=== PATIENT | male | born 1955 | race Caucasian/White ===

== ENCOUNTER 2024-07-28 18:17 | Inpatient (IN) ==
--- NOTE | 2024-07-28 18:24 | Emergency Department Note ---
Impression & Plan Obstructed Scott catheter, Gross hematuria ED Provider Note HISTORY OF PRESENT ILLNESS: Patient is a 68-year-old male presenting with suprapubic pain and concern for catheter complication. Patient had a Scott catheter placed yesterday for urinary obstruction secondary to gross hematuria from a left renal mass. He is scheduled for a left radical nephrectomy in 48 hours. He states that he has been drinking lots of water throughout the day today, but since 2 PM has only had about 100 cc of urine out in his leg bag. He states that he has significant pressure in his suprapubic region. He had called the urology phone number and was referred to the emergency department given his symptoms due to concern for potential need for catheter exchange. Patient is not on any anticoagulation or antiplatelet therapy. Denies any fevers. He has been tolerating the antibiotic without any issue. ROS: as above PHYSICAL EXAM: Constitutional: Patient appears in no acute distress. HENT: Head: Normocephalic and atraumatic. Eyes: EOMI, PERRL Mouth/Throat: Mucous membranes moist. Neck: Trachea midline. Neck supple. Cardiovascular: RRR, No murmurs, rubs or gallops. Intact distal pulses. Pulmonary/Chest: No respiratory distress. Breath sounds clear and equal bilaterally. No wheezes or rales. Abdominal: Abdomen soft, no tenderness, rebound or guarding. Scott catheter in place with leg bag attached to right lower leg. Leg bag has about 100 cc of jung bloody urine. Musculoskeletal: No edema, tenderness or deformity noted. Skin: Warm and dry. No rash, erythema, pallor or cyanosis Psychiatric: Appropriate mood and affect for situation. Neurological: Alert and keenly responsive. CN II-XII grossly intact, moving all extremities equally and fully. MDM: - Vitals signs showed tachycardia - History obtained via patient. History as above. - Chronic conditions affecting care: Hypothyroidism; HTN; left renal mass - Differential diagnoses include, but are not limited to: Renal mass; bladder mass; UTI; ureteral stone - Order placed for continuous cardiac monitoring. At this time, monitor showed rate of 98 bpm with normal sinus rhythm, per my interpretation. - External medical records reviewed. Urine culture from 07/27/2024 was reviewed. Patient has not grown any bacteria. on call pharmacy technician duty note written by Dr. Huang from [id number] was reviewed. He had called in a prescription for tamsulosin to see if it helps with patient's bladder spasms. However, he recommended the patient present to the ER if he notices that his catheter is not draining. -I was at bedside when nursing attempted to manually flush the patient's catheter. The catheter flushed easily but no urine was expressed from the catheter itself. Discussed options with the patient, including removal of the catheter and attempt at spontaneous voiding trial as well as removal of the catheter and replacement with a three-way Scott. Patient was agreeable to placement of a three-way Scott catheter. Decision was made to insert the three- way Scott and do continuous bladder irrigation. Uro-Jet was given to the patient before catheter replacement for some anesthetic. - 3 way scott catheter was placed by nursing staff. Patient was started on continuous bladder irrigation. However, he did clot off while on CBI. This required some manipulation by nursing staff. CBI then was continued. - Discussed case with urologist on-call, Dr. Huang, at 21:44. He was in agreement to bring the patient in for continued CBI, given his gross hematuria. - IV access was obtained and labs sent. Type and screen ordered. - Laboratory workup interpreted by myself showed leukocytosis (WBC 12.11); stable hemoglobin (12.7); stable electrolytes; normal creatinine (though has trended up over the last few days) - Discussion was had with business case analyst about patient's case and need for admission - Hospitalist consulted for admission - [facility] ASSESSMENT AND PLAN: Diagnosis: Gross hematuria; obstructed Scott catheter Plan: Admit Past Med/Surg History Problem List Gross hematuria (Acute) Obstructed Scott catheter (Acute) Scott catheter in place (Acute) Acute urinary retention (Acute) Left kidney mass (Acute) Painless hematuria (Acute) Hypothyroidism (acquired) (~1998) Elevated blood pressure reading in office without diagnosis of hypertension Diverticulitis Medical History Encounter for pre-operative examination Lumbar herniated disc Painless hematuria "it comes and goes" History of hypothyroidism per chart, pt. states [facility] [place] [facility]" Hypertension History of diverticulitis Left kidney mass no biopsy Surgical History History of open reduction and internal fixation (ORIF) procedure (1974) left arm History of partial colectomy (1998) 6 inches removed due to diverticulitis History of appendectomy Hx of cholecystectomy (~1998) Family History Denies family history of Ovarian cancer Prostate cancer Myocardial infarction Breast cancer Colorectal cancer Social History Smoking Status: Current every day smoker Second Hand Exposure: No; Do You Dip or Chew Tobacco: No; Hx Alcohol Use: Yes Alcohol Intake Frequency: Monthly or Less Alcohol Intake Frequency Comment: social Hx Substance Use: No Preferred Language: Maltese Communication Ability: Effective Visual Impairment: No Limitations Hearing Ability: Normal Molder Helper Required: No Beliefs That Will Affect Care: None marital status: Current Living Situation: Spouse current occupational status: employed How many Children do You have: 6 Feels Safe at Home: Yes Childhood Exposure to Second-Hand Smoke: No Diet: regular caffeine: Yes during the past year weight has: remained stable Dental Care, Regularly: No Physical Activity Frequency: Daily Seatbelt Use: always Sunscreen Use: Yes Assistive Devices: Denture - Upper and Glasses Allergies Allergies Allergy/AdvReac Type Severity Reaction Status Date / Time amoxicillin [From Augmentin] Allergy Mild Throat Verified 07/24/24 08:14 bleeding clavulanic acid Allergy Mild throat Verified 07/24/24 08:14 [From Augmentin] bleeding Home Meds Home Medications Medication Instructions Recorded Confirmed lisinopril 10 mg tablet 10 mg PO QAM 07/22/24 07/28/24 Lactobacillus acidophilus 10 10,000 mmu cells PO DAILY 07/24/24 07/28/24 billion cell capsule (Probiotic) Total Beet 650 mg PO DAILY 07/24/24 07/28/24 carica papaya (Papaya Enzyme 1 tab PO DAILY 07/24/24 07/28/24 tablet) cholecalciferol (vitamin D3) 25 25 mcg PO DAILY 07/24/24 07/28/24 mcg (1,000 unit) tablet (Vitamin D3) cinnamon bark 500 mg capsule 1,000 mg PO DAILY 07/24/24 07/28/24 (Cinnamon) coenzyme Q10 100 mg capsule (Co 100 mg PO DAILY 07/24/24 07/28/24 Q-10) folic acid 800 mcg tablet 0.8 mg PO DAILY 07/24/24 07/28/24 garlic 1,000 mg capsule 1,000 mg PO DAILY 07/24/24 07/28/24 magnesium 250 mg tablet 250 mg PO DAILY 07/24/24 07/28/24 multivitamin 1 tab PO DAILY 07/24/24 07/28/24 omega 8-eln-gup-fish oil 1,000 mg 1 cap PO DAILY 07/24/24 07/28/24 (120 mg-180 mg) capsule (Fish Oil) omega-3 240 nv-zzo-njp-cod liver 1 cap PO DAILY 07/24/24 07/28/24 oil 1,000 mg-vit A-vit D3 capsule (cod liver oil) potassium 99 mg tablet 99 mg PO DAILY 07/24/24 07/28/24 vitamin A-vitamin C-vitamin E 1 tab PO DAILY 07/24/24 07/28/24 vitamin E 200 unit capsule 180 mg PO DAILY 07/24/24 07/28/24 Previous Rx's Medication Instructions Recorded cefdinir 300 mg capsule 300 mg PO BID 10 days #20 caps 07/27/24 tamsulosin 0.4 mg capsule 0.4 mg PO DAILY #30 caps 07/28/24 Results & Data (ED) Vital Signs Vital Signs - 24 hr 07/28/24 18:17 07/28/24 18:17 07/28/24 20:30 Temperature 36.6 C Temperature Source Temporal Artery Scan Pulse Rate 98 H Pulse Rate [Apical] 74 Respiratory Rate 18 18 18 Blood Pressure 132/85 Blood Pressure [Left Arm] 146/75 H Blood Pressure Mean 100 Blood Pressure Mean [Left Arm] 98 Pulse Oximetry 95 94 Oxygen Delivery Method Room Air Sepsis Recent Fever Within 48 Hours No Sepsis New/Unexplained Change in Mental Status N/A Sepsis Action Taken by Nursing No Action Required Laboratory Data 07/28/24 20:58 07/28/24 20:58 Lab Results 07/28/24 Range/Units 20:58 WBC 12.11 H (4.8-10.8) K/ul RBC 4.28 L (4.70-6.10) M/uL Hgb 12.7 L (14.0-18.0) g/dl Hct 39.2 L (42.0-52.0) % MCV 91.6 (80.0-100.0) fL MCH 29.7 (25.0-34.0) pg MCHC 32.4 (32.0-36.0) g/dL RDW Std Deviation 43.4 (36.4-46.3) fL RDW Coeff of Jil 13.1 (11.5-14.5) % Plt Count 244 (130-400) K/uL MPV 9.9 (9.4-12.4) fL Immature Gran % (Auto) 0.3 % Neut % (Auto) 67.6 % Lymph % (Auto) 18.2 % [place] % (Auto) 12.5 % Eos % (Auto) 1.0 % Baso % (Auto) 0.4 % Neut # (Auto) 8.19 H (1.40-6.50) K/uL Lymph # (Auto) 2.20 (1.20-3.40) K/uL [place] # (Auto) 1.51 H (0.11-0.59) K/uL Eos # (Auto) 0.12 (0.00-0.50) K/uL Baso # (Auto) 0.05 (0.00-0.20) K/uL Immature Gran # (Auto) 0.04 (0.01-0.20) K/uL Sodium 135 L (136-145) mmol/L Potassium 4.2 (3.5-5.1) mmol/L Chloride 100 (98-107) mmol/L Carbon Dioxide 26 (21-32) mmol/L Anion Gap 9 (3-11) BUN 22 (6-23) mg/dl Creatinine 1.35 (0.6-1.4) mg/dl Est Cr Clr Drug Dosing 57.5 ml/min eGFR 56.83 BUN/Creatinine Ratio 16.3 (10-20) Glucose 106 H (70-99(Fasting)) mg/dl Calcium 10.1 (8.6-10.3) mg/dl Total Bilirubin 0.5 (0.2-1.0) mg/dl AST 17 (13-39) U/L ALT 8 (7-52) U/L Alkaline Phosphatase 78 (34-104) U/L Total Protein 7.9 (6.0-8.3) gm/dl Albumin 4.3 (3.4-5.0) gm/dl Globulin 3.6 (2.5-4.0) gm/dl Albumin/Globulin Ratio 1.2 (0.9-2) Administered Medications Discontinued Medications Lidocaine HCl (Lidocaine 2% Jelly 5 Ml Tube) 5 ml EXT NOW ONE Stop: 07/28/24 18:42 Last Admin: 07/28/24 19:08 Dose: 5 ml Documented By: [email or web address] Tamsulosin HCl (Tamsulosin Hcl 0.4 Mg Cap) 0.4 mg PO NOW ONE Stop: 07/28/24 18:42 Last Admin: 07/28/24 19:08 Dose: 0.4 mg Documented By: OUMOU Discharge Plan Visit Data Chief Complaint: Catheter Replacement Stated Complaint: CATHETER ISSUE ED Provider: Kiya Noel Discharge Problem: Obstructed Scott catheter, Gross hematuria Discharge Instructions Krames/Other Patient Handouts: Indwelling Urinary Catheter Dc, ED Scott Catheter, Care Forms Stand Alone Forms: [facility] Prescriptions Prescriptions: No Action tamsulosin 0.4 mg capsule 0.4 mg PO DAILY Qty: 30 0RF lisinopril 10 mg tablet 10 mg PO QAM multivitamin Tablet 1 tab PO DAILY vitamin E 200 unit Capsule 180 mg PO DAILY Papaya Enzyme Tablet 1 tab PO DAILY Rx Instructions: administer with meals garlic 1,000 mg Capsule 1,000 mg PO DAILY potassium 99 mg Tablet 99 mg PO DAILY magnesium 250 mg Tablet 250 mg PO DAILY folic acid 800 mcg Tablet 0.8 mg PO DAILY Antioxidant Tablet,Chewable 1 tab PO DAILY coenzyme Q10 [Co Q-10] 100 mg Capsule 100 mg PO DAILY cinnamon bark [Cinnamon] 500 mg Capsule 1,000 mg PO DAILY cholecalciferol (vitamin D3) [Vitamin D3] 25 mcg (1,000 unit) Tablet 25 mcg PO DAILY omega 5-xjs-nmb-fish oil [Fish Oil] 1,000 (120-180) mg Capsule 1 cap PO DAILY Probiotic 10 billion cell Capsule 10,000 mmu cells PO DAILY cod liver oil 240-1,000 mg Capsule 1 cap PO DAILY Total Beet 1 unit 650 mg PO DAILY cefdinir 300 mg capsule 300 mg PO BID 10 Days Qty: 20 0RF Referrals Referrals: Marito Zaman DO [Primary Care Provider] -
[2024-07-28] MEDS: LIDOCAINE 2% JELLY 5 ML TUBE EXT ONE (19:08)
[2024-07-28] MEDS: TAMSULOSIN HCL 0.4 MG CAP PO ONE (19:08)
--- NOTE | 2024-07-28 21:13 | Urology Consultation ---
<Statement entered by Taran Huang MD - 07/29/24 12:28> 68-year-old male with hematuria, likely related to his left renal mass. Would recommend continuing CBI, hand irrigate if needed for clots. He is already scheduled for nephrectomy on 07/30, which will hopefully be definitive management for his hematuria. Urology will follow along. Date of Consultation July 28, 2024 Assessment & Plan (1) Obstructed Breen catheter: I discussed with the treating emergency room physician the patient is being admitted on the hospitalist service. From a urologic perspective we recommend the following: In the emergency department the patient had his existing Breen catheter removed and an 17 Citizen [place] three-way Breen catheter was placed by the nursing staff. Continuous bladder irrigation was initiated and the patient's catheter clogged again. The emergency department staff was able to flush and irrigate the catheter and get continuous bladder irrigation running which is now clear. Would recommend continuing continuous bladder irrigation at this time If patient's catheter becomes clogged again, CBI can be temporarily halted and manual flushing and irrigation can be employed to unclog the catheter, reinstituting CBI thereafter Would recommend following serial hemoglobin and hematocrit Will monitor the patient's clinical status. If it appears that the patient needs to remain hospitalized until 07/30/[address] Kc so appropriate arrangements can be made for patient potentially have his surgery performed on an inpatient basis Additional recommendations will be forthcoming based on his clinical course as it unfolds Addendum (5:50 am) I was called by nursing staff the patient's continuous bladder irrigation and clotted off and they were unable to successfully and irrigate the catheter. The nurses noted that they BladderScan the patient for approximately 381 cc of urine. Due to the Breen catheter not draining the nurses had appropriately shut off the continuous bladder irrigation. I was notified of this at approximately 590 a.m. and reported the bedside within 5 minutes. Upon reporting to the bedside the patient was complaining of some bladder/suprapubic discomfort. I hand irrigated the Breen catheter with copious amounts of sterile saline. While performing this maneuver I retrieved several blood clots. I performed this until the urine was clear without any further visible clots. Following this the continuous bladder irrigation was turned back on and was running appropriately draining pink-tinged urine with no visible clots at this time. The patient reported a marked symptomatic relief. Will continue monitor closely History of Present Illness Reason for Consultation: Urinary retention History of Present Illness This is a 68-year-old male who is scheduled for a left radical nephrectomy by Dr. Kc of [facility] physician of urology on 07/30/2024. The patient was recently in the emergency department on 07/27/2024 secondary to urinary retention. Patient had a catheter placed at that time and was able to be discharged home. Of note, on 07/27/2024 CBC revealed white blood cell count was 12.1. His hemoglobin and hematocrit were 13.0 and 39.2. His platelet count was 275,000. Coagulation studies were noted to be normal. Chemistry profile showed sodium was 131 with a potassium of 4.2. His BUN and creatinine were both normal. Urinalysis showed 1+ leukocyte Estrace and 11-20 white blood cells per high-power field. There is no bacteria or nitrates noted on this study. Due to his urinalysis results the patient was given intravenous Rocephin in the emergency department and discharged home on oral cefdinir. The patient presented back to the emergency department this evening secondary to suprapubic discomfort and he noted that he has had minimal drainage from his catheter with some leakage around the catheter. He was concerned that his catheter was blocked so he presented to the emergency department. He specifically denies any lightheadedness or dizziness. He denies any fevers, shakes, or chills. He denies any nausea or vomiting. He does report suprapubic discomfort as noted above but denies any overt abdominal pain. He also denies any back or flank pain. Repeat laboratory work has been sent and is pending at this time. At the time of my interview he was resting comfortably in bed he was in no distress. Allergies Allergy/AdvReac Type Severity Reaction Status Date / Time amoxicillin [From Augmentin] Allergy Mild Throat Verified 07/24/24 08:14 bleeding clavulanic acid Allergy Mild throat Verified 07/24/24 08:14 [From Augmentin] bleeding Home Medications Medication Instructions Recorded Confirmed Type lisinopril 10 mg tablet 10 mg PO QAM 07/22/24 07/28/24 History Lactobacillus acidophilus 10 10,000 mmu cells PO DAILY 07/24/24 07/28/24 History billion cell capsule (Probiotic) Total Beet 650 mg PO DAILY 07/24/24 07/28/24 History carica papaya (Papaya Enzyme 1 tab PO DAILY 07/24/24 07/28/24 History tablet) cholecalciferol (vitamin D3) 25 25 mcg PO DAILY 07/24/24 07/28/24 History mcg (1,000 unit) tablet (Vitamin D3) cinnamon bark 500 mg capsule 1,000 mg PO DAILY 07/24/24 07/28/24 History (Cinnamon) coenzyme Q10 100 mg capsule (Co 100 mg PO DAILY 07/24/24 07/28/24 History Q-10) folic acid 800 mcg tablet 0.8 mg PO DAILY 07/24/24 07/28/24 History garlic 1,000 mg capsule 1,000 mg PO DAILY 07/24/24 07/28/24 History magnesium 250 mg tablet 250 mg PO DAILY 07/24/24 07/28/24 History multivitamin 1 tab PO DAILY 07/24/24 07/28/24 History omega 3-ddx-kyn-fish oil 1,000 mg 1 cap PO DAILY 07/24/24 07/28/24 History (120 mg-180 mg) capsule (Fish Oil) omega-3 240 bn-lnn-hbt-cod liver 1 cap PO DAILY 07/24/24 07/28/24 History oil 1,000 mg-vit A-vit D3 capsule (cod liver oil) potassium 99 mg tablet 99 mg PO DAILY 07/24/24 07/28/24 History vitamin A-vitamin C-vitamin E 1 tab PO DAILY 07/24/24 07/28/24 History vitamin E 200 unit capsule 180 mg PO DAILY 07/24/24 07/28/24 History cefdinir 300 mg capsule 300 mg PO BID 10 days #20 caps 07/27/24 07/28/24 Rx tamsulosin 0.4 mg capsule 0.4 mg PO DAILY #30 caps 07/28/24 07/28/24 Rx Patient History Medical History Encounter for pre-operative examination Lumbar herniated disc Painless hematuria "it comes and goes" History of hypothyroidism per chart, pt. states [facility] [place] [facility]" Hypertension History of diverticulitis Left kidney mass no biopsy Surgical History History of open reduction and internal fixation (ORIF) procedure (1974) left arm History of partial colectomy (1998) 6 inches removed due to diverticulitis History of appendectomy Hx of cholecystectomy (~1998) Family History Denies family history of Ovarian cancer Prostate cancer Myocardial infarction Breast cancer Colorectal cancer Social History Smoking Status: Current every day smoker Second Hand Exposure: No; Do You Dip or Chew Tobacco: No; Hx Alcohol Use: Yes Alcohol Intake Frequency: Monthly or Less Alcohol Intake Frequency Comment: social Hx Substance Use: No Preferred Language: Setswana Communication Ability: Effective Visual Impairment: No Limitations Hearing Ability: Normal Riding Double Required: No Beliefs That Will Affect Care: None marital status: Current Living Situation: Spouse current occupational status: employed How many Children do You have: 6 Feels Safe at Home: Yes Childhood Exposure to Second-Hand Smoke: No Diet: regular caffeine: Yes during the past year weight has: remained stable Dental Care, Regularly: No Physical Activity Frequency: Daily Seatbelt Use: always Sunscreen Use: Yes Assistive Devices: Denture - Upper and Glasses Review of Systems Review of Systems: All systems reviewed & are unremarkable except as noted in HPI & below Physical Exam Constitutional: WD/WN, vitals as above Eyes: no conjunctival abnormality Wears glasses ENMT: Ears: no hearing impairment and no external ear abnormality Mouth: no oropharynx abnormality Neck: trachea midline Respiratory: normal respiratory effort; no respiratory distress and no labored breathing Cardiovascular: Rate/Rhythm: regular rate and regular rhythm Gastrointestinal (Abdomen): Abdomen is rotund but soft. There is no pain with palpation Musculoskeletal: No calf tenderness Skin: no rashes Neurologic: moves all extremities Psychiatric: A+Ox3, euthymic affect Genitourinary: No CVA tenderness with percussion bilaterally Breen catheter is in place with continuous bladder irrigation running. The catheter output appears to be clear at this time Results & Data Vital Signs (Past 12 Hours) Vital Signs Temp Pulse Resp BP Pulse Ox 07/28/24 18:17 18 07/28/24 18:17 36.6 C 98 H 18 132/85 95 PG Care Time/CCT Total # of Minutes Spent Total Time Spent with Patient: Total time spent is greater than 50% in coordination of care (as documented) at patient's floor/unit and/or counseling patient: Coding Level of Care Code 24692 INT INP/OBS CARE 3/75MIN Diagnoses Obstructed Breen catheter T83.091A
[2024-07-28 21:14] LABS: Basophils # (auto) 0.05 K/uL (0.00-0.20); Basophils % (auto) 0.4 %; Eosinophils # (auto) 0.12 K/uL (0.00-0.50); Hematocrit (blood only) 39.2 % (42.0-52.0); Hemoglobin 12.7 g/dl (14.0-18.0); Immature Granulocytes # (auto) 0.04 K/uL (0.01-0.20); Immature Granulocytes % (auto) 0.3 %; Lymphocytes % (auto) 18.2 %; Mean Corpuscular Hemoglobin 29.7 pg (25.0-34.0); Mean Corpuscular Hgb Conc 32.4 g/dL (32.0-36.0); Mean Corpuscular Volume 91.6 fL (80.0-100.0); Mean Platelet Volume 9.9 fL (9.4-12.4); Monocytes # (auto) 1.51 K/uL (0.11-0.59); Monocytes % (auto) 12.5 %; Neutrophils # (auto) 8.19 K/uL (1.40-6.50); Neutrophils % (auto) 67.6 %; Platelet Count 244 K/uL (130-400); RDW Coefficient of Variation 13.1 % (11.5-14.5); RDW Standard Deviation 43.4 fL (36.4-46.3); Red Blood Count 4.28 M/uL (4.70-6.10); White Blood Count 12.11 K/ul (4.8-10.8)
[2024-07-28 21:29] LABS: Albumin Globulin Ratio 1.2 (0.9-2); Albumin Level 4.3 gm/dl (3.4-5.0); BUN Creatinine Ratio 16.3 (10-20); Bilirubin,Total 0.5 mg/dl (0.2-1.0); Calcium 10.1 mg/dl (8.6-10.3); Creatinine Clr Calc Pharmacy 57.5 ml/min; Globulin 3.6 gm/dl (2.5-4.0); Potassium 4.2 mmol/L (3.5-5.1); Total Protein 7.9 gm/dl (6.0-8.3)
--- NOTE | 2024-07-28 22:32 | History & Physical Report ---
Date of Service July 28, 2024 Assessment & Plan (1) Gross hematuria: (2) Obstructed Breen catheter: (3) Acute urinary retention: (4) Left kidney mass: Plan Patient is a 68 yo w/ a PMHx of l. kidney mass, Hx of diverticulitis, Hx of hypothyroidism (no longer on thyroid meds), lumbar herniated disc, HTN, Hx of appendectomy, Hx of partial colectomy, Hx of cholecystectomy, presenting with suprapubic pain, concern for catheter complication involving urinary obstruction followed by gross hematuria. Patient had a Breen catheter placed 07/27 for urinary obstruction secondary to gross hematuria from a left renal mass. 1) Urinary obstruction/Hematuria/L. Renal mass - continue CBI (continuous bladder irrigation) - hemodynamically stable; labs stable: Hgb, 12.7; Plts, 244 - Urology consulted - UA (07/27): +LE, 10-20 WBC, +3Ur Blood; new UA (w/ reflex Cx) ordered, pending - Started ceftriaxone, 2000g, IV, q24 hrs - Surg scheduled in 48 hrs from time of admission (may be moved up) Chronic stable conditions #HTN - continue lisinopril, 10 mg, daily #Preventive Health - on a variety of vitamins, supplements - continued multivitamin, Mg, Code status: Full code VTE Prophylaxis: SCD's (to the knee) Diet: NPO/ Heart-healthy once able to eat Disposition: Med-Tele Admission and Anticipated Discharge Date Admission Date: Attending addendum: I have physically seen this patient, have supervised the medical residents activities, and agree with the H&P unless as otherwise noted. Assessment and Plan: The patient is a 68-year-old male with past medical history including left kidney mass, history of diverticulitis, hypothyroidism, lumbar herniated disc, hypertension, appendectomy, partial colectomy, cholecystectomy. He presents to the emergency department with suprapubic pain, and gross hematuria, concerning for possible complication of catheter and urinary obstruction. He had a Breen catheter placed on 07/27, and in the emergency department was able to have it irrigated clear, and patient was started on continuous bladder irrigation. The patient was then referred for evaluation for [facility]. Urinary obstruction/hematuria/left renal mass/Breen catheter complication- Follow urine culture and sensitivity Continue continuous bladder irrigation Ceftriaxone 2 g IV every 24 hours Continue tamsulosin 0.4 mg p.o. daily Consult urology, with plans to potentially undergo surgery in the next 48 hours Hypertension- Hold lisinopril History of Present Illness Chief Complaint: urinary retention, hematuria Primary Care Provider: Marito Zaman DO Patient is a 68 yo w/ a PMHx of l. kidney mass, Hx of diverticulitis, Hx of hypothyroidism (no longer on thyroid meds), lumbar herniated disc, HTN, Hx of appendectomy, Hx of partial colectomy, Hx of cholecystectomy, presenting with suprapubic pain, concern for catheter complication involving urinary obstruction followed by gross hematuria. Patient had a Breen catheter placed 07/27 for urinary obstruction secondary to gross hematuria from a left renal mass. He is scheduled for a left radical nephrectomy in 48 hours. He states that he has been drinking lots of water throughout the day today, but since 2 pm has only had about 100 cc of urine out in his leg bag. He states pressure has been relieved temporarily in his suprapubic region once the CBI was started. He had called the urology phone number and was referred to the emergency department given his symptoms due to concern for potential need for catheter exchange. Patient is not on any anticoagulation or antiplatelet therapy. Denies any fevers. He has been taking cefdinir as scheduled and took some tamsulosin tonight as well. Allergies Allergy/AdvReac Type Severity Reaction Status Date / Time amoxicillin [From Augmentin] Allergy Mild Throat Verified 07/24/24 08:14 bleeding clavulanic acid Allergy Mild throat Verified 07/24/24 08:14 [From Augmentin] bleeding Home Medications Medication Instructions Recorded Confirmed Type lisinopril 10 mg tablet 10 mg PO QAM 07/22/24 07/28/24 History Lactobacillus acidophilus 10 10,000 mmu cells PO DAILY 07/24/24 07/28/24 History billion cell capsule (Probiotic) Total Beet 650 mg PO DAILY 07/24/24 07/28/24 History carica papaya (Papaya Enzyme 1 tab PO DAILY 07/24/24 07/28/24 History tablet) cholecalciferol (vitamin D3) 25 25 mcg PO DAILY 07/24/24 07/28/24 History mcg (1,000 unit) tablet (Vitamin D3) cinnamon bark 500 mg capsule 1,000 mg PO DAILY 07/24/24 07/28/24 History (Cinnamon) coenzyme Q10 100 mg capsule (Co 100 mg PO DAILY 07/24/24 07/28/24 History Q-10) folic acid 800 mcg tablet 0.8 mg PO DAILY 07/24/24 07/28/24 History garlic 1,000 mg capsule 1,000 mg PO DAILY 07/24/24 07/28/24 History magnesium 250 mg tablet 250 mg PO DAILY 07/24/24 07/28/24 History multivitamin 1 tab PO DAILY 07/24/24 07/28/24 History omega 6-ctv-jzx-fish oil 1,000 mg 1 cap PO DAILY 07/24/24 07/28/24 History (120 mg-180 mg) capsule (Fish Oil) omega-3 240 fq-gqn-nwo-cod liver 1 cap PO DAILY 07/24/24 07/28/24 History oil 1,000 mg-vit A-vit D3 capsule (cod liver oil) potassium 99 mg tablet 99 mg PO DAILY 07/24/24 07/28/24 History vitamin A-vitamin C-vitamin E 1 tab PO DAILY 07/24/24 07/28/24 History vitamin E 200 unit capsule 180 mg PO DAILY 07/24/24 07/28/24 History cefdinir 300 mg capsule 300 mg PO BID 10 days #20 caps 07/27/24 07/28/24 Rx tamsulosin 0.4 mg capsule 0.4 mg PO DAILY #30 caps 07/28/24 07/28/24 Rx Past Med/Surg History Problem List Gross hematuria (Acute) Obstructed Breen catheter (Acute) Breen catheter in place (Acute) Acute urinary retention (Acute) Left kidney mass (Acute) Painless hematuria (Acute) Hypothyroidism (acquired) (~1998) Elevated blood pressure reading in office without diagnosis of hypertension Diverticulitis Medical History Encounter for pre-operative examination Lumbar herniated disc Painless hematuria "it comes and goes" History of hypothyroidism per chart, pt. states [facility] [place] and "[facility]'s ok" Hypertension History of diverticulitis Left kidney mass no biopsy Surgical History History of open reduction and internal fixation (ORIF) procedure (1974) left arm History of partial colectomy (1998) 6 inches removed due to diverticulitis History of appendectomy Hx of cholecystectomy (~1998) Family History Denies family history of Ovarian cancer Prostate cancer Myocardial infarction Breast cancer Colorectal cancer Social History Smoking Status: Current every day smoker Second Hand Exposure: No; Do You Dip or Chew Tobacco: No; Hx Alcohol Use: Yes Alcohol Intake Frequency: Monthly or Less Alcohol Intake Frequency Comment: social Hx Substance Use: No Preferred Language: Mongolian Communication Ability: Effective Visual Impairment: No Limitations Hearing Ability: Normal 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 Beliefs That Will Affect Care: None marital status: Current Living Situation: Spouse current occupational status: employed How many Children do You have: 6 Feels Safe at Home: Yes Childhood Exposure to Second-Hand Smoke: No Diet: regular caffeine: Yes during the past year weight has: remained stable Dental Care, Regularly: No Physical Activity Frequency: Daily Seatbelt Use: always Sunscreen Use: Yes Assistive Devices: Denture - Upper and Glasses Review of Systems Constitutional: no fever, no chills and no body aches Respiratory: no cough, no chest congestion, no dyspnea and no wheezing Cardiovascular: no chest pain and no palpitations Gastrointestinal: no abdominal pain, no nausea, no vomiting, no constipation and no diarrhea/loose stools Genitourinary: + difficulty urinating, + decreased urin ation, + hematuria and + genital pain; no flank pain or no scrotal swelling Hematologic / Lymphatic: no easy bleeding and no easy bruising Physical Exam Constitutional: WD/WN, vitals as above Respiratory: normal respiratory effort, lungs clear to auscultation Cardiovascular: RRR, no murmur, no edema Gastrointestinal (Abdomen): normal bowel sounds, soft, nontender, no hepatosplenomegaly Psychiatric: A+Ox3, euthymic affect Genitourinary: bladder normal to inspection and bladder normal to palpation; no CVA tenderness, no penis abnormality and no scrotum abnormality Results & Data Results & Data Vital Signs (Past 12 Hours) Vital Signs Temp Pulse Pulse Resp BP BP Pulse Ox 07/28/24 22:00 78 18 127/81 93 07/28/24 20:30 74 18 146/75 H 94 07/28/24 18:17 18 07/28/24 18:17 36.6 C 98 H 18 132/85 95 O2 Del Method 07/28/24 22:00 Room Air 07/28/24 20:30 Room Air 07/28/24 18:17 07/28/24 18:17
[2024-07-29] MEDS: cefTRIAXone SODIUM 2,000 MG/50 ML BAG IV SCH (01:29)
--- NOTE | 2024-07-29 04:54 | Billing Data ---
Date of Service July 29, 2024 Coding Level of Care Code 84829 INT INP/OBS CARE
[2024-07-29] MEDS: PHENAZOPYRIDINE HCL 200 MG TAB PO PRN (05:04)
[2024-07-29] MEDS: ACETAMINOPHEN 325 MG TAB PO PRN (08:04)
[2024-07-29] MEDS: CHOLECALCIFEROL 25 MCG (1000 UNITS) TAB PO SCH (08:05)
[2024-07-29] MEDS: lisinopril 10 MG TAB PO SCH (08:05)
[2024-07-29] MEDS: FOLIC ACID 400 MCG TAB PO SCH (08:05)
[2024-07-29] MEDS: MAGNESIUM OXIDE 400 MG TAB PO SCH (08:05)
[2024-07-29] MEDS: MULTIVITAMIN TAB PO SCH (08:06)
[2024-07-29] MEDS: TAMSULOSIN HCL 0.4 MG CAP PO SCH (08:06)
--- NOTE | 2024-07-29 08:36 | Hospitalist Progress Note ---
Date of Service July 29, 2024 Assessment & Plan (1) Gross hematuria: (2) Obstructed Breen catheter: (3) Acute urinary retention: (4) Left kidney mass: Plan Patient is a 68 yo w/ a PMHx of l. kidney mass, Hx of diverticulitis, Hx of hypothyroidism (no longer on thyroid meds), lumbar herniated disc, HTN, Hx of appendectomy, Hx of partial colectomy, Hx of cholecystectomy, presenting with suprapubic pain, concern for catheter complication involving urinary obstruction followed by gross hematuria. Patient had a Breen catheter placed 07/27 for urinary obstruction secondary to gross hematuria from a left renal mass. 1) Urinary obstruction/Hematuria/L. Renal mass - continue CBI (continuous bladder irrigation) - hemodynamically stable; labs stable: - Urology plans for cysto and radical left nephrectomy 07/30/24 - Started ceftriaxone, 2000g, IV, q24 hrs Chronic stable conditions #HTN - continue lisinopril, 10 mg, daily #Preventive Health - on a variety of vitamins, supplements - continued multivitamin, Mg, Code status: Full code VTE Prophylaxis: SCD's (to the knee) Admission and Anticipated Discharge Date Admission Date: July 29, 2024 Subjective pt is in good spirits, did have some hand irrigation this am 07/29/24, tentatively scheduled for left radical nephrectomy 07/30/24 urine has cleared with CBI Physical Exam Physical Exam: Pleasant abd is without pain to examination Results & Data Results & Data Vital Signs (Past 12 Hours) Vital Signs Temp Pulse Pulse Pulse Resp BP BP 07/29/24 07:01 98.1 F 82 16 128/78 07/29/24 02:40 98.2 F 94 H 20 174/78 H 07/29/24 02:15 76 18 145/81 H 07/29/24 00:00 79 18 126/70 07/28/24 23:10 82 07/28/24 23:09 81 18 07/28/24 22:00 78 18 127/81 Pulse Ox O2 Del Method 07/29/24 07:01 92 Room Air 07/29/24 02:40 98 Room Air 07/29/24 02:15 98 07/29/24 00:00 94 Room Air 07/28/24 23:10 07/28/24 23:09 96 Room Air 03/16/25 22:00 93 Room Air Laboratory Results review cbc review chemistry PG Care Time/CCT Total # of Minutes Spent Total Time Spent with Patient: Total time spent is greater than 50% in coordination of care (as documented) at patient's floor/unit and/or counseling patient: Coding Level of Care Code 88959 SUB INP/OBS CARE 3/50MIN Diagnoses Gross hematuria R31.0 Obstructed Breen catheter T83.091A Acute urinary retention R33.8 Left kidney mass N28.89
[2024-07-29] MEDS ORDERED: NON-FORMULARY MEDICATION (Coenzyme Q10 [Co Q-10] 100 mg Capsule) PO SCH (09:00)
[2024-07-29] MEDS ORDERED: NON-FORMULARY MEDICATION (Potassium 99 mg Tablet) PO SCH (09:00)
[2024-07-29 09:01] LABS: Appearance Urine Clear (Clear); Bacteria Urine Automated None Seen (None Seen); Bilirubin Urine Negative (Negative); Blood Urine 3+ (Negative); Cast Urine Automated 0-2 /lpf (0-2); Color Urine Yellow; Epithelial Cell Urine Auto 0-2 /hpf (0-2); Glucose Urine UA Negative (Negative); Ketones Urine Negative (Negative); Leukocyte Esterase Urine Negative (Negative); Nitrite Urine Negative (Negative); Protein Urine Negative (Negative); RBC Urine Automated >20 /hpf (0-2); Specific Gravity Urine 1.005 (1.000-1.030); Urobilinogen Urine Negative (Negative); WBC Urine Automated 0-5 /hpf (0-5); pH Urine 5.5 (4.5-7.5)
--- NOTE | 2024-07-29 09:51 | Urology Progress Note ---
Date of Service July 29, 2024 Assessment & Plan (1) Left kidney mass: (2) Acute urinary retention: (3) Gross hematuria: (4) Obstructed Breen catheter: Plan: Follow-up of left kidney mass, gross hematuria Patient afebrile, hemodynamically stable No new labs at time of visit, trend labs Breen patent and draining with CBI on medium Maintain Breen catheter at this time Continue with CBI and wean as appropriate Okay to hand irrigate catheter as needed if it becomes obstructed Discussed with Dr. Kc, will keep left radical nephrectomy as scheduled tomorrow Possible cystoscopy and clot evacuation tomorrow if needed NPO at midnight for procedure Continue supportive care and medical management per hospital medicine will follow Admission and Anticipated Discharge Date Admission Date: July 29, 2024 Subjective Patient seen and examined at bedside this morning. Issues with catheter obstruction earlier this AM, irrigated by urology PA. Breen patent and draining clear yellow with CBI on medium at time of exam. Patient denies suprapubic discomfort at present. Denies nausea, vomiting, fever or chills. Review of Systems Constitutional: as per Subjective / HPI Genitourinary: + as per Subjective / HPI Physical Exam Constitutional: no acute distress Respiratory: normal respiratory effort; no respiratory distress and no labored breathing Gastrointestinal (Abdomen): Inspection/Auscultation: abdomen normal to inspection Musculoskeletal: Head/Neck/Chest: normocephalic Neurologic: moves all extremities and awake Psychiatric: Orientation: alert and oriented x 3 Genitourinary: Breen patent and draining clear yellow urine with CBI on medium. CBI was slowed slightly during exam and urine became slightly bloody. CBI returned to medium slow. Results & Data Vital Signs (Past 12 Hours) Vital Signs Temp Pulse Pulse Pulse Resp BP BP 07/29/24 07:01 36.7 C 82 16 128/78 07/29/24 02:40 36.8 C 94 H 20 174/78 H 07/29/24 02:15 76 18 145/81 H 07/29/24 00:00 79 18 126/70 07/28/24 23:10 82 07/28/24 23:09 81 18 07/28/24 22:00 78 18 127/81 Pulse Ox O2 Del Method 07/29/24 07:01 92 Room Air 03/17/25 02:40 98 Room Air 07/29/24 02:15 98 07/29/24 00:00 94 Room Air 07/28/24 23:10 07/28/24 23:09 96 Room Air 07/28/24 22:00 93 Room Air PG Care Time/CCT Total # of Minutes Spent Total Time Spent with Patient: Total time spent is greater than 50% in coordination of care (as documented) at patient's floor/unit and/or counseling patient: Coding Level of Care Code 60569 SUB INP/OBS CARE 2/35MIN Diagnoses Left kidney mass N28.89 Acute urinary retention R33.8 Gross hematuria R31.0 Obstructed Breen catheter T83.091A
[2024-07-29 12:49] LABS: Hematocrit (blood only) 39.3 % (42.0-52.0); Hemoglobin 12.9 g/dl (14.0-18.0); Mean Corpuscular Hemoglobin 29.9 pg (25.0-34.0); Mean Corpuscular Hgb Conc 32.8 g/dL (32.0-36.0); Mean Corpuscular Volume 91.2 fL (80.0-100.0); Mean Platelet Volume 9.9 fL (9.4-12.4); Platelet Count 241 K/uL (130-400); RDW Coefficient of Variation 13.2 % (11.5-14.5); RDW Standard Deviation 44.4 fL (36.4-46.3); Red Blood Count 4.31 M/uL (4.70-6.10); White Blood Count 11.54 K/ul (4.8-10.8)
[2024-07-29 13:06] LABS: BUN Creatinine Ratio 15.3 (10-20); Calcium 10.2 mg/dl (8.6-10.3); Creatinine Clr Calc Pharmacy 44.9 ml/min
[2024-07-29] MEDS: HYDROmorphone INJ 0.5 MG/0.5 ML SYR IV PRN (15:08)
--- NOTE | 2024-07-30 07:59 | Hospitalist Progress Note ---
Date of Service July 30, 2024 Assessment & Plan (1) Gross hematuria: (2) Obstructed Breen catheter: (3) Acute urinary retention: (4) Left kidney mass: Plan Patient is a 68 yo w/ a PMHx of l. kidney mass, Hx of diverticulitis, Hx of hypothyroidism (no longer on thyroid meds), lumbar herniated disc, HTN, Hx of appendectomy, Hx of partial colectomy, Hx of cholecystectomy, presenting with suprapubic pain, concern for catheter complication involving urinary obstruction followed by gross hematuria. Patient had a Breen catheter placed 07/27 for urinary obstruction secondary to gross hematuria from a left renal mass. 1) Urinary obstruction/Hematuria/L. Renal mass - continue CBI (continuous bladder irrigation) - hemodynamically stable; labs stable: - Urology now s/p radical left nephrectomy 07/30/24 - Started ceftriaxone, 2000g, IV, q24 hrs Chronic stable conditions #HTN - hold lisinopril, 10 mg follow bp #Preventive Health - on a variety of vitamins, supplements - continued multivitamin, Mg, Code status: Full code VTE Prophylaxis: SCD's (to the knee) Admission and Anticipated Discharge Date Admission Date: July 29, 2024 Subjective pt seen pre op and post op doing well with good pain control darker urine now s/p nephrectomy Physical Exam Physical Exam: Pleasant abd is without pain to examination cardiac exam is regular lungs are clear Results & Data Results & Data Vital Signs (Past 12 Hours) Vital Signs Temp Pulse Resp BP Pulse Ox O2 Del Method 07/30/24 07:47 97.7 F 81 20 128/78 94 Room Air 07/30/24 07:19 98.1 F 80 18 128/73 93 Room Air PG Care Time/CCT Total # of Minutes Spent Total Time Spent with Patient: Total time spent is greater than 50% in coordination of care (as documented) at patient's floor/unit and/or counseling patient: Coding Level of Care Code 63258 SUB INP/OBS CARE 3/50MIN Diagnoses Gross hematuria R31.0 Obstructed Breen catheter T83.091A Acute urinary retention R33.8 Left kidney mass N28.89
--- NOTE | 2024-07-30 10:30 | Urology Progress Note ---
Date of Service July 30, 2024 Assessment & Plan (1) Gross hematuria: (2) Left kidney mass: (3) Acute urinary retention: (4) Obstructed Breen catheter: Plan: Follow-up of left kidney mass, gross hematuria Patient afebrile, hemodynamically stable Breen patent and draining with CBI on medium slow Maintain Breen catheter at this time Okay to hand irrigate catheter as needed if it becomes obstructed Proceed with hand-assisted laparoscopic left nephrectomy today as scheduled Possible cystoscopy and clot evacuation if needed Keep NPO Continue supportive care and medical management per hospital medicine will follow Admission and Anticipated Discharge Date Admission Date: July 29, 2024 Subjective Patient seen and examined at bedside this morning. No acute events overnight. Denies pain at present. He reports nursing irrigated catheter a few times. Breen intact, draining clear yellow urine with CBI on medium slow. Review of Systems Constitutional: as per Subjective / HPI Genitourinary: + as per Subjective / HPI Physical Exam Constitutional: no acute distress Respiratory: normal respiratory effort; no respiratory distress and no labored breathing Gastrointestinal (Abdomen): Inspection/Auscultation: abdomen normal to inspection Musculoskeletal: Head/Neck/Chest: normocephalic Neurologic: moves all extremities and awake Psychiatric: Orientation: alert and oriented x 3 Genitourinary: Breen patent and draining clear yellow urine with CBI on medium/slow flow. Results & Data Vital Signs (Past 12 Hours) Vital Signs Temp Pulse Resp BP Pulse Ox O2 Del Method 07/30/24 07:47 36.5 C 81 20 128/78 94 Room Air 07/30/24 07:19 36.7 C 80 18 128/73 93 Room Air PG Care Time/CCT Total # of Minutes Spent Total Time Spent with Patient: Total time spent is greater than 50% in coordination of care (as documented) at patient's floor/unit and/or counseling patient: Coding Level of Care Code 90258 SUB INP/OBS CARE 06/08MIN Diagnoses Gross hematuria R31.0 Left kidney mass N28.89 Acute urinary retention R33.8 Obstructed Breen catheter T83.091A
--- NOTE | 2024-07-30 10:30 | History & Physical Bridge Note ---
Date of Service July 30, 2024 History & Physical Bridge Note I have examined the patient, reviewed the History & Physical and in the interval since the performance of the History & Physical I have noted the following changes of clinical significance: he has been admitted with hematuria, we will add possible cystoscopy and clot evacuation to his surgical consent.
--- NOTE | 2024-07-30 10:34 | Anesthesiology Consultation ---
Date of Service July 30, 2024 Assessment & Plan (1) Encounter for pre-operative examination: Chart Review Chart Review: Acceptable Risk for Surgery and Patient NOT seen in Pre Admission Testing Consults Requested none History Surgery Operation Date: 07/30/24 10:50 Proposed Procedures p Hand Assisted Laparoscopic Nephrectomy - Left - Kemal Kc MD Height/Weight Height: 5 ft 3 in Weight: 93.185 kg Allergies Allergy/AdvReac Type Severity Reaction Status Date / Time amoxicillin [From Augmentin] Allergy Mild Throat Verified 07/24/24 08:14 bleeding clavulanic acid Allergy Mild throat Verified 07/24/24 08:14 [From Augmentin] bleeding Medications Home Medications Medication Instructions Recorded Confirmed Last Taken lisinopril 10 mg tablet 10 mg PO QAM 07/22/24 07/28/24 Unknown Lactobacillus acidophilus 10 10,000 mmu cells PO DAILY 07/24/24 07/28/24 Unknown billion cell capsule (Probiotic) Total Beet 650 mg PO DAILY 07/24/24 07/28/24 Unknown carica papaya (Papaya Enzyme 1 tab PO DAILY 07/24/24 07/28/24 Unknown tablet) cholecalciferol (vitamin D3) 25 25 mcg PO DAILY 07/24/24 07/28/24 Unknown mcg (1,000 unit) tablet (Vitamin D3) cinnamon bark 500 mg capsule 1,000 mg PO DAILY 07/24/24 07/28/24 Unknown (Cinnamon) coenzyme Q10 100 mg capsule (Co 100 mg PO DAILY 07/24/24 07/28/24 Unknown Q-10) folic acid 800 mcg tablet 0.8 mg PO DAILY 07/24/24 07/28/24 Unknown garlic 1,000 mg capsule 1,000 mg PO DAILY 07/24/24 07/28/24 Unknown magnesium 250 mg tablet 250 mg PO DAILY 07/24/24 07/28/24 Unknown multivitamin 1 tab PO DAILY 07/24/24 07/28/24 Unknown omega 1-dem-cxv-fish oil 1,000 mg 1 cap PO DAILY 07/24/24 07/28/24 Unknown (120 mg-180 mg) capsule (Fish Oil) omega-3 240 bt-nua-thf-cod liver 1 cap PO DAILY 07/24/24 07/28/24 Unknown oil 1,000 mg-vit A-vit D3 capsule (cod liver oil) potassium 99 mg tablet 99 mg PO DAILY 07/24/24 07/28/24 Unknown vitamin A-vitamin C-vitamin E 1 tab PO DAILY 07/24/24 07/28/24 Unknown vitamin E 200 unit capsule 180 mg PO DAILY 07/24/24 07/28/24 Unknown cefdinir 300 mg capsule 300 mg PO BID 10 days #20 caps 07/27/24 07/28/24 Unknown tamsulosin 0.4 mg capsule 0.4 mg PO DAILY #30 caps 07/28/24 07/28/24 Unknown Active Medications Generic Name Dose Route Start Last Admin Trade Name Freq PRN Reason Stop Dose Admin Acetaminophen 650 mg 07/29/24 00:31 07/29/24 12:43 Acetaminophen 325 Mg Tab PO 08/28/24 00:30 650 mg Q4H PRN Administration pain/fever Folic Acid 800 mcg 07/29/24 09:00 07/30/24 07:42 Folic Acid 400 Mcg Tab PO 08/28/24 08:59 800 mcg DAILY MAXIMILIANO Administration Hydromorphone HCl 0.5 mg 07/29/24 09:48 07/29/24 15:08 Hydromorphone Inj 0.5 Mg/0.5 Ml Syr IV 08/12/24 09:47 0.5 mg Q4H PRN Administration Pain Scale 4,5,6 Ceftriaxone Sodium 2,000 mg in 50 mls @ 100 mls/hr 07/29/24 01:15 07/30/24 02:40 Rocephin IV 08/03/24 01:14 Infused Q24H MAXIMILIANO Infusion Lisinopril 10 mg 07/29/24 09:00 07/30/24 07:42 Lisinopril 10 Mg Tab PO 08/28/24 08:59 10 mg QAM MAXIMILIANO Administration Magnesium Oxide 400 mg 07/29/24 09:00 07/30/24 07:43 Magnesium Oxide 400 Mg Tab PO 08/28/24 08:59 400 mg DAILY MAXIMILIANO Administration Multivitamins 1 tab 07/29/24 09:00 07/30/24 07:43 Multivitamin Tab PO 08/28/24 08:59 Not Given DAILY MAXIMILIANO Phenazopyridine HCl 200 mg 07/29/24 04:38 07/30/24 07:42 Phenazopyridine Hcl 200 Mg Tab PO 08/28/24 04:37 200 mg TID PRN Administration Bladder pain Tamsulosin HCl 0.4 mg 07/29/24 09:00 07/30/24 07:42 Tamsulosin Hcl 0.4 Mg Cap PO 08/28/24 08:59 0.4 mg DAILY MAXIMILIANO Administration Vitamin D 25 mcg 07/29/24 09:00 07/30/24 07:42 Cholecalciferol 25 Mcg (1000 Units) Tab PO 08/28/24 08:59 25 mcg DAILY MAXIMILIANO Administration NPO Date Last Intake of Fluids: 07/30/24 Time Last Intake of Fluids: 07:30 Last Intake of Fluids Comment: sip with medications Date Last Intake of Solids: 07/29/24 Time Last Intake of Solids: 18:00 Past Medical History Medical History Encounter for pre-operative examination Lumbar herniated disc Painless hematuria "it comes and goes" History of hypothyroidism per chart, pt. states [facility] [place] and [facility]'s ok" Hypertension History of diverticulitis Left kidney mass no biopsy Past Family History Family History Denies family history of Ovarian cancer Prostate cancer Myocardial infarction Breast cancer Colorectal cancer Past Surgical History Surgical History History of open reduction and internal fixation (ORIF) procedure (1974) left arm History of partial colectomy (1998) 6 inches removed due to diverticulitis History of appendectomy Hx of cholecystectomy (~1998) Social History Smoking Status: Never smoker Do You Dip or Chew Tobacco: No Hx Alcohol Use: No Hx Substance Use: No substance use type: does not use Physical Exam Vital Signs Last Vital Signs Temp 97.7 F 07/30/24 07:47 Pulse 81 07/30/24 07:47 Resp 20 07/30/24 07:47 BP 128/78 07/30/24 07:47 Pulse Ox 94 07/30/24 07:47 O2 Del Method Room Air 07/30/24 07:47 Testing Laboratory Results 07/29/24 12:06 07/29/24 12:06 Urine Color Yellow 07/29/24 Unknown Urine Appearance Clear (Clear) 07/29/24 Unknown Urine pH 5.5 (4.5-7.5) 07/29/24 Unknown Ur Specific [place] 1.005 (1.000-1.030) 07/29/24 Unknown Urine Protein Negative (Negative) 07/29/24 Unknown Urine Glucose (UA) Negative (Negative) 07/29/24 Unknown Urine Ketones Negative (Negative) 07/29/24 Unknown Urine Nitrite Negative (Negative) 07/29/24 Unknown Ur Leukocyte Esterase Negative (Negative) 07/29/24 Unknown Urine WBC (Auto) 0-5 /hpf (0-5) 07/29/24 Unknown Urine RBC (Auto) >20 /hpf (0-2) H 07/29/24 Unknown U Hyaline Cast (Auto) 0-2 /lpf (0-2) 07/29/24 Unknown U Epithel Cells (Auto) 0-2 /hpf (0-2) 07/29/24 Unknown Urine Bacteria (Auto) None Seen (None Seen) 07/29/24 Unknown Blood Type O Positive 07/28/24 20:58 Antibody Screen NEGATIVE 07/28/24 20:58 07/30/24 08:35 POC Glucose 105 H Electrocardiogram Date: 07/23/24 Findings: + NSR @
[2024-07-30] MEDS ORDERED: ePHEDrine sulfate 50 MG/ML AMP IV PRN (10:52)
[2024-07-30] MEDS ORDERED: ONDANSETRON INJ 2 MG/ML 2 ML VIAL IV PRN (10:52)
[2024-07-30] MEDS ORDERED: ATROPINE SULFATE 0.1 MG/ML 10ML SYR IV PRN (10:52)
[2024-07-30] MEDS: LACTATED RINGER'S 1,000 ML IV SCH (10:54)
[2024-07-30] MEDS: SURGICEL ABSORB HEMOSTAT 2IN X 14IN TOP ONE (12:30)
[2024-07-30] MEDS: BUPIVACAINE LIPOSOME 1.3% 133 MG/10 ML VIAL ONE (13:14)
[2024-07-30] MEDS: BUPIVACAINE LIPOSOME 1.3% 266 MG/20 ML VIAL ONE (13:28)
[2024-07-30] MEDS: BUPIVACAINE 0.5 % 5 MG/1 ML MPF 30ML VIAL ONE (13:28)
[2024-07-30] MEDS: fentaNYL citrate PF 100 MCG/2 ML VIAL IV PRN (13:53)
--- NOTE | 2024-07-30 13:54 | Operative Report ---
PG Post Operative Report Pre & Post Diagnosis Operation Date: 07/30/24 10:50 Pre-Op Diagnosis: Left kidney mass Post-Op Diagnosis: Left kidney mass I identified the patient and participated in the time-out.: Yes Procedure Operation Date: 07/30/24 10:50 Actual Procedures p Hand Assisted Laparoscopic Nephrectomy - Left, Bladder Irrigation(Not Applicable) - Kemal Kc MD Surgeon Kemal Kc MD Linux Network Administrator Eunice Dejesus Estimated Blood Loss 150 Findings Consistent with Post-Op Diagnosis Specimens Left kidney and perinephric fat Description of Procedure Patient was identified in the preoperative holding area appropriate informed consents reviewed and completed. He was transported to the operating suite and received appropriate preoperative antibiotics. He was placed in a [id number] left side up lateral decubitus position. A Breen catheter was inserted. He was padded and braced appropriately and the bed was flexed. Following sterile prep and drape I marked incisions. He has a paramedian incision from a prior hemicolectomy. His abdomen is large enough that I was able to plan for a Hogan style incision lateral to his prior incision. I incised to the skin and carried this through the external bleak internal bleak and transversalis. Is a piercing of the peritoneum it was clear that he was significantly scarred. There were adhesions that were walling off this area and it took some time to gradually work our way through these adhesions to free up the intraperitoneal space and allow access to the remainder of the abdomen. Approximately 30 minutes was spent on this portion of the case. I used a GelPort then I was able to insufflate through it and inspect the abdomen. There were 2 areas under the costal margin lateral to the rectus border where I anticipated placement of a 12 mm port. These were placed onto my hand. I ultimately placed a third port closer to the midline in the same region of the upper abdomen. Then began the laparoscopic portion of the case and I dissected around the lateral border of the kidney. Of note, given his prior hemicolectomy the colon was medialized and not visualized over the kidney. I did incise the peritoneum along the upper border of the kidney and worked into the corner between the spleen and kidney to free the upper lateral edge of the kidney. Dissection posterior to the kidney was par easier than dissection anterior. I used this plane first before turning to the lower pole of the kidney. At that area I was able to identify the ureter and gonadal vein. Given his active hematuria I elected to take the ureter early to prevent further clot. This was incised with the harmonic scalpel. I then attempted to traced the structures up to the hilum. I dissected posterior to the hilar structures immediately removed mobilized all tissue away from the anterior surface of the vein and artery. I was able to palpate a pulse headed towards the kidney. I created a window superior to it and I gradually dissected to the inferior edge of the hilar structures. At that time I was able to pass a staple load across the hilum and take it. Ultimately 3 staple loads were used in this area, the first simply took the vessels the second took some fat around them and the third and area anterior and superior between the adrenal and the kidney itself. We then used a harmonic scalpel to continue dissection around the remaining superior attachments. The very lower aspect of Gerota's fascia was ultimately dissected with a harmonic scalpel and freed. This entirely freed the specimen. Of note, this is a very large specimen with an almost 10 cm mass in the large kidney as well as a substantial amount of perinephric fat. Mobilization of the kidney was quite limited. I attempted to extract this through the HandPort but it would not fit. I had to extend my incision by approximately 4 additional centimeters to accommodate extraction. Specimen was then passed off the table for pathology. We inspected for hemostasis which was excellent. Attempted to lateralize structures that had previously been medialized by the mass and kidney. Will begin closure. We reapproximated the transversalis with a running 0 Vicryl. I then reapproximated the internal oblique with a 0 PDS followed by the external bleak with 0 Vicryl. All layers were infiltrated with Exparel after each was closed. Daphne's fascia was reapproximated with 0 Vicryl. The 12 mm general assistant ports were all closed with 0 Vicryl on a UR 6 needle followed by closure of the skin with a 4-0 Monocryl. A 4-0 Monocryl was used to close the lower extraction site as well. Dermabond was placed over all incisions. He was reversed of anesthesia and taken to the recovery room in stable condition. Eunice Dejesus assisted throughout the case from incision to closure. I attest to the content of the Intraoperative Record and any orders documented therein. Any exceptions are noted below.
--- NOTE | 2024-07-30 14:36 | Anesthesiology Progress Note ---
Date of Service July 30, 2024 Anesthesia Post Procedure Vital Signs Vital Signs: Temp Pulse Pulse Resp BP BP Pulse Ox 07/30/24 14:25 91 H 16 121/73 95 07/30/24 14:15 90 14 116/77 94 07/30/24 14:05 85 16 122/71 95 07/30/24 13:55 79 18 122/74 96 07/30/24 13:47 97.3 F L 87 20 118/71 97 07/30/24 10:40 98.4 F 85 20 139/88 94 07/30/24 07:47 97.7 F 81 20 128/78 94 07/30/24 07:19 98.1 F 80 18 128/73 93 07/29/24 19:59 98.6 F 78 16 117/70 94 07/29/24 15:37 97.9 F 74 16 103/61 92 O2 Del Method O2 Flow Rate 07/30/24 14:25 Nasal Cannula 2 07/30/24 14:15 Nasal Cannula 2 07/30/24 14:05 Oxymask 3 07/30/24 13:55 Oxymask 6 07/30/24 13:47 Oxymask 6 07/30/24 10:40 Room Air 07/30/24 07:47 Room Air 07/30/24 07:19 Room Air 07/29/24 19:59 Room Air 07/29/24 15:37 Room Air Pain Intensity Penis: Pain Intensity: 8 Abdomen: Pain Intensity: 8 Transfer of Care Handoff Completed per policy Notes Mental Status: alert / awake / arousable and participated in evaluation Patient Amnestic to Procedure: Yes Nausea / Vomiting: adequately controlled Pain: adequately controlled Airway Patency, RR, SpO2: stable & adequate BP & HR: stable & adequate Hydration State: stable & adequate Anesthetic Complications: no major complications apparent and Pt Satisfied with anesthetic care
[2024-07-30] MEDS: SODIUM CHLORIDE 0.9% 1,000 ML IV SCH (15:28)
[2024-07-30] MEDS: POLYETHYLENE (MIRALAX) 17 GM PACK PO PRN (18:11)
[2024-07-30] MEDS: oxyCODONE HCL IR 5 MG TAB (IMMEDIATE RELEASE) PO PRN (18:11)
[2024-07-30] MEDS ORDERED: HYDROmorphone INJ 1 MG/ML SYRINGE IV PRN (19:29)
[2024-07-30] MEDS: HEPARIN SOD 5,000 UNIT/0.5 ML VIAL SQ SCH (21:12)
--- NOTE | 2024-07-31 08:04 | Urology Progress Note ---
Date of Service July 31, 2024 Assessment & Plan (1) Left kidney mass: Plan Left renal mass suspected renal cell carcinoma status post left radical nephrectomy Recovery is very much on pace this morning Await labs Breen out Ambulate Advance diet Admission and Anticipated Discharge Date Admission Date: July 30, 2024 Subjective Doing extremely well this morning Pain controlled Ambulatory Urine clear Physical Exam Physical Exam: Incisions appropriate Abdomen soft, nontender, not particularly distended Urine clear Results & Data Vital Signs (Past 12 Hours) Vital Signs Temp Pulse Resp BP BP Pulse Ox O2 Del Method 07/31/24 07:35 36.7 C 90 16 117/57 L 95 Room Air 07/31/24 00:09 36.6 C 88 18 123/75 93 Room Air PG Care Time/CCT Total # of Minutes Spent Total Time Spent with Patient: Total time spent is greater than 50% in coordination of care (as documented) at patient's floor/unit and/or counseling patient: Coding Level of Care Code None Diagnoses Left kidney mass N28.89
[2024-07-31 08:56] LABS: Basophils # (auto) 0.03 K/uL (0.00-0.20); Basophils % (auto) 0.2 %; Hemoglobin 10.1 g/dl (14.0-18.0); Immature Granulocytes # (auto) 0.28 K/uL (0.01-0.20); Immature Granulocytes % (auto) 1.7 %; Lymphocytes # (auto) 1.36 K/uL (1.20-3.40); Lymphocytes % (auto) 8.3 %; Mean Corpuscular Hemoglobin 29.8 pg (25.0-34.0); Mean Corpuscular Hgb Conc 31.6 g/dL (32.0-36.0); Mean Corpuscular Volume 94.4 fL (80.0-100.0); Mean Platelet Volume 9.8 fL (9.4-12.4); Monocytes # (auto) 1.73 K/uL (0.11-0.59); Monocytes % (auto) 10.6 %; Neutrophils # (auto) 12.97 K/uL (1.40-6.50); Neutrophils % (auto) 79.2 %; Platelet Count 233 K/uL (130-400); RDW Coefficient of Variation 13.4 % (11.5-14.5); RDW Standard Deviation 46.1 fL (36.4-46.3); Red Blood Count 3.39 M/uL (4.70-6.10); White Blood Count 16.37 K/ul (4.8-10.8)
[2024-07-31 09:20] LABS: BUN Creatinine Ratio 14.4 (10-20); Calcium 8.5 mg/dl (8.6-10.3); Creatinine Clr Calc Pharmacy 40.5 ml/min
--- NOTE | 2024-07-31 13:34 | XRay Report ---
XR chest 1V portable CLINICAL HISTORY: eval for pnx COMPARISON STUDY: 07/23/2024 FINDINGS: Stable mild cardiomegaly without pulmonary vascular congestion. Inspiration is shallow. No effusion, consolidation, or pneumothorax. IMPRESSION: Shallow inspiration with no acute findings seen. ACT 112: Negative or not required by law. Electronically signed by: Dmitri Figueroa M.D. 07/31/2024 1:33 PM
[2024-07-31] MEDS: ACETAMINOPHEN 500 MG TAB PO PRN (13:49)
[2024-07-31] MEDS: levoFLOXacin/D5W 500 MG/100 ML BAG IV STA (14:19)
--- NOTE | 2024-07-31 18:48 | Hospitalist Progress Note ---
Date of Service July 31, 2024 Assessment & Plan (1) Gross hematuria: (2) Obstructed Breen catheter: (3) Acute urinary retention: (4) Left kidney mass: Plan Patient is a 68 yo w/ a PMHx of l. kidney mass, Hx of diverticulitis, Hx of hypothyroidism (no longer on thyroid meds), lumbar herniated disc, HTN, Hx of appendectomy, Hx of partial colectomy, Hx of cholecystectomy, presenting with suprapubic pain, concern for catheter complication involving urinary obstruction followed by gross hematuria. Patient had a Breen catheter placed 07/27 for urinary obstruction secondary to gross hematuria from a left renal mass. 1) Urinary obstruction/Hematuria/L. Renal mass - continue CBI (continuous bladder irrigation) - hemodynamically stable; labs stable: - Urology now s/p radical left nephrectomy 07/30/24 - post op fever, culturedm blood and urine check cxr no pnx or sig atlectasis , changed antibiotics to levaquin Chronic stable conditions #HTN - hold lisinopril, 10 mg follow bp stable #Preventive Health - on a variety of vitamins, supplements - continued multivitamin, Mg, Code status: Full code VTE Prophylaxis: SCD's (to the knee) Admission and Anticipated Discharge Date Admission Date: July 30, 2024 Subjective pt developed post op fever and tachycardia some pain generally does not feel well dark urine but not grossly bloody Physical Exam Physical Exam: pt is with some pain in abdomen but not acute abdomen has diminshed breath sounds at the bases L>R Results & Data Results & Data Vital Signs (Past 12 Hours) Vital Signs Temp Pulse Resp BP BP Pulse Ox O2 Del Method 07/31/24 14:06 100.6 F H 114 H 16 121/61 92 Room Air 07/31/24 12:56 101.5 F H 114 H 18 148/78 H 90 Room Air 07/31/24 07:35 98.1 F 90 16 117/57 L 95 Room Air Laboratory Results review cbc review chemistry PG Care Time/CCT Total # of Minutes Spent Total Time Spent with Patient: Total time spent is greater than 50% in coordination of care (as documented) at patient's floor/unit and/or counseling patient: Coding Level of Care Code 88510 SUB INP/OBS CARE 3/50MIN Diagnoses Gross hematuria R31.0 Obstructed Breen catheter T83.091A Acute urinary retention R33.8 Left kidney mass N28.89
[2024-07-31] MEDS: LACTATED RINGER'S 1,000 ML IV SCH (19:43)
[2024-08-01] MEDS: ONDANSETRON INJ 2 MG/ML 2 ML VIAL IV PRN (06:36)
[2024-08-01 08:35] LABS: Hematocrit (blood only) 29.2 % (42.0-52.0); Hemoglobin 9.2 g/dl (14.0-18.0); Mean Corpuscular Hemoglobin 29.4 pg (25.0-34.0); Mean Corpuscular Hgb Conc 31.5 g/dL (32.0-36.0); Mean Corpuscular Volume 93.3 fL (80.0-100.0); Platelet Count 208 K/uL (130-400); RDW Coefficient of Variation 13.5 % (11.5-14.5); RDW Standard Deviation 45.7 fL (36.4-46.3); Red Blood Count 3.13 M/uL (4.70-6.10); White Blood Count 21.62 K/ul (4.8-10.8)
[2024-08-01 09:02] LABS: BUN Creatinine Ratio 12.9 (10-20); Calcium 8.4 mg/dl (8.6-10.3); Creatinine Clr Calc Pharmacy 33.7 ml/min; Potassium 4.1 mmol/L (3.5-5.1)
--- NOTE | 2024-08-01 09:55 | Urology Progress Note ---
Date of Service August 01, 2024 Assessment & Plan (1) Left kidney mass: Plan: - Patient POD#2 s/p left nephrectomy for suspected renal malignancy - Developed fever and tachycardia yesterday - CXR showed no significant atelectasis or consolidation - Urine and blood cultures obtained and pending - Antibiotics were switched to Levofloxacin - Subjectively feeling better today - Currently afebrile, mild tachycardia, normotensive - Labs reviewedcreatinine 2.09, WBC 21.62, hemoglobin 9.2 - Reports some incisional discomfortcontinue pain management as needed - Incisions appropriate - Will restart IV fluids and return to clear liquid diet for now - Encouraged OOB ambulation and incentive spirometer - Patient voiding after catheter removal - Will continue to monitor closely with primary team - Case discussed with Dr. Kc Admission and Anticipated Discharge Date Admission Date: July 30, 2024 Subjective Patient seen and examined at bedside this morning. He is awake and sitting up at the edge of the bed, family in the room. Febrile yesterday around 1300, Tmax 38.6. Denies fever or chills at present. Reports he is bringing up some mucus, which is not new for him. Reports some discomfort near incisions and abdominal pressure. Reports "rumblings" but not passing gas yet. Low appetite. Some nausea this am, which resolved after Zofran. Voiding spontaneously. Reports no longer having hematuria. Review of Systems Constitutional: as per Subjective / HPI Genitourinary: + as per Subjective / HPI Physical Exam Constitutional: no acute distress Respiratory: no respiratory distress and no labored breathing Gastrointestinal (Abdomen): Inspection/Auscultation: + abdomen distended Percussion/Palpation: abdomen soft appropriately tender near incisions Musculoskeletal: Head/Neck/Chest: normocephalic Neurologic: moves all extremities and awake Psychiatric: Orientation: alert and oriented x 3 Results & Data Vital Signs (Past 12 Hours) Vital Signs Temp Pulse Resp BP BP Pulse Ox O2 Del Method 08/01/24 08:10 37.0 C 106 H 18 116/70 90 Room Air 08/01/24 05:48 37.6 C H 105 H 16 122/57 L 91 Room Air PG Care Time/CCT Total # of Minutes Spent Total Time Spent with Patient: Total time spent is greater than 50% in coordination of care (as documented) at patient's floor/unit and/or counseling patient: Coding Level of Care Code None Diagnoses Left kidney mass N28.89
[2024-08-01] MEDS: levoFLOXacin/D5W 250 MG/50 ML BAG IV SCH (12:07)
[2024-08-01] MEDS: SODIUM CHLORIDE 0.9% 1,000 ML IV SCH (12:07)
[2024-08-01] MEDS: SENNA 8.6 MG TAB PO SCH (14:11)
--- NOTE | 2024-08-01 17:40 | Hospitalist Progress Note ---
Date of Service August 01, 2024 Assessment & Plan (1) Gross hematuria: (2) Obstructed Breen catheter: (3) Acute urinary retention: (4) Left kidney mass: (5) Postoperative fever: (6) Constipation: Plan Patient is a 68 yo w/ a PMHx of l. kidney mass, Hx of diverticulitis, Hx of hypo thyroidism (no longer on thyroid meds), lumbar herniated disc, HTN, Hx of appendectomy, Hx of partial colectomy, Hx of cholecystectomy, presenting with suprapubic pain, concern for catheter complication involving urinary obstruction followed by gross hematuria. Patient had a Breen catheter placed 07/27 for urinary obstruction secondary to gross hematuria from a left renal mass. Urinary obstruction/Hematuria/L. Renal mass - Passing urine following Breen catheter removal - hemodynamically stable; labs creatinine increasing as expected following renal mass removal - s/p radical left nephrectomy 07/30/[address] Kc Postoperative fever - Blood and urine cultures negative at 24 hours, antibiotics can likely be discontinued but will touch base with urology tomorrow if they wish to wait for blood cultures to be negative at 48 hours - Surgical wound appears clean dry and intact - No significant respiratory, gastrointestinal or urinary symptoms to suggest source of infection other than constipation as below Constipation Last bowel movement July 27 No significant abdominal pain, nausea or vomiting to suggest small bowel obstruction, abdomen appears distended on exam. Add senna to MiraLAX Chronic stable conditions #HTN - hold lisinopril, 10 mg follow bp stable #Preventive Health - on a variety of vitamins, supplements - continued multivitamin, Mg, Code status: Full code VTE Prophylaxis: SCDs, heparin 5000 units SQ BID Diet - clear liquids Disposition - continued admission on med/surg Admission and Anticipated Discharge Date Admission Date: July 30, 2024 Subjective Feels improved compared to yesterday. Mild pain around surgical incision site but no on the right side of his abdomen. No he had a bowel movement since the . No nausea or vomiting. No respiratory or urinary symptoms. Breen catheter has been removed. Review of Systems Review of Systems: All systems reviewed & are unremarkable except as noted in HPI & below Physical Exam Constitutional: WD/WN, vitals as above Respiratory: normal respiratory effort, lungs clear to auscultation Cardiovascular: RRR, no murmur, no edema Gastrointestinal (Abdomen): Inspection/Auscultation: + abdomen distended Percussion/Palpation: + abdomen tender (Around surgical incision sites but not o n the right side of his abdomen) and abdomen soft; no guarding and abdomen not rigid Skin: no rashes, warm and dry (No areas of cellulitis seen) Neurologic: moves all extremities and awake; not confused Results & Data Results & Data Vital Signs (Past 12 Hours) Vital Signs Temp Pulse Resp BP BP Pulse Ox O2 Del Method 08/01/24 15:00 Room Air 08/01/24 14:06 37.1 C 108 H 18 124/68 94 Room Air 08/01/24 11:00 37.7 C H 107 H 20 119/66 95 Room Air 08/01/24 08:10 37.0 C 106 H 18 116/70 90 Room Air 08/01/24 08:00 Room Air 08/01/24 05:48 37.6 C H 105 H 16 122/57 L 91 Room Air PG Care Time/CCT Total # of Minutes Spent Total Time Spent with Patient: Total time spent is greater than 50% in coordination of care (as documented) at patient's floor/unit and/or counseling patient: Coding Level of Care Code 01124 SUB INP/OBS CARE 2/35MIN Diagnoses Gross hematuria R31.0 Obstructed Breen catheter T83.091A Acute urinary retention R33.8 Left kidney mass N28.89 Postoperative fever R50.82 Constipation K59.00
[2024-08-01] MEDS: MELATONIN 3 MG TAB PO PRN (20:05)
[2024-08-01] MEDS: ACETAMINOPHEN 500 MG TAB PO PRN (20:46)
[2024-08-02 08:08] LABS: Hematocrit (blood only) 30.1 % (42.0-52.0); Hemoglobin 9.5 g/dl (14.0-18.0); Mean Corpuscular Hemoglobin 29.7 pg (25.0-34.0); Mean Corpuscular Hgb Conc 31.6 g/dL (32.0-36.0); Mean Corpuscular Volume 94.1 fL (80.0-100.0); Mean Platelet Volume 10.5 fL (9.4-12.4); Platelet Count 224 K/uL (130-400); RDW Coefficient of Variation 13.1 % (11.5-14.5); RDW Standard Deviation 45.2 fL (36.4-46.3); White Blood Count 26.06 K/ul (4.8-10.8)
[2024-08-02 08:22] LABS: Calcium 8.5 mg/dl (8.6-10.3); Creatinine Clr Calc Pharmacy 32.8 ml/min; Potassium 3.7 mmol/L (3.5-5.1)
[2024-08-02 08:36] LABS: Basophils # (auto) 0.05 K/uL (0.00-0.20); Basophils % (auto) 0.2 %; Eosinophils # (auto) 0.01 K/uL (0.00-0.50); Immature Granulocytes # (auto) 0.31 K/uL (0.01-0.20); Immature Granulocytes % (auto) 1.2 %; Lymphocytes # (auto) 1.19 K/uL (1.20-3.40); Lymphocytes % (auto) 4.6 %; Monocytes # (auto) 3.24 K/uL (0.11-0.59); Monocytes % (auto) 12.4 %; Neutrophils # (auto) 21.26 K/uL (1.40-6.50); Neutrophils % (auto) 81.6 %
[2024-08-02 08:41] VITALS: RESP 18
--- NOTE | 2024-08-02 08:42 | Urology Progress Note ---
Date of Service August 02, 2024 Assessment & Plan (1) Constipation: (2) Left kidney mass: Plan Postop day #3 status post left radical nephrectomy for a very large renal mass with suspected invasion of the collecting system Recovery has been slightly slow, however I think the biggest issue here is just awaiting bowel function I suspect that once he starts open his bowels we will see a drop in his white blood cell count and improvement in his overall status He had some low-grade temperatures but does not have any clear signs of infection Hemoglobin stable Creatinine has risen slightly since surgery I think a portion of this is artificial secondary to the bowel issues on fluid shifting Dulcolax suppository this morning Continue ambulation He does not have enough distention or symptoms to justify NG tube, etc. at this point;hold on abdominal x-ray for the moment as I do not feel this will likely exchange floor manager Admission and Anticipated Discharge Date Admission Date: July 30, 2024 Subjective Continues to have low-grade temperatures White count remains elevated at 26 Creatinine elevated 2.1 Subjectively actually seems to be improving Reports that he does not have any significant pain He has not yet passed flatus or had a bowel movement Is not nauseated Has been ambulatory He denies any cough, shortness of breath, new discomfort Physical Exam Physical Exam: Moderately distended abdomen Incisions are all appropriate Urine is clear Comfortable appearing Results & Data Vital Signs (Past 12 Hours) Vital Signs Temp 08/01/24 22:18 37.9 C H PG Care Time/CCT Total # of Minutes Spent Total Time Spent with Patient: Total time spent is greater than 50% in coordination of care (as documented) at patient's floor/unit and/or counseling patient: Coding Level of Care Code None Diagnoses Constipation K59.00 Left kidney mass N28.89
[2024-08-02] MEDS: bisacodyL 10 MG SUPP PR STA (11:58)
--- NOTE | 2024-08-02 13:25 | XRay Report ---
KUB HISTORY: nausea, abdominal pain, no BM, ?SBO COMPARISON STUDY: 07/21/2024 FINDINGS: Stable right upper quadrant surgical clips. There is mild diffuse gaseous distention of the colon and mild gaseous distention of multiple small bowel loops, most prominent at the left upper qu adrant measuring 4 cm diameter. No gross free air seen. IMPRESSION: Mild bowel distention suggests ileus. ACT 112: Negative or not required by law. The above report was generated using voice recognition software. It may contain grammatical, syntax o r spelling errors. Electronically signed by: Dmitri Figueroa M.D. 08/02/2024 1:24 PM
--- NOTE | 2024-08-02 19:14 | Hospitalist Progress Note ---
Date of Service August 02, 2024 Assessment & Plan (1) Gross hematuria: (2) Obstructed Breen catheter: (3) Acute urinary retention: (4) Left kidney mass: (5) Postoperative fever: (6) Constipation: Plan Patient is a 68 yo w/ a PMHx of l. kidney mass, Hx of diverticulitis, Hx of hypo thyroidism (no longer on thyroid meds), lumbar herniated disc, HTN, Hx of appendectomy, Hx of partial colectomy, Hx of cholecystectomy, presenting with suprapubic pain, concern for catheter complication involving urinary obstruction followed by gross hematuria. Patient had a Breen catheter placed 07/27 for urinary obstruction secondary to gross hematuria from a left renal mass. Urinary obstruction/Hematuria/L. Renal mass - Passing urine following Breen catheter removal - hemodynamically stable; labs creatinine increasing as expected following renal mass removal - s/p radical left nephrectomy 07/30/[address] Kc Postoperative fever - Blood and urine cultures negative at 48 hours, discussed discontinuation of Levaquin with urology and agreed this can be stopped - Surgical wound appears clean dry and intact - No significant respiratory, gastrointestinal or urinary symptoms to suggest source of infection other than constipation as below Constipation Last bowel movement July 27 No significant abdominal pain, nausea or vomiting to suggest small bowel obstruction, abdomen appears distended on exam. Added senna to MiraLAX Bisacodyl suppository Chronic stable conditions #HTN - hold lisinopril, 10 mg follow bp stable #Preventive Health - on a variety of vitamins, supplements - continued multivitamin, Mg, Code status: Full code VTE Prophylaxis: SCDs, heparin 5000 units SQ BID Diet - clear liquids Disposition - continued admission on med/surg Admission and Anticipated Discharge Date Admission Date: July 30, 2024 Subjective Not yet had a BM int he morning. When revisited in afternoon patient bad BM with bisacodyl suppository. T38.4 today - patient did not feel this. Physical Exam Constitutional: WD/WN, vitals as above Respiratory: normal respiratory effort, lungs clear to auscultation Cardiovascular: RRR, no murmur, no edema Gastrointestinal (Abdomen): Inspection/Auscultation: + abdomen distended Percussion/Palpation: + abdomen tender (Around surgical incision sites but not on the right side of his abdomen) and abdomen soft; no guarding and abdomen not rigid Skin: no rashes, warm and dry (No areas of cellulitis seen) Neurologic: moves all extremities and awake; not confused Results & Data Results & Data Vital Signs (Past 12 Hours) Vital Signs Temp Pulse Resp BP BP Pulse Ox O2 Del Method 08/02/24 15:18 37.6 C H 94 H 18 110/66 93 Room Air 08/02/24 12:03 37.2 C 08/02/24 10:45 38.4 C H 08/02/24 10:12 37 C 105 H 18 142/78 H 92 Room Air 08/02/24 09:00 36.8 C 08/02/24 08:40 37.2 C 102 H 18 129/79 92 Room Air 08/02/24 08:15 Room Air PG Care Time/CCT Total # of Minutes Spent Total Time Spent with Patient: Total time spent is greater than 50% in coordination of care (as documented) at patient's floor/unit and/or counseling patient: Coding Level of Care Code 47069 SUB INP/OBS CARE 2/35MIN Diagnoses Gross hematuria R31.0 Obstructed Breen catheter T83.091A Acute urinary retention R33.8 Left kidney mass N28.89 Postoperative fever R50.82 Constipation K59.00
[2024-08-03 07:14] LABS: Basophils # (auto) 0.02 K/uL (0.00-0.20); Basophils % (auto) 0.1 %; Eosinophils # (auto) 0.03 K/uL (0.00-0.50); Eosinophils % (auto) 0.2 %; Hematocrit (blood only) 26.1 % (42.0-52.0); Hemoglobin 8.4 g/dl (14.0-18.0); Immature Granulocytes # (auto) 0.19 K/uL (0.01-0.20); Lymphocytes # (auto) 0.91 K/uL (1.20-3.40); Lymphocytes % (auto) 4.7 %; Mean Corpuscular Hemoglobin 29.9 pg (25.0-34.0); Mean Corpuscular Hgb Conc 32.2 g/dL (32.0-36.0); Mean Corpuscular Volume 92.9 fL (80.0-100.0); Mean Platelet Volume 10.3 fL (9.4-12.4); Monocytes # (auto) 2.74 K/uL (0.11-0.59); Monocytes % (auto) 14.1 %; Neutrophils # (auto) 15.53 K/uL (1.40-6.50); Neutrophils % (auto) 79.9 %; Platelet Count 207 K/uL (130-400); RDW Coefficient of Variation 13.3 % (11.5-14.5); RDW Standard Deviation 45.5 fL (36.4-46.3); Red Blood Count 2.81 M/uL (4.70-6.10); White Blood Count 19.42 K/ul (4.8-10.8)
[2024-08-03 07:40] LABS: BUN Creatinine Ratio 14.6 (10-20); Calcium 7.9 mg/dl (8.6-10.3); Creatinine Clr Calc Pharmacy 33.1 ml/min; Potassium 3.1 mmol/L (3.5-5.1)
[2024-08-03 07:49] VITALS: BP 113/68; PULSE 82; TEMP 98.8; O2SAT 92
--- NOTE | 2024-08-03 09:01 | Urology Progress Note ---
Date of Service August 03, 2024 Assessment & Plan (1) Clear cell carcinoma of left kidney: Plan Postop status post left radical nephrectomy for pT3 clear-cell renal cell carcinoma Recovery has turned a corner over the past 24 to 48 hours His bowel function has resumed He is moving his bowels relatively frequently and is somewhat loose Pain is well-controlled I believe he is stable from a lab standpoint and ready for discharge home I will plan for outpatient follow-up in 1-1/2 weeks with lab work at that time, no further workup with a hemoglobin required at this time given his stability Admission and Anticipated Discharge Date Admission Date: July 30, 2024 Subjective Substantial bowel function overnight He is feeling much better He has no tachycardia He is hemodynamically stable and afebrile His white blood cell count is trending down Although his hemoglobin is slightly lower I do not have a lot of concern regarding this His creatinine is remaining stable at 2.1, anticipate this may improve slightly over the next several weeks He is very anxious to go home Physical Exam Physical Exam: Incision appropriate Abdomen soft, nontender Results & Data Vital Signs (Past 12 Hours) Vital Signs Temp Pulse Resp BP Pulse Ox O2 Del Method 08/03/24 07:49 37.1 C 82 18 113/68 92 Room Air PG Care Time/CCT Total # of Minutes Spent Total Time Spent with Patient: Total time spent is greater than 50% in coordination of care (as documented) at patient's floor/unit and/or counseling patient: Coding Level of Care Code 07205 SUB INP/OBS CARE 2/35MIN Diagnoses Clear cell carcinoma of left kidney C64.2
--- NOTE | 2024-08-03 09:41 | Discharge Summary ---
Discharge Summary Date of Service August 03, 2024 Principal Dx & Hospital Course #1 = Principal Diagnosis (1) Clear cell carcinoma of left kidney: (2) Gross hematuria: (3) Obstructed Breen catheter: (4) Acute urinary retention: (5) Left kidney mass: (6) Postoperative fever: (7) Constipation: Cyndee Torres Maurice is a 68 year old male admitted to [facility] from July 28 - 2024 due to gross hematuria and suprapubic pain. He was diagnosed with a urinary obstruction with left renal mass (suspected kidney tumor, with subsequent pathology showing clear cell renal cell carcinoma). Urine culture grew Corynbacterium (suspected contamination). He underwent hand assisted laparoscopic nephrectomy on July 30. Post operative course was complicated by fever, increasing WBC and ileus. Once ileus was resolved, WBC is coming down and fever resolved. No post operative infection suspected but he was on Levofloxacin for a few days post operatively. He is now medically stable for discharge. No laxatives prescribed on discharge but advised to use MiraLAX as needed over the counter to aim for one BM daily. He successfully passed trial without catheter. Notes For Next Care Provider Follow up with your primary care physician for repeat labs (CBC and BMP) in approximately 1 week. Discharge labs values Cr 2.13 (stable post operative from nephrectomy), K 3.1 (suspect low as he was not getting his regular supplementation in hospital), Hemoglobin 8.4 (post operative anemia). Medication Changes From Visit Antibiotics discontinued - no infection on urine cultures Lisinopril discontinued due to low blood pressure and increased Cr Vitamin E discontinued as he does not have a deficiency in this on any reason to suspect he has Admission HPI Per Admitting Provider Patient is a 68 yo w/ a PMHx of l. kidney mass, Hx of diverticulitis, Hx of hypothyroidism (no longer on thyroid meds), lumbar herniated disc, HTN, Hx of appendectomy, Hx of partial colectomy, Hx of cholecystectomy, presenting with suprapubic pain, concern for catheter complication involving urinary obstruction followed by gross hematuria. Patient had a Breen catheter placed 07/27 for urinary obstruction secondary to gross hematuria from a left renal mass. He is scheduled for a left radical nephrectomy in 48 hours. He states that he has been drinking lots of water throughout the day today, but since 2 pm has only had about 100 cc of urine out in his leg bag. He states pressure has been relieved temporarily in his suprapubic region once the CBI was started. He had called the urology phone number and was referred to the emergency department given his symptoms due to concern for potential need for catheter exchange. Patient is not on any anticoagulation or antiplatelet therapy. Denies any fevers. He has been taking cefdinir as scheduled and took some tamsulosin tonight as well. Discharge Exam Constitutional WD/WN, vitals as above Gastrointestinal (Abdomen) Inspection/Auscultation: + abdomen distended (improved) Percussion/Palpation: + abdomen tender (Around surgical incision sites but not on the right side of his abdomen) and abdomen soft; no guarding and abdomen not rigid Discharge Plan Discharge Items Patient Disposition: Home - Self-Care Reason For Visit: URINARY OBSTRUCTION, HEMATURIA Discharge Diagnosis: clear cell renal cell carcinoma Activity: Per Instructions section Lifting: Gradually increase as tolerated and No more than 25 pounds Bathing Comment: You may shower now, please avoid the bath Sexual Activity: When tolerated Exercise/Sports: Wait until after follow-up appointment Driving/Machine Use: You may drive when off of pain meds Non-emergency contact: Urologist Call non-emergency contact if: you have any medication questions, your pain is concerning for you, you have a fever and your temperature is above 101.5 Follow-up/Referrals: Kemal Kc MD [Physician] - (THE OFFICE WILL CALL YOU WITH A FOLLOW UP APPT) Marito Zaman DO [Primary Care Provider] - 08/12/24 10:20 am Diet: Regular Addtl Attending Provider Instructions: Please continue your previous diet, take all medications as prescribed and keep all follow-ups as scheduled. Please call our office at [phone] with any questions, concerns or need to reschedule appointments for any reason. We are happy to assist you. Recovering at home: We recommend having someone with you for the first few days after surgery to help care for you. It is okay to shower tomorrow. Please avoid swimming, bathing or using hot tub until incisions are well healed. Avoid driving until you are not requiring pain medication any further. Walk at least a few times a day. Increase your distance, as you feel able. Stairs in your home are okay. Please avoid strenuous or sexual activity until your follow-up. We recommend using stool softener (i.e. Colace) to prevent constipation and straining, especially the first two weeks post operatively. Call [facility] at [phone] if you experience: Chest pain or trouble breathing (call [phone] or go to the hospital). Fever of 101F or higher Symptoms of infection at incision site, including redness or swelling, warmth, or bad-smelling drainage If you have catheter, and you notice: o Bloody urine or drainage that is dark red or has large clots (Please remember a small amount of blood is normal) o No drainage from the catheter for more than 6 hours o The catheter comes out of your bladder Pain that is not controlled with medicines Addtl Project Developer Provider Instructions: Medicine consult: Please follow up with your primary care physician for repeat labs (CBC and BMP) in approximately 1 week to check kidney function, potassium and hemoglobin. Discharge labs values Cr 2.13, K 3.1, Hemoglobin 8.4. No laxatives prescribed on discharge but use MiraLAX as needed over the counter to aim for one BM daily Pending Studies at Discharge: No Stand-Alone Forms: My [employer], Smoking Cessation Medications and DC Order Prescriptions: New tramadol 50 mg tablet 50 mg PO Q6H PRN (Reason: pain) Qty: 20 0RF Continued tamsulosin 0.4 mg capsule 0.4 mg PO DAILY Qty: 30 0RF multivitamin Tablet 1 tab PO DAILY Papaya Enzyme Tablet 1 tab PO DAILY Rx Instructions: administer with meals garlic 1,000 mg Capsule 1,000 mg PO DAILY potassium 99 mg Tablet 99 mg PO DAILY magnesium 250 mg Tablet 250 mg PO DAILY folic acid 800 mcg Tablet 0.8 mg PO DAILY coenzyme Q10 [Co Q-10] 100 mg Capsule 100 mg PO DAILY cinnamon bark [Cinnamon] 500 mg Capsule 1,000 mg PO DAILY cholecalciferol (vitamin D3) [Vitamin D3] 25 mcg (1,000 unit) Tablet 25 mcg PO DAILY omega [id number] oil [Fish Oil] 1,000 (120-180) mg Capsule 1 cap PO DAILY Probiotic 10 billion cell Capsule 10,000 mmu cells PO DAILY Total Beet 1 unit 650 mg PO DAILY Discontinued lisinopril 10 mg tablet 10 mg PO QAM vitamin E 200 unit Capsule 180 mg PO DAILY cefdinir 300 mg capsule 300 mg PO BID 10 Days Qty: 20 0RF Discharge Orders: Discharge Order (Routine); Ordered 08/03/24 Ordered By: Kemal Kc Admission Data Admit Date/Time: 07/30/24 11:55 Attending Provider: Yang Galan Admit Provider: Kemal Johnson Primary Care Provider: Marito Zaman Other Providers: [facility]; Sylvester Sanz; Traan Huang; Kemal Johnson; Donavan Cross; Kemal Kc Other Interventions: Discharge Summary Assessment (RN) Last Done: 08/03/24 10:31 Hospital Stay Data Consultations 07/28/24 21:22 ED Decision to Admit Stat 07/29/24 00:41 Consult Urology Routine Procedures Performed Operation Date: 07/30/24 10:50 Actual Procedures p Hand Assisted Laparoscopic Nephrectomy - Left, Bladder Irrigation(Not Applicable) - Kemal Kc MD Pending Results Patient Have Any Pending Studies at Discharge: No Discharge Instructions Given to Patient (Per Discharging Provider) Please continue your previous diet, take all medications as prescribed and keep all follow-ups as scheduled. Please call our office at [phone] with any questions, concerns or need to reschedule appointments for any reason. We are happy to assist you. Recovering at home: We recommend having someone with you for the first few days after surgery to help care for you. It is okay to shower tomorrow. Please avoid swimming, bathing or using hot tub until incisions are well healed. Avoid driving until you are not requiring pain medication any further. Walk at least a few times a day. Increase your distance, as you feel able. Stairs in your home are okay. Please avoid strenuous or sexual activity until your follow-up. We recommend using stool softener (i.e. Colace) to prevent constipation and straining, especially the first two weeks post operatively. Call [facility] at [phone] if you experience: Chest pain or trouble breathing (call 911 or go to the hospital). Fever of 101F or higher Symptoms of infection at incision site, including redness or swelling, warmth, or bad-smelling drainage If you have catheter, and you notice: o Bloody urine or drainage that is dark red or has large clots (Please remember a small amount of blood is normal) o No drainage from the catheter for more than 6 hours o The catheter comes out of your bladder Pain that is not controlled with medicines Total Time Total Time Spent Total Time Spent (In Minutes): 45 Coding Level of Care Code 47694 INP/OBS DISCH >30 MIN Diagnoses Clear cell carcinoma of left kidney C64.2 Gross hematuria R31.0 Obstructed Breen catheter T83.091A Acute urinary retention R33.8 Left kidney mass N28.89 Postoperative fever R50.82 Constipation K59.00
[2024-08-03] MEDS: POTASSIUM CHLORIDE CRTAB 20 MEQ TABCR PO STA (10:14)
== END 2024-08-03 10:53 | disposition home or self-care (01) | DRG 658 ==
LOC: 3N 18:17 → ED 18:17 → SUATTDRO 07-29 00:31 → 3N 07-29 02:15 → SUATTDRO 07-30 11:55
DX: K59.00 Constipation, unspecified; F17.200 Nicotine dependence, unspecified, uncomplicated; R33.9 Retention of urine, unspecified; K66.0 Peritoneal adhesions (postprocedural) (postinfection); Z79.899 Other long term (current) drug therapy; Z88.0 Allergy status to penicillin; Z90.49 Acquired absence of other specified parts of digestive tract; R50.82 Postprocedural fever; Y73.2 Prosthetic and other implants, materials and accessory gastroenterology and urology devices associated with adverse incidents; C64.2 Malignant neoplasm of left kidney, except renal pelvis; R31.0 Gross hematuria; I10 Essential (primary) hypertension; T83.091A Other mechanical complication of indwelling urethral catheter, initial encounter

== ENCOUNTER 2024-08-09 04:27 | Inpatient (IN) ==
--- NOTE | 2024-08-09 04:43 | Emergency Department Note ---
History of Present Illness General Chief complaint: GI Assessment Stated complaint: DIARRHEA WITH BLOOD Time Seen by Provider: 08/09/24 04:36 History of Present Illness The patient is a 68-year-old male with past medical history including left kidney mass, history of diverticulitis, hypothyroidism, lumbar herniated disc, hypertension, appendectomy, partial colectomy, cholecystectomy, nephrectomy who's Breen catheter has been removed presents to the ER for bloody diarrhea for the past day. Patient states he has had 4 episodes of grossly bloody diarrhea. He has had diarrhea for the past week. He has had a recent antibiotics. No well water. Patient denies chest pain, dyspnea, cough, congestion, flulike illness. Tmax 100. Home Medications Medication Instructions Recorded Confirmed Type cholecalciferol (vitamin D3) 25 25 mcg PO DAILY 07/24/24 08/09/24 History mcg (1,000 unit) tablet (Vitamin D3) folic acid 800 mcg tablet 0.8 mg PO DAILY 07/24/24 08/09/24 History magnesium 250 mg tablet 250 mg PO DAILY 07/24/24 08/09/24 History multivitamin 1 tab PO DAILY 07/24/24 08/09/24 History potassium 99 mg tablet 99 mg PO DAILY 07/24/24 08/09/24 History tamsulosin 0.4 mg capsule 0.4 mg PO DAILY #30 caps 07/28/24 08/09/24 Rx acetaminophen 500 mg tablet 1,000 mg PO Q6H PRN Pain 08/08/24 08/09/24 History (Tylenol Extra Strength) Allergies Allergy/AdvReac Type Severity Reaction Status Date / Time amoxicillin [From Augmentin] Allergy Mild Throat Verified 08/08/24 11:07 bleeding clavulanic acid Allergy Mild throat Verified 08/08/24 11:07 [From Augmentin] bleeding Past Med/Surg History Problem List Acute blood loss anemia Painless hematuria "it comes and goes" Large bowel perforation Abnormal CT of the abdomen Bloody diarrhea (Acute) Lower extremity edema Single functional kidney Elevated fasting blood sugar Morbid obesity Clear cell carcinoma of left kidney Constipation Postoperative fever Hypothyroidism (acquired) (~1998) Elevated blood pressure reading in office without diagnosis of hypertension Medical History Diverticulitis Lumbar herniated disc History of hypothyroidism per chart, pt. states [facility] [place] [facility]'s [facility]" Hypertension History of diverticulitis Left kidney mass no biopsy Surgical History H/O left nephrectomy 07/30/2024 History of open reduction and internal fixation (ORIF) procedure (1974) left arm History of partial colectomy (1998) 6 inches removed due to diverticulitis History of appendectomy Hx of cholecystectomy (~1998) Family History Denies family history of Ovarian cancer Prostate cancer Myocardial infarction Breast cancer Colorectal cancer Social History Smoking Status: Never smoker Second Hand Exposure: No; Do You Dip or Chew Tobacco: No; Hx Alcohol Use: No Hx Substance Use: No Preferred Language: Egyptian Communication Ability: Effective Visual Impairment: No Limitations Hearing Ability: Normal Outcomes Manager Required: No Beliefs That Will Affect Care: None marital status: Current Living Situation: Spouse Current Living Situation Comment: 2 story house with current occupational status: employed How many Children do You have: 6 Feels Safe at Home: Yes Safety Concerns: Feels Safe At This Time Childhood Exposure to Second-Hand Smoke: No Diet: regular caffeine: Yes during the past year weight has: remained stable Dental Care, Regularly: No Physical Activity Frequency: Daily Seatbelt Use: always Sunscreen Use: Yes Assistive Devices: Denture - Upper and Glasses Review of Systems A total of 10 systems reviewed and were otherwise negative Physical Exam Vital Signs Vital Signs - 24 hr 08/09/24 04:32 08/09/24 04:56 08/09/24 05:14 Temperature 36.6 C Temperature Source Oral Pulse Rate 92 H 87 83 Pulse Rate [Apical] Pulse Rate from SpO2 Sensor Respiratory Rate 18 18 Respiratory Effort / Characteristics Non-Labored Spontaneous Respiratory Depth Normal Respiratory Pattern Regular Blood Pressure 142/72 H Blood Pressure [Left Arm] Blood Pressure Mean 95 Blood Pressure Mean [Left Arm] Blood Pressure Position Sitting Blood Pressure Position [Left Arm] Pulse Oximetry 95 93 Oxygen Delivery Method Room Air Room Air Sepsis Recent Fever Within 48 Hours No Sepsis New/Unexplained Change in Mental Status N/A Sepsis Action Taken by Nursing No Action Required 08/09/24 05:18 08/09/24 06:30 08/09/24 07:24 Temperature Temperature Source Pulse Rate 74 Pulse Rate [Apical] 85 81 Pulse Rate from SpO2 Sensor 74 Respiratory Rate 20 18 20 Respiratory Effort / Characteristics Non-Labored Spontaneous Non-Labored Spontaneous Respiratory Depth Normal Normal Respiratory Pattern Regular Regular Blood Pressure Blood Pressure [Left Arm] 166/89 H 164/86 H Blood Pressure Mean Blood Pressure Mean [Left Arm] 114 112 Blood Pressure Position Blood Pressure Position [Left Arm] Sitting Lying Pulse Oximetry 93 95 94 Oxygen Delivery Method Room Air Room Air Sepsis Recent Fever Within 48 Hours Sepsis New/Unexplained Change in Mental Status Sepsis Action Taken by Nursing 08/09/24 07:36 08/09/24 08:00 Temperature Temperature Source Pulse Rate 73 76 Pulse Rate [Apical] Pulse Rate from SpO2 Sensor 73 76 Respiratory Rate 23 33 H Respiratory Effort / Characteristics Respiratory Depth Respiratory Pattern Blood Pressure Blood Pressure [Left Arm] Blood Pressure Mean Blood Pressure Mean [Left Arm] Blood Pressure Position Blood Pressure Position [Left Arm] Pulse Oximetry 96 98 Oxygen Delivery Method Room Air Sepsis Recent Fever Within 48 Hours Sepsis New/Unexplained Change in Mental Status Sepsis Action Taken by Nursing VITALS: Vitals are noted on the nurse's note and reviewed by myself. Vital signs stable. GENERAL: Pleasant gentleman, in no acute distress, nondiaphoretic, well- developed well-nourished. SKIN: Capillary reflex less than 2 seconds. HEENT: Normocephalic. PERRLA. EOMI. Nares patent. Mucous membranes moist. Neck is supple without nuchal rigidity. HEART: Regular rate and rhythm LUNGS: Clear to auscultation bilaterally without wheezes, rales or rhonchi. No retractions or accessory muscle use. ABDOMEN: Positive bowel sounds x 4. Normal tympanic percussion. Soft, nontender, without masses or organomegaly. Sanchez sign negative. No guarding or rebound tenderness. no CVA tenderness MUSCULOSKELETAL: No gross musculoskeletal defects. NEURO: Patient was alert and oriented to person place and time. No focal neurological deficits. Course Administered Medications Sodium Chloride (Nss) 1,000 mls @ 125 mls/hr IV .Q8H MAXIMILIANO Stop: 08/11/24 10:29 Last Admin: 08/09/24 18:07 Dose: 125 mls/hr Documented By: Infusion: 08/09/24 18:07 Dose: Infused Documented By: Admin: 08/09/24 10:40 Dose: 125 mls/hr Documented By: CAP Ceftriaxone Sodium (Rocephin) 2,000 mg in 50 mls @ 100 mls/hr IV Q24H MAXIMILIANO Stop: 08/19/24 13:59 Last Infusion: 08/09/24 14:42 Dose: Infused Documented By: Admin: 08/09/24 14:14 Dose: 100 mls/hr Documented By: CONRAD Metronidazole (Flagyl) 500 mg in 100 mls @ 100 mls/hr IV Q8H MAXIMILIANO; Protocol Stop: 08/19/24 19:59 Last Infusion: 08/09/24 21:04 Dose: Infused Documented By: deputy juvenile officer: 08/09/24 19:54 Dose: 100 mls/hr Documented By: TEMO Acetaminophen (Ofirmev) 1,000 mg in 100 mls @ 400 mls/hr IV Q8H PRN PRN Reason: Fever/Pain NPO Stop: 08/12/24 12:28 Last Infusion: 08/09/24 23:04 Dose: Infused Documented By: deputy juvenile officer: 08/09/24 22:46 Dose: 400 mls/hr Documented By: TEMO Ondansetron HCl (Ondansetron Inj 2 Mg/Ml 2 Ml Vial) 4 mg IV Q6H PRN PRN Reason: Nausea Stop: 09/08/24 12:28 Last Admin: 08/09/24 21:54 Dose: 4 mg Documented By: MED Discontinued Medications Sodium Chloride (Nss) 500 mls @ 999 mls/hr IV .Q31M ONE Stop: 08/09/24 05:28 Last Infusion: 08/09/24 06:49 Dose: Infused Documented By: Admin: 08/09/24 06:00 Dose: 999 mls/hr Documented By: Sodium Chloride (Nss) 500 mls @ 999 mls/hr IV .Q31M ONE Stop: 08/09/24 06:36 Last Infusion: 08/09/24 08:12 Dose: Infused Documented By: Admin: 08/09/24 07:10 Dose: 999 mls/hr Documented By: RYAN Magnesium Sulfate/Dextrose (Magnesium Sulfate / D5w) 1 gm in 100 mls @ 200 mls/hr IV Q30M MAXIMILIANO Stop: 08/09/24 08:02 Last Infusion: 08/09/24 07:32 Dose: Infused Documented By: Admin: 08/09/24 07:10 Dose: 200 mls/hr Documented By: RYAN Cefoxitin Sodium (Mefoxin) 2,000 mg in 60 mls @ 100 mls/hr IV NOW STA Stop: 08/09/24 08:30 Last Infusion: 08/09/24 08:53 Dose: Infused Documented By: Admin: 08/09/24 08:09 Dose: 100 mls/hr Documented By: RYAN Metronidazole (Flagyl) 500 mg in 100 mls @ 100 mls/hr IV NOW ONE; Protocol Stop: 08/09/24 12:59 Last Infusion: 08/09/24 14:11 Dose: Infused Documented By: Admin: 08/09/24 13:09 Dose: 100 mls/hr Documented By: CONRAD Ondansetron HCl (Ondansetron Inj 2 Mg/Ml 2 Ml Vial) 4 mg IV NOW STA Stop: 08/09/24 04:37 Last Admin: 08/09/24 06:00 Dose: Not Given Documented By: Medical Decision Making Medical Records Attestation: I reviewed the patient's medical records. Home Medications Current Medication List: was personally reviewed by me Laboratory Data Attestation: I reviewed the patient's lab results. 08/09/24 20:07 08/09/24 04:53 Lab Results 08/09/24 08/09/24 08/09/24 Range/Units 04:47 04:53 04:58 WBC 16.51 H (4.8-10.8) K/ul RBC 3.35 L (4.70-6.10) M/uL Hgb 9.7 L (14.0-18.0) g/dl POC Hgb 9.9 L (14.0-18.0) g/dl Hct 30.4 L (42.0-52.0) % POC Hct 29 L (42-52) % MCV 90.7 (80.0-100.0) fL MCH 29.0 (25.0-34.0) pg MCHC 31.9 L (32.0-36.0) g/dL RDW Std Deviation 45.1 (36.4-46.3) fL RDW Coeff of Jil 13.5 (11.5-14.5) % Plt Count 395 (130-400) K/uL MPV 9.3 L (9.4-12.4) fL Immature Gran % (Auto) 2.1 % Neut % (Auto) 73.9 % Lymph % (Auto) 13.4 % [place] % (Auto) 8.7 % Eos % (Auto) 1.6 % Baso % (Auto) 0.3 % Neut # (Auto) 12.20 H (1.40-6.50) K/uL Lymph # (Auto) 2.21 (1.20-3.40) K/uL [place] # (Auto) 1.44 H (0.11-0.59) K/uL Eos # (Auto) 0.27 (0.00-0.50) K/uL Baso # (Auto) 0.05 (0.00-0.20) K/uL Immature Gran # (Auto) 0.34 H (0.01-0.20) K/uL POC Sodium 139 (135-144) mmol/L Sodium 137 (136-145) mmol/L POC Potassium 3.5 (3.3-5.0) mmol/L Potassium 3.5 (3.5-5.1) mmol/L POC Chloride 103 (101-112) mmol/L Chloride 103 (98-107) mmol/L Carbon Dioxide 26 (21-32) mmol/L POC Total CO2 23 L (24-31) mmol/L Anion Gap 8 (3-11) POC Anion Gap 17.0 (16-25) mmol/L POC BUN 17 (7-18) mg/dl BUN 18 (6-23) mg/dl Creatinine 1.62 H (0.6-1.4) mg/dl POC Creatinine 1.8 H (0.6-1.3) mg/dl Est Cr Clr Drug Dosing 47.9 ml/min eGFR 45.67 BUN/Creatinine Ratio 11.1 (10-20) Glucose 147 H (70-99(Fasting)) mg/dl POC Glucose (other) 149 H (70-99) mg/dl Calcium 8.3 L (8.6-10.3) mg/dl POC Ioniz Calcium Darius 1.08 L (1.12-1.32) mmol/l Magnesium 2.5 H (1.7-2.4) mg/dl Total Bilirubin 0.4 (0.2-1.0) mg/dl AST 34 (13-39) U/L ALT 28 (7-52) U/L Alkaline Phosphatase 85 (34-104) U/L Troponin I High Sens 11.7 (0-20) pg/ml Total Protein 7.2 (6.0-8.3) gm/dl Albumin 2.9 L (3.4-5.0) gm/dl Globulin 4.3 H (2.5-4.0) gm/dl Albumin/Globulin Ratio 0.7 L (0.9-2) Urine Color Urine Appearance (Clear) Urine pH (4.5-7.5) Ur Specific [place] (1.000-1.030) Urine Protein (Negative) Urine Glucose (UA) (Negative) Urine Ketones (Negative) Urine Blood (Negative) Urine Nitrite (Negative) Urine Bilirubin (Negative) Urine Urobilinogen (Negative) Ur Leukocyte Esterase (Negative) Urine WBC (Auto) (0-5) /hpf Urine RBC (Auto) (0-2) /hpf U Hyaline Cast (Auto) (0-2) /lpf U Epithel Cells (Auto) (0-2) /hpf Urine Bacteria (Auto) (None Seen) Stl C. cayetanensis PCR Not Detected (NotDetected) Stool Rotavirus A PCR Not Detected (NotDetected) Stl Adenov F 40/41 PCR Not Detected (NotDetected) Stool Astrovirus (PCR) Not Detected (NotDetected) Stool Campylobacter PCR Not Detected (NotDetected) Stl C. diff Tox B Gene Negative Cdiff Gene (Neg) Stool Cryptosporidium PCR Not Detected (NotDetected) Stl E.coli Shiga Tox PCR Not Detected (NotDetected) Stl Enterotoxigenic E PCR Not Detected (NotDetected) Stool EPEC (PCR) Not Detected (NotDetected) Stool EAEC (PCR) Not Detected (NotDetected) Stl E. histolytica PCR Not Detected (NotDetected) Stool Giardia Lamblia PCR Not Detected (NotDetected) Stool Salmonella PCR Not Detected (NotDetected) Stool Sapovirus (PCR) Not Detected (NotDetected) Stl P. shigelloides PCR Not Detected (NotDetected) Stl Shigella/EIEC PCR Not Detected (NotDetected) St Y.enterocolitica PCR Not Detected (NotDetected) Stool Vibrio (PCR) Not Detected (NotDetected) Stl Vibrio cholerae PCR Not Detected (NotDetected) Stl Norovirus GI/GII PCR Not Detected (NotDetected) Blood Type Antibody Screen 08/09/24 08/09/24 Range/Units 05:20 08:01 WBC (4.8-10.8) K/ul RBC (4.70-6.10) M/uL Hgb (14.0-18.0) g/dl POC Hgb (14.0-18.0) g/dl Hct (42.0-52.0) % POC Hct (42-52) % MCV (80.0-100.0) fL MCH (25.0-34.0) pg MCHC (32.0-36.0) g/dL RDW Std Deviation (36.4-46.3) fL RDW Coeff of Jil (11.5-14.5) % Plt Count (130-400) K/uL MPV (9.4-12.4) fL Immature Gran % (Auto) % Neut % (Auto) % Lymph % (Auto) % [place] % (Auto) % Eos % (Auto) % Baso % (Auto) % Neut # (Auto) (1.40-6.50) K/uL Lymph # (Auto) (1.20-3.40) K/uL [place] # (Auto) (0.11-0.59) K/uL Eos # (Auto) (0.00-0.50) K/uL Baso # (Auto) (0.00-0.20) K/uL Immature Gran # (Auto) (0.01-0.20) K/uL POC Sodium (135-144) mmol/L Sodium (136-145) mmol/L POC Potassium (3.3-5.0) mmol/L Potassium (3.5-5.1) mmol/L POC Chloride (101-112) mmol/L Chloride (98-107) mmol/L Carbon Dioxide (21-32) mmol/L POC Total CO2 (24-31) mmol/L Anion Gap (3-11) POC Anion Gap (16-25) mmol/L POC BUN (7-18) mg/dl BUN (6-23) mg/dl Creatinine (0.6-1.4) mg/dl POC Creatinine (0.6-1.3) mg/dl Est Cr Clr Drug Dosing ml/min eGFR BUN/Creatinine Ratio (10-20) Glucose (70-99(Fasting)) mg/dl POC Glucose (other) (70-99) mg/dl Calcium (8.6-10.3) mg/dl POC Ioniz Calcium Darius (1.12-1.32) mmol/l Magnesium (1.7-2.4) mg/dl Total Bilirubin (0.2-1.0) mg/dl AST (13-39) U/L ALT (7-52) U/L Alkaline Phosphatase (34-104) U/L Troponin I High Sens (0-20) pg/ml Total Protein (6.0-8.3) gm/dl Albumin (3.4-5.0) gm/dl Globulin (2.5-4.0) gm/dl Albumin/Globulin Ratio (0.9-2) Urine Color Yellow Urine Appearance Clear (Clear) Urine pH 5.5 (4.5-7.5) Ur Specific [place] 1.020 (1.000-1.030) Urine Protein 1+ H (Negative) Urine Glucose (UA) Negative (Negative) Urine Ketones Negative (Negative) Urine Blood Negative (Negative) Urine Nitrite Negative (Negative) Urine Bilirubin Negative (Negative) Urine Urobilinogen Negative (Negative) Ur Leukocyte Esterase Negative (Negative) Urine WBC (Auto) 0-5 (0-5) /hpf Urine RBC (Auto) 0-2 (0-2) /hpf U Hyaline Cast (Auto) 0-2 (0-2) /lpf U Epithel Cells (Auto) 0-2 (0-2) /hpf Urine Bacteria (Auto) None Seen (None Seen) Stl C. cayetanensis PCR (NotDetected) Stool Rotavirus A PCR (NotDetected) Stl Adenov F 40/41 PCR (NotDetected) Stool Astrovirus (PCR) (NotDetected) Stool Campylobacter PCR (NotDetected) Stl C. diff Tox B Gene (Neg) Stool Cryptosporidium PCR (NotDetected) Stl E.coli Shiga Tox PCR (NotDetected) Stl Enterotoxigenic E PCR (NotDetected) Stool EPEC (PCR) (NotDetected) Stool EAEC (PCR) (NotDetected) Stl E. histolytica PCR (NotDetected) Stool Giardia Lamblia PCR (NotDetected) Stool Salmonella PCR (NotDetected) Stool Sapovirus (PCR) (NotDetected) Stl P. shigelloides PCR (NotDetected) Stl Shigella/EIEC PCR (NotDetected) St Y.enterocolitica PCR (NotDetected) Stool Vibrio (PCR) (NotDetected) Stl Vibrio cholerae PCR (NotDetected) Stl Norovirus GI/GII PCR (NotDetected) Blood Type O Positive Antibody Screen NEGATIVE Imaging Data Attestation: I personally reviewed and interpreted this imaging study as follows: MDM Narrative Prior records/ancillary studies reviewed. Triage Nursing notes reviewed. Additional history obtained from the family. The patient's history was concerning for bloody diarrhea, diarrhea, and abdominal pain. Differential diagnosis: Etiologies such as gastroenteritis, food borne illness, infections, appendicitis, diverticulitis, inflammatory bowel disease, obstruction, GI bleed, biliary pathology, as well as others were entertained. Physical examination findings: As above. Abdominal examination revealed no localized tenderness. Vital signs reviewed and revealed stable. ER treatment provided: IV hydration On reassessment the patient felt better. Patient was tolerating p.o. intake. Diagnostics interpretation by me: EKG ordered for weakness EKG: Normal sinus, left axis, no acute ST-T wave changes, rate of 90. Impression normal sinus rhythm with a left axis deviation independently interpreted by myself The labs Independently Interpreted by myself revealed creatinine 1.6 Leukocytosis, stable H&H Negative C. difficile Imaging studies: Imaging was pending at time of shift change Case signed out to oncoming provider pending CAT scan and reevaluation in stable condition. The chart was completed utilizing [employer] voice recognition software. Grammatical errors, random word insertions, pronoun errors, and incomplete sentences are an occassional consequence of this system due to software limitations, ambient noise, and hardware issues. Any formal questions or concerns about the content, text, or information contained within the body of this dictation should be directly addressed to the physician kitchen assistant for clarification. Impression & Plan Bloody diarrhea Discharge Plan Visit Data Chief Complaint: GI Assessment Stated Complaint: DIARRHEA WITH BLOOD ED Provider: Josiane Zavaleta ED Midlevel Provider: Jacky Reinoso Discharge Problem: Bloody diarrhea Patient Disposition: Admitted As Inpatient Condition: Fair Discharge Instructions Interventions: ED Discharge Assessment Last Done: 08/09/24 12:21
[2024-08-09 05:09] LABS: Basophils # (auto) 0.05 K/uL (0.00-0.20); Basophils % (auto) 0.3 %; Eosinophils # (auto) 0.27 K/uL (0.00-0.50); Eosinophils % (auto) 1.6 %; Hematocrit (blood only) 30.4 % (42.0-52.0); Hemoglobin 9.7 g/dl (14.0-18.0); Immature Granulocytes # (auto) 0.34 K/uL (0.01-0.20); Immature Granulocytes % (auto) 2.1 %; Lymphocytes # (auto) 2.21 K/uL (1.20-3.40); Lymphocytes % (auto) 13.4 %; Mean Corpuscular Hgb Conc 31.9 g/dL (32.0-36.0); Mean Corpuscular Volume 90.7 fL (80.0-100.0); Mean Platelet Volume 9.3 fL (9.4-12.4); Monocytes # (auto) 1.44 K/uL (0.11-0.59); Monocytes % (auto) 8.7 %; Neutrophils % (auto) 73.9 %; Platelet Count 395 K/uL (130-400); RDW Coefficient of Variation 13.5 % (11.5-14.5); RDW Standard Deviation 45.1 fL (36.4-46.3); Red Blood Count 3.35 M/uL (4.70-6.10); White Blood Count 16.51 K/ul (4.8-10.8)
[2024-08-09 05:13] LABS: iSTAT Creatinine 1.8 mg/dl (0.6-1.3); iSTAT Hemoglobin 9.9 g/dl (14.0-18.0); iSTAT Ionized Calcium 1.08 mmol/l (1.12-1.32); iSTAT Potassium 3.5 mmol/L (3.3-5.0)
[2024-08-09 05:27] LABS: Albumin Globulin Ratio 0.7 (0.9-2); Albumin Level 2.9 gm/dl (3.4-5.0); BUN Creatinine Ratio 11.1 (10-20); Bilirubin,Total 0.4 mg/dl (0.2-1.0); Calcium 8.3 mg/dl (8.6-10.3); Creatinine Clr Calc Pharmacy 47.9 ml/min; Globulin 4.3 gm/dl (2.5-4.0); Magnesium 2.5 mg/dl (1.7-2.4); Potassium 3.5 mmol/L (3.5-5.1); Total Protein 7.2 gm/dl (6.0-8.3)
[2024-08-09 05:34] LABS: Troponin I High Sensitivity 11.7 pg/ml (0-20)
[2024-08-09] MEDS: SODIUM CHLORIDE 0.9% 500 ML IV ONE ×2 (06:00→07:10)
[2024-08-09] MEDS: ONDANSETRON INJ 2 MG/ML 2 ML VIAL IV STA (06:00)
--- NOTE | 2024-08-09 06:08 | Emergency Department Note ---
ED Visit Note I was consulted by the Advanced Practice Provider. I approved the management plan and take responsibility for the patient management. I performed a substantive portion of the visit. This includes the aspects of: -History/Physical -MDM -I independently interpreted the following studies:Studies and results .
[2024-08-09 06:18] LABS: Adenovirus F 40/41 PCR Not Detected (NotDetected); Astrovirus PCR Not Detected (NotDetected); Campylobacter PCR Not Detected (NotDetected); Cryptosporidium PCR Not Detected (NotDetected); Cyclospora cayetanensis PCR Not Detected (NotDetected); Entamoeba histolytica PCR Not Detected (NotDetected); Enteroaggregative E.coli(EAEC) Not Detected (NotDetected); Enteropathogenic E.coli (EPEC) Not Detected (NotDetected); Enterotoxigenic E.coli (ETEC) Not Detected (NotDetected); Giardia lamblia PCR Not Detected (NotDetected); Norovirus GI/GII PCR Not Detected (NotDetected); Plesiomonas shigelloides PCR Not Detected (NotDetected); Rotavirus A PCR Not Detected (NotDetected); Salmonella PCR Not Detected (NotDetected); Sapovirus PCR Not Detected (NotDetected); Shiga-like Toxin E.coli (STEC) Not Detected (NotDetected); Shigella/Enteroinvasive E.coli Not Detected (NotDetected); Vibrio cholerae PCR Not Detected (NotDetected); Vibrio species PCR Not Detected (NotDetected); Yersinia enterocolitica PCR Not Detected (NotDetected)
--- NOTE | 2024-08-09 07:02 | Emergency Department Note ---
ED Visit Note 68-year-old male whose care was transferred to fl from Iram Mackenzie PA-C at change of shift. The patient presented to the emergency department with complaint of bloody diarrhea for the past week. At the time of transfer of care, CT imaging of the abdomen and pelvis was completed, but radiologist report was pending. Patient does have a history of diverticulitis, partial colectomy, cholecystectomy and nephrectomy 10 days ago for a left kidney mass. The patient's Breen catheter has since been removed since his surgery. Review of labs does show a moderate leukocytosis with a hemoglobin of 9.7, with recent trending anemia. Creatinine is 1.62. CT port was completed, showing a short segment asymmetric dilatation of the descending and sigmoid colon junction in the left lower quadrant of the abdomen, loaded with fecal material, significant pericolic fat stranding with mild wall thickening and extraluminal air. There are multiple air foci in the subcutaneous plane overlying the left lower quadrant which may suggest recent surgery. The free localized area joining bowel loops may represent a contained large bowel perforation, possibly due to underlying diverticulitis. Given the patient's elevated white count and CT finding, an order was placed for IV Mefoxin, with the patient reporting an allergy to Augmentin. Findings were discussed with the patient. He continued to deny any pain. I initially reached out to Dr. Segura, general surgeon on-call, who reviewed CT imaging, and recommended that I discussed the case further with nephrology. I then spoke with JANICE Darden who was going to have Dr. Kim or Dr. Cross reviewed CT imaging. All consultants did evaluate the patient, and recommended admission for further observation and repeat CT imaging to be determined/ordered by Dr. Segura. The case was then discussed with [facility], who also agreed to evaluate the patient. Please see the ospitalist, general surgery and urology dictation for further treatment and final disposition. The patient continued to deny any significant abdominal discomfort prior to transfer of care to the hospitalist service. The case was also discussed with my attending physician, Dr. Bajwa, as well as the overnight attending physician, Dr. Zavaleta, who helped to formulate further workup and plan of care. DIAGNOSIS: 1. Bloody diarrhea 2. Acute blood loss anemia 3. Abnormal abdominal CT scan 4. Status post left nephrectomy
--- NOTE | 2024-08-09 07:04 | CT Scan Report ---
EXAM: CT abd pelvis wo con CLINICAL HISTORY: Abd pain, diarrhea, recent nephrectomy TECHNIQUE: Contiguous axial images were obtained from the level of the diaphragm to the pubic symphysis without intravenous or oral contrast. Coronal and sagittal reconstructions were likewise performed and indicated to increase the sensitivity for detecting clinically relevant pathology. CT scan was performed according to ALARA (as low as reasonably achievable). COMPARISON: CT, 06/11/2024 18:05:20 [employer]OT[employer] TECHNOLOGIST FINDINGS: The visualized lung bases shows mild bilateral pleural effusion. Evaluation of the abdominal and pelvic visceral organs is limited without intravenous contrast. The unenhanced liver, spleen, pancreas are grossly unremarkable. Post cholecystectomy status. Bulky medial limb of left adrenal gland. Left post nephrectomy status. Ill defined fluid in left renal fossa. Right kidney is normal in size and attenuation without obvious calcification. There is no hydronephrosis. Right paranephric fat stranding seen. The right ureter is normal in caliber. No adenopathy or fluid collections are seen. Multiple small diverticuli seen in entire large bowel. Short segment asymmetric dilatation of descending colon and sigmoid colon junction at left lower quadrant of abdomen, loaded with fecal matter and significant pericolic fat stranding with mild wall thickening. Pericolic extraluminal air is seen. Multiple tiny air foci are seen in the subcutaneous plane overlying the left lower quadrant. The appendix is not visualized. The aorta is normal in caliber. The urinary bladder is minimally filled. Pelvic viscera are grossly unremarkable. No aggressive appearing osseous lesions are identified. Small fat containing umbilical hernia, defect measures 8x7mm. IMPRESSION: 1. Diffuse colonic diverticulosis. 2. Short segment asymmetric dilatation of descending and sigmoid colon junction in the left lower quadrant of abdomen, loaded with fecal matter ,significant pericolic fat stranding with mild wall thickening and extraluminal air. There are multiple air foci in the subcutaneous plane overlying the left lower quadrant which may suggest recent surgery. The free localized air adjoining bowel loop may represent a contained large bowel perforation, could be due to underlying diverticulitis. New finding. Clinical correlation is recommended. 3. Bulky medial limb of left adrenal gland. New finding 4. Left post nephrectomy status with Ill defined fluid in left renal fossa. 5. Stable small fat containing umbilical hernia. 6. Stable Right paranephric fat stranding. 7. Interval development of bilateral mild pleural effusion. Electronically signed by Davide Stratton 08-09-2024 07:04 AM
[2024-08-09] MEDS: MAGNESIUM SULFATE / D5W 1 GM/100 ML BAG IV SCH (07:10)
[2024-08-09] MEDS: cefOXitin 2,000 MG/60 ML BAG IV STA (08:09)
[2024-08-09 08:14] LABS: Appearance Urine Clear (Clear); Bacteria Urine Automated None Seen (None Seen); Bilirubin Urine Negative (Negative); Blood Urine Negative (Negative); Cast Urine Automated 0-2 /lpf (0-2); Color Urine Yellow; Epithelial Cell Urine Auto 0-2 /hpf (0-2); Glucose Urine UA Negative (Negative); Ketones Urine Negative (Negative); Leukocyte Esterase Urine Negative (Negative); Nitrite Urine Negative (Negative); Protein Urine 1+ (Negative); RBC Urine Automated 0-2 /hpf (0-2); Urobilinogen Urine Negative (Negative); WBC Urine Automated 0-5 /hpf (0-5); pH Urine 5.5 (4.5-7.5)
--- NOTE | 2024-08-09 09:19 | Surgery Consultation ---
Date of Consultation August 09, 2024 Assessment & Plan (1) Bloody diarrhea: (2) Clear cell carcinoma of left kidney: (3) Abnormal CT of the abdomen: Plan 68 yo male who is 10 days s/p hand assisted left radical nephrectomy for left renal carcinoma presented to ED with bloody diarrhea. CT scan of abdomen and pelvis wo contrast showing contained perforation of the distal descending/sigmoid colon with associated pericolonic stranding. leukocytosis of 16k, afebrile, bloody diarrhea started last evening. History of diverticulitis with sigmoid colon resection in 1998. Abdominal examination with mild tenderness in LLQ but no peritonitis or rigidity, hemodynamically stable. Post operative course from nephrectomy complicated with elevated wbc and ileus. Plan: Discussed imaging findings with patient and . Patient evaluated with Urology JANICE, Suleman Dejesus Discussed conservative management with npo for bowel rest, iv fluids iv antibiotics and possibly repeating ct scan with oral or rectal contrast in next few days. Discussed may require surgical intervention if clinically worsens and if so would require temporary colostomy. Encouraged oob to chair and ambulate given recent surgery will follow along Discussed with Dr. Segura who agrees with above , see addendum for further recommendations/plan. Supervising Physician Co-Signing Physician Notes I have seen and examined the patient and agree with the above assessment and plan. In brief, he is 10 days status post a left radical nephrectomy for left renal carcinoma. This was a very difficult case with a lot of adhesions and adhesiolysis. He developed some diarrhea that progressed to bloody diarrhea. He states it was gordon color. He denies any pain or tenderness. CT scan demonstrated possibility of a contained perforation of the distal descending sigmoid colon possibly related to diverticulitis versus the surgery 10 days ago. On exam he is completely benign. Discussed case with urology. We will keep him n.p.o. for now, placed him on IV antibiotics. We will observe for now, no urgent surgical intervention required. If he were to worsen he may require exploratory laparotomy. We will continue to monitor closely. History of Present Illness Reason for Consultation: Bloody diarrhea, bowel perforation Requesting Physician: Jacky Reinoso PA-C History of Present Illness Torres is a pleasant 68 yo male who recently underwent hand assisted total nephrectomy by Dr. Kc 10 days ago for large left kidney mass and gross hematuria. He had somewhat prolonged postoperative course with postop ileus and elevated wbc but eventually discharged on Monday. States he was doing well up until Monday evening in which he develop fever of 101 with sweats and then diarrhea with blood in it last evening. states stool look somewhat dark in nature at first then had bright red blood upon wiping. No persistent fevers, nausea, vomiting, abdominal pain, difficulty urinating, blood in urine, chest pain, shortness of breath. states he is eating but not eating much. Otherwise feels okay. History of diverticulitis with left colon resection in 1998 and cholecystectomy and appendectomy following. Allergies Allergy/AdvReac Type Severity Reaction Status Date / Time amoxicillin [From Augmentin] Allergy Mild Throat Verified 08/08/24 11:07 bleeding clavulanic acid Allergy Mild throat Verified 08/08/24 11:07 [From Augmentin] bleeding Home Medications Medication Instructions Recorded Confirmed Type cholecalciferol (vitamin D3) 25 25 mcg PO DAILY 07/24/24 08/09/24 History mcg (1,000 unit) tablet (Vitamin D3) folic acid 800 mcg tablet 0.8 mg PO DAILY 07/24/24 08/09/24 History magnesium 250 mg tablet 250 mg PO DAILY 07/24/24 08/09/24 History multivitamin 1 tab PO DAILY 07/24/24 08/09/24 History potassium 99 mg tablet 99 mg PO DAILY 07/24/24 08/09/24 History tamsulosin 0.4 mg capsule 0.4 mg PO DAILY #30 caps 07/28/24 08/09/24 Rx acetaminophen 500 mg tablet 1,000 mg PO Q6H PRN Pain 08/08/24 08/09/24 History (Tylenol Extra Strength) Patient History Medical History Diverticulitis Lumbar herniated disc History of hypothyroidism per chart, pt. states [facility] [place] and "it's ok" Hypertension History of diverticulitis Left kidney mass no biopsy Surgical History H/O left nephrectomy 07/30/2024 History of open reduction and internal fixation (ORIF) procedure (1974) left arm History of partial colectomy (1998) 6 inches removed due to diverticulitis History of appendectomy Hx of cholecystectomy (~1998) Family History Denies family history of Ovarian cancer Prostate cancer Myocardial infarction Breast cancer Colorectal cancer Social History Smoking Status: Never smoker Second Hand Exposure: No; Do You Dip or Chew Tobacco: No; Hx Alcohol Use: No Hx Substance Use: No Preferred Language: Welsh Communication Ability: Effective Visual Impairment: No Limitations Hearing Ability: Normal Employment Service Specialist Required: No Beliefs That Will Affect Care: None marital status: Current Living Situation: Spouse Current Living Situation Comment: 2 story house with current occupational status: employed How many Children do You have: 6 Feels Safe at Home: Yes Safety Concerns: Feels Safe At This Time Childhood Exposure to Second-Hand Smoke: No Diet: regular caffeine: Yes during the past year weight has: remained stable Dental Care, Regularly: No Physical Activity Frequency: Daily Seatbelt Use: always Sunscreen Use: Yes Assistive Devices: Denture - Upper and Glasses Review of Systems Review of Systems: All systems reviewed & are unremarkable except as noted in HPI & below Physical Exam Constitutional: well developed, well nourished, + obese, cooperative and comfortable; no acute distress Respiratory: normal respiratory effort, lungs clear to auscultation Cardiovascular: Rate/Rhythm: regular rate and regular rhythm Heart Sounds: normal S1 and normal S2; no murmur Gastrointestinal (Abdomen): Inspection/Auscultation: + abdomen distended (mild distention), + abdominal surgical scar (left paramedian scar, laparoscopic scars) and + abdominal surgical incision (laparoscopic left lower quadrant trans verse scar) Percussion/Palpation: + abdomen tender (mild in the LLQ on deep palpation) and abdomen soft; no guarding, abdomen not rigid and abdomen not firm No peritonitis or rigidity Skin: no rashes, warm and dry Psychiatric: A+Ox3, euthymic affect Results & Data Vital Signs (Past 12 Hours) Vital Signs Temp Pulse Pulse Resp BP BP Pulse Ox 08/09/24 08:00 76 33 H 98 08/09/24 07:36 73 23 96 08/09/24 07:24 74 20 94 08/09/24 06:30 81 18 164/86 H 95 08/09/24 05:18 85 20 166/89 H 93 08/09/24 05:14 83 18 93 08/09/24 04:56 87 08/09/24 04:32 36.6 C 92 H 18 142/72 H 95 O2 Del Method 08/09/24 08:00 Room Air 08/09/24 07:36 08/09/24 07:24 08/09/24 06:30 Room Air 08/09/24 05:18 Room Air 08/09/24 05:14 Room Air 08/09/24 04:56 08/09/24 04:32 Room Air Laboratory Results 08/09/24 08/09/24 08/09/24 Range/Units 08:01 05:20 04:58 WBC (4.8-10.8) K/ul RBC (4.70-6.10) M/uL Hgb (14.0-18.0) g/dl POC Hgb 9.9 L (14.0-18.0) g/dl Hct (42.0-52.0) % POC Hct 29 L (42-52) % MCV (80.0-100.0) fL MCH (25.0-34.0) pg MCHC (32.0-36.0) g/dL RDW Std Deviation (36.4-46.3) fL RDW Coeff of Jil (11.5-14.5) % Plt Count (130-400) K/uL MPV (9.4-12.4) fL Immature Gran % (Auto) % Neut % (Auto) % Lymph % (Auto) % Swain % (Auto) % Eos % (Auto) % Baso % (Auto) % Neut # (Auto) (1.40-6.50) K/uL Lymph # (Auto) (1.20-3.40) K/uL Swain # (Auto) (0.11-0.59) K/uL Eos # (Auto) (0.00-0.50) K/uL Baso # (Auto) (0.00-0.20) K/uL Immature Gran # (Auto) (0.01-0.20) K/uL POC Sodium 139 (135-144) mmol/L Sodium (136-145) mmol/L POC Potassium 3.5 (3.3-5.0) mmol/L Potassium (3.5-5.1) mmol/L POC Chloride 103 (101-112) mmol/L Chloride (98-107) mmol/L Carbon Dioxide (21-32) mmol/L POC Total CO2 23 L (24-31) mmol/L Anion Gap (3-11) POC Anion Gap 17.0 (16-25) mmol/L POC BUN 17 (7-18) mg/dl BUN (6-23) mg/dl Creatinine (0.6-1.4) mg/dl POC Creatinine 1.8 H (0.6-1.3) mg/dl Est Cr Clr Drug Dosing ml/min eGFR BUN/Creatinine Ratio (10-20) Glucose (70-99(Fasting)) mg/dl POC Glucose (other) 149 H (70-99) mg/dl Calcium (8.6-10.3) mg/dl POC Ioniz Calcium Darius 1.08 L (1.12-1.32) mmol/l Magnesium (1.7-2.4) mg/dl Total Bilirubin (0.2-1.0) mg/dl AST (13-39) U/L ALT (7-52) U/L Alkaline Phosphatase (34-104) U/L Troponin I High Sens (0-20) pg/ml Total Protein (6.0-8.3) gm/dl Albumin (3.4-5.0) gm/dl Globulin (2.5-4.0) gm/dl Albumin/Globulin Ratio (0.9-2) Urine Color Yellow Urine Appearance Clear (Clear) Urine pH 5.5 (4.5-7.5) Ur Specific [place] 1.020 (1.000-1.030) Urine Protein 1+ H (Negative) Urine Glucose (UA) Negative (Negative) Urine Ketones Negative (Negative) Urine Blood Negative (Negative) Urine Nitrite Negative (Negative) Urine Bilirubin Negative (Negative) Urine Urobilinogen Negative (Negative) Ur Leukocyte Esterase Negative (Negative) Urine WBC (Auto) 0-5 (0-5) /hpf Urine RBC (Auto) 0-2 (0-2) /hpf U Hyaline Cast (Auto) 0-2 (0-2) /lpf U Epithel Cells (Auto) 0-2 (0-2) /hpf Urine Bacteria (Auto) None Seen (None Seen) Stl C. cayetanensis PCR (NotDetected) Stool Rotavirus A PCR (NotDetected) Stl Adenov F 40/41 PCR (NotDetected) Stool Astrovirus (PCR) (NotDetected) Stool Campylobacter PCR (NotDetected) Stl C. diff Tox B Gene (Neg) Stool Cryptosporidium PCR (NotDetected) Stl E.coli Shiga Tox PCR (NotDetected) Stl Enterotoxigenic E PCR (NotDetected) Stool EPEC (PCR) (NotDetected) Stool EAEC (PCR) (NotDetected) Stl E. histolytica PCR (NotDetected) Stool Giardia Lamblia PCR (NotDetected) Stool Salmonella PCR (NotDetected) Stool Sapovirus (PCR) (NotDetected) Stl P. shigelloides PCR (NotDetected) Stl Shigella/EIEC PCR (NotDetected) St Y.enterocolitica PCR (NotDetected) Stool Vibrio (PCR) (NotDetected) Stl Vibrio cholerae PCR (NotDetected) Stl Norovirus GI/GII PCR (NotDetected) Blood Type O Positive Antibody Screen NEGATIVE 08/09/24 08/09/24 Range/Units 04:53 04:47 WBC 16.51 H (4.8-10.8) K/ul RBC 3.35 L (4.70-6.10) M/uL Hgb 9.7 L (14.0-18.0) g/dl POC Hgb (14.0-18.0) g/dl Hct 30.4 L (42.0-52.0) % POC Hct (42-52) % MCV 90.7 (80.0-100.0) fL MCH 29.0 (25.0-34.0) pg MCHC 31.9 L (32.0-36.0) g/dL RDW Std Deviation 45.1 (36.4-46.3) fL RDW Coeff of Jil 13.5 (11.5-14.5) % Plt Count 395 (130-400) K/uL MPV 9.3 L (9.4-12.4) fL Immature Gran % (Auto) 2.1 % Neut % (Auto) 73.9 % Lymph % (Auto) 13.4 % Swain % (Auto) 8.7 % Eos % (Auto) 1.6 % Baso % (Auto) 0.3 % Neut # (Auto) 12.20 H (1.40-6.50) K/uL Lymph # (Auto) 2.21 (1.20-3.40) K/uL Swain # (Auto) 1.44 H (0.11-0.59) K/uL Eos # (Auto) 0.27 (0.00-0.50) K/uL Baso # (Auto) 0.05 (0.00-0.20) K/uL Immature Gran # (Auto) 0.34 H (0.01-0.20) K/uL POC Sodium (135-144) mmol/L Sodium 137 (136-145) mmol/L POC Potassium (3.3-5.0) mmol/L Potassium 3.5 (3.5-5.1) mmol/L POC Chloride (101-112) mmol/L Chloride 103 (98-107) mmol/L Carbon Dioxide 26 (21-32) mmol/L POC Total CO2 (24-31) mmol/L Anion Gap 8 (3-11) POC Anion Gap (16-25) mmol/L POC BUN (7-18) mg/dl BUN 18 (6-23) mg/dl Creatinine 1.62 H (0.6-1.4) mg/dl POC Creatinine (0.6-1.3) mg/dl Est Cr Clr Drug Dosing 47.9 ml/min eGFR 45.67 BUN/Creatinine Ratio 11.1 (10-20) Glucose 147 H (70-99(Fasting)) mg/dl POC Glucose (other) (70-99) mg/dl Calcium 8.3 L (8.6-10.3) mg/dl POC Ioniz Calcium Adrius (1.12-1.32) mmol/l Magnesium 2.5 H (1.7-2.4) mg/dl Total Bilirubin 0.4 (0.2-1.0) mg/dl AST 34 (13-39) U/L ALT 28 (7-52) U/L Alkaline Phosphatase 85 (34-104) U/L Troponin I High Sens 11.7 (0-20) pg/ml Total Protein 7.2 (6.0-8.3) gm/dl Albumin 2.9 L (3.4-5.0) gm/dl Globulin 4.3 H (2.5-4.0) gm/dl Albumin/Globulin Ratio 0.7 L (0.9-2) Urine Color Urine Appearance (Clear) Urine pH (4.5-7.5) Ur Specific [place] (1.000-1.030) Urine Protein (Negative) Urine Glucose (UA) (Negative) Urine Ketones (Negative) Urine Blood (Negative) Urine Nitrite (Negative) Urine Bilirubin (Negative) Urine Urobilinogen (Negative) Ur Leukocyte Esterase (Negative) Urine WBC (Auto) (0-5) /hpf Urine RBC (Auto) (0-2) /hpf U Hyaline Cast (Auto) (0-2) /lpf U Epithel Cells (Auto) (0-2) /hpf Urine Bacteria (Auto) (None Seen) Stl C. cayetanensis PCR Not Detected (NotDetected) Stool Rotavirus A PCR Not Detected (NotDetected) Stl Adenov F 40/41 PCR Not Detected (NotDetected) Stool Astrovirus (PCR) Not Detected (NotDetected) Stool Campylobacter PCR Not Detected (NotDetected) Stl C. diff Tox B Gene Negative Cdiff Gene (Neg) Stool Cryptosporidium PCR Not Detected (NotDetected) Stl E.coli Shiga Tox PCR Not Detected (NotDetected) Stl Enterotoxigenic E PCR Not Detected (NotDetected) Stool EPEC (PCR) Not Detected (NotDetected) Stool EAEC (PCR) Not Detected (NotDetected) Stl E. histolytica PCR Not Detected (NotDetected) Stool Giardia Lamblia PCR Not Detected (NotDetected) Stool Salmonella PCR Not Detected (NotDetected) Stool Sapovirus (PCR) Not Detected (NotDetected) Stl P. shigelloides PCR Not Detected (NotDetected) Stl Shigella/EIEC PCR Not Detected (NotDetected) St Y.enterocolitica PCR Not Detected (NotDetected) Stool Vibrio (PCR) Not Detected (NotDetected) Stl Vibrio cholerae PCR Not Detected (NotDetected) Stl Norovirus GI/GII PCR Not Detected (NotDetected) Blood Type Antibody Screen Diagnostic Findings EXAM: CT abd pelvis wo con CLINICAL HISTORY: Abd pain, diarrhea, recent nephrectomy TECHNIQUE: Contiguous axial images were obtained from the level of the diaphragm to the pubic symphysis without intravenous or oral contrast. Coronal and sagittal reconstructions were likewise performed and indicated to increase the sensitivity for detecting clinically relevant pathology. CT scan was performed according to ALARA (as low as reasonably achievable). COMPARISON: CT, 06/11/2024 18:05:20 ENTRY LEVEL INSTALLATION TECHNICIAN FINDINGS: The visualized lung bases shows mild bilateral pleural effusion. Evaluation of the abdominal and pelvic visceral organs is limited without intravenous contrast. The unenhanced liver, spleen, pancreas are grossly unremarkable. Post cholecystectomy status. Bulky medial limb of left adrenal gland. Left post nephrectomy status. Ill defined fluid in left renal fossa. Right kidney is normal in size and attenuation without obvious calcification. There is no hydronephrosis. Right paranephric fat stranding seen. The right ureter is normal in caliber. No adenopathy or fluid collections are seen. Multiple small diverticuli seen in entire large bowel. Short segment asymmetric dilatation of descending colon and sigmoid colon junction at left lower quadrant of abdomen, loaded with fecal matter and significant pericolic fat stranding with mild wall thickening. Pericolic extraluminal air is seen. Multiple tiny air foci are seen in the subcutaneous plane overlying the left lower quadrant. The appendix is not visualized. The aorta is normal in caliber. The urinary bladder is minimally filled. Pelvic viscera are grossly unremarkable. No aggressive appearing osseous lesions are identified. Small fat containing umbilical hernia, defect measures 8x7mm. IMPRESSION: 1. Diffuse colonic diverticulosis. 2. Short segment asymmetric dilatation of descending and sigmoid colon junction in the left lower quadrant of abdomen, loaded with fecal matter ,significant pericolic fat stranding with mild wall thickening and extraluminal air. There are multiple air foci in the subcutaneous plane overlying the left lower quadrant which may suggest recent surgery. The free localized air adjoining bowel loop may represent a contained large bowel perforation, could be due to underlying diverticulitis. New finding. Clinical correlation is recommended. 3. Bulky medial limb of left adrenal gland. New finding 4. Left post nephrectomy status with Ill defined fluid in left renal fossa. 5. Stable small fat containing umbilical hernia. 6. Stable Right paranephric fat stranding. 7. Interval development of bilateral mild pleural effusion. I personally reviewed ct scan images and concur with above findings. Per my personal review of the images there is no gross pneumoperitoneum. Contained perforation.
--- NOTE | 2024-08-09 09:32 | History & Physical Report ---
Date of Service August 09, 2024 Assessment & Plan (1) Large bowel perforation: (2) Acute blood loss anemia: (3) Bloody diarrhea: (4) Painless hematuria: Plan Torres is a pleasant 68-year-old male who recently underwent a left radical nephrectomy on 07/30. He presented on 08/09 for BRB in his stool overnight. A/P CT revealed a large contained bowel perforation. Coming in for monitoring/conservative measures. #Large bowel perforation A/P CT on arrival did reveal free localized area joining bowel loops which may represent a contained large bowel perforation In the setting of recent surgery, suspect this could be a post-op perforation Leukocytosis at 16.51 with a neutrophil predominance Afebrile on arrival, but patient does report intermittent low-grade fevers at home (up to 100 F) Mefoxin 2000 mg IV x 1 given in the ED BCx not obtained prior to abx administered; while not septic on arrival, BCx cancelled as likely sterilized Ceftriaxone 2000 mg IV q24h Metronidazole 500 mg IV q8h General Surgery consult appreciated Conservative measures for now NPO / Bowel rest IV pain control PRN IV antiemetics PRN IVF with NSS at 125 mL/hr x 2 days; please add on additional IVF as needed # Hematochezia/acute blood loss anemia Hgb 9.7 on arrival No signs of active bleeding on clinical exam However, patient endorses recurrence of bright red blood in his diarrhea while in the ED He also endorses new onset hematuria in the ED; "gordon red" urine Suspect hemoglobin will downtrend with IV fluids given patient is currently volume contracted/dehydrated Blood consent form obtained at bedside 1u pRBCs ordered, held Trend H&H #Hematuria Hand-assisted laparoscopic left radical nephrectomy on 07/30 Recurrence of hematuria in the ED Urology consult appreciated [facility]: [facility] Full code N.p.o./bowel rest VTE PPx: Hold chemical DVT PPx for now in the setting of BRB in stool/urine; SCDs History of Present Illness Chief Complaint: GI assessment, bloody diarrhea Primary Care Provider: Marito Zaman DO Torres is a pleasant 68-year-old male with PMH of 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 He presented on 08/09 for diarrhea and bright red blood in his stool. Recent [facility] admission from 07/28 08/03 for hematuria, urinary obstruction, and left renal mass. He underwent a radical left nephrectomy with Dr. Kc on 07/30. Patient reports he is okay since leaving the hospital, but has had loose stool ever since leaving the hospital. Last night, he went to bed around 8:30 PM, but around 11 PM, he had to use the restroom. He got up 3 times overnight and had diarrhea each time; noticed bright red blood in the stool that was progressively worsening. Diarrhea was liquidy in consistency. No prior history of C. difficile, per patient. Patient did not take any medicine prior to coming into the hospital. He reports that he only takes vitamins in the morning. No recent change in medications since leaving the hospital. Patient does have a history of abdominal surgeries; he had 6 inches taken from his colon due to diverticulitis. He reports he also has had his gallbladder and appendix removed. He does not use a CPAP at night or supplemental oxygen at baseline. No recent falls or injuries to the abdomen or pelvis. He does not ambulate with a walker or cane at baseline. No blood in his urine since his nephrectomy. Patient reports he does have an allergy to penicillins, whenever he takes it his throat becomes raw with bleeding. Patient denies smoking, tobacco use, recent alcohol use. Patient is hypertensive at 164/86 and tachypneic at 33rpm at time of admission. ED course: Zofran 4 mg IV NSS 500 mL IV x 2 Magnesium sulfate 1 g IV Cefoxitin 2000 mg IV ROS: Patient endorses intermittent low-grade fever last night (100 F), night-sweats (Monday night 08/07), and diarrhea with BRB in stool. Patient denies chills, dizziness, chest pain, chest palpitations, pleuritic CP, SOB, cough, abdominal pain, N/V, hematuria, burning with urination, pain with defecation, dysuria, saddle anesthesia, or lower back pain. Allergies Allergy/AdvReac Type Severity Reaction Status Date / Time amoxicillin [From Augmentin] Allergy Mild Throat Verified 08/08/24 11:07 bleeding clavulanic acid Allergy Mild throat Verified 08/08/24 11:07 [From Augmentin] bleeding Home Medications Medication Instructions Recorded Confirmed Type cholecalciferol (vitamin D3) 25 25 mcg PO DAILY 07/24/24 08/09/24 History mcg (1,000 unit) tablet (Vitamin D3) folic acid 800 mcg tablet 0.8 mg PO DAILY 07/24/24 08/09/24 History magnesium 250 mg tablet 250 mg PO DAILY 07/24/24 08/09/24 History multivitamin 1 tab PO DAILY 07/24/24 08/09/24 History potassium 99 mg tablet 99 mg PO DAILY 07/24/24 08/09/24 History tamsulosin 0.4 mg capsule 0.4 mg PO DAILY #30 caps 07/28/24 08/09/24 Rx acetaminophen 500 mg tablet 1,000 mg PO Q6H PRN Pain 08/08/24 08/09/24 History (Tylenol Extra Strength) Past Med/Surg History Problem List (Updated 08/09/24 @ 10:55 by Pedrito Francis PA-C) Acute blood loss anemia Painless hematuria "it comes and goes" Large bowel perforation Abnormal CT of the abdomen Bloody diarrhea (Acute) Lower extremity edema Single functional kidney Elevated fasting blood sugar Morbid obesity Clear cell carcinoma of left kidney Constipation Postoperative fever Hypothyroidism (acquired) (~1998) Elevated blood pressure reading in office without diagnosis of hypertension Medical History (Updated 08/09/24 @ 10:55 by Pedrito Francis PA-C) Diverticulitis Lumbar herniated disc History of hypothyroidism per chart, pt. [facility] [place] [facility] Hypertension History of diverticulitis Left kidney mass no biopsy Surgical History (Updated 08/08/24 @ 11:48 by Marito Zaman DO) H/O left nephrectomy 07/30/2024 History of open reduction and internal fixation (ORIF) procedure (1974) left arm History of partial colectomy (1998) 6 inches removed due to diverticulitis History of appendectomy Hx of cholecystectomy (~1998) Family History Denies family history of Ovarian cancer Prostate cancer Myocardial infarction Breast cancer Colorectal cancer Social History Smoking Status: Never smoker Second Hand Exposure: No; Do You Dip or Chew Tobacco: No; Hx Alcohol Use: Yes Alcohol Intake Frequency: Monthly or Less Alcohol Intake Frequency Comment: social Hx Substance Use: No Preferred Language: Korean Communication Ability: Effective Visual Impairment: No Limitations Hearing Ability: Normal Green Hide Inspector Required: No Beliefs That Will Affect Care: None marital status: Current Living Situation: Spouse current occupational status: employed How many Children do You have: 6 Feels Safe at Home: Yes Childhood Exposure to Second-Hand Smoke: No Diet: regular caffeine: Yes during the past year weight has: remained stable Dental Care, Regularly: No Physical Activity Frequency: Daily Seatbelt Use: always Sunscreen Use: Yes Assistive Devices: None Review of Systems Review of Systems: See HPI above Physical Exam Physical Exam: General: no acute distress; non-toxic appearing; well-nourished; cooperative; SpO2 98% on RA HEENT: normocephalic, atraumatic; no scleral icterus; PERRLA; vision and hearing intact Neck: supple; no lymphadenopathy; trachea midline Skin: warm, dry without signs of tenting; no cyanosis; no rashes, bruising, lesi ons, or erythema noted CV: chest wall NTP; RRR; S1/S2 normal; no murmurs/rubs/gallops; pulses intact and symmetric at radial, DP, and PT Lungs: no acute respiratory distress; symmetrical chest wall expansion; clear breath sounds across all lung ruiz w/o adventitious sounds; no wheezing ABD: Soft, NTP in all 4 quadrants; laparoscopic surgical scars are healing without signs of infection; BS present; no rebound/guarding; distention secondary to body habitus MSK: no tics or fasciculations; +2 pitting edema in the left lower extremity extending up to the knee; +1 pitting edema in the lower right lower extremity; neither extremity is erythematous Neuro: A&Ox3; normal mood and affect; fluent speech; no focal deficits; sensation intact and symmetric in the lower EXTR bilaterally Results & Data Results & Data Vital Signs (Past 12 Hours) Vital Signs Temp Pulse Pulse Resp BP BP Pulse Ox 08/09/24 08:00 76 33 H 98 08/09/24 07:36 73 23 96 08/09/24 07:24 74 20 94 08/09/24 06:30 81 18 164/86 H 95 08/09/24 05:18 85 20 166/89 H 93 08/09/24 05:14 83 18 93 08/09/24 04:56 87 08/09/24 04:32 36.6 C 92 H 18 142/72 H 95 O2 Del Method 08/09/24 08:00 Room Air 08/09/24 07:36 08/09/24 07:24 08/09/24 06:30 Room Air 08/09/24 05:18 Room Air 08/09/24 05:14 Room Air 08/09/24 04:56 08/09/24 04:32 Room Air Laboratory Results Abnormal lab results 08/09/24 08/09/24 08/09/24 Range/Units 04:53 04:58 08:01 WBC 16.51 H (4.8-10.8) K/ul RBC 3.35 L (4.70-6.10) M/uL Hgb 9.7 L (14.0-18.0) g/dl POC Hgb 9.9 L (14.0-18.0) g/dl Hct 30.4 L (42.0-52.0) % POC Hct 29 L (42-52) % MCHC 31.9 L (32.0-36.0) g/dL MPV 9.3 L (9.4-12.4) fL Neut # (Auto) 12.20 H (1.40-6.50) K/uL Ceiba # (Auto) 1.44 H (0.11-0.59) K/uL Immature Gran # (Auto) 0.34 H (0.01-0.20) K/uL POC Total CO2 23 L (24-31) mmol/L Creatinine 1.62 H (0.6-1.4) mg/dl POC Creatinine 1.8 H (0.6-1.3) mg/dl Glucose 147 H (70-99(Fasting)) mg/dl POC Glucose (other) 149 H (70-99) mg/dl Calcium 8.3 L (8.6-10.3) mg/dl POC Ioniz Calcium Darius 1.08 L (1.12-1.32) mmol/l Magnesium 2.5 H (1.7-2.4) mg/dl Albumin 2.9 L (3.4-5.0) gm/dl Globulin 4.3 H (2.5-4.0) gm/dl Albumin/Globulin Ratio 0.7 L (0.9-2) Urine Protein 1+ H (Negative) Diagnostic Findings Abdomen/Pelvis CT 08/09/24 04:55 EXAM: CT abd pelvis wo con CLINICAL HISTORY: Abd pain, diarrhea, recent nephrectomy TECHNIQUE: Contiguous axial images were obtained from the level of the diaphragm to the pubic symphysis without intravenous or oral contrast. Coronal and sagittal reconstructions were likewise performed and indicated to increase the sensitivity for detecting clinically relevant pathology. CT scan was performed according to ALARA (as low as reasonably achievable). 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 Evaluation of the abdominal and pelvic visceral organs is limited without intravenous contrast. The unenhanced liver, spleen, pancreas are grossly unremarkable. Post cholecystectomy status. Bulky medial limb of left adrenal gland. Left post nephrectomy status. Ill defined fluid in left renal fossa. Right kidney is normal in size and attenuation without obvious calcification. There is no hydronephrosis. Right paranephric fat stranding seen. The right ureter is normal in caliber. No adenopathy or fluid collections are seen. Multiple small diverticuli seen in entire large bowel. Short segment asymmetric dilatation of descending colon and sigmoid colon junction at left lower quadrant of abdomen, loaded with fecal matter and significant pericolic fat stranding with mild wall thickening. Pericolic extraluminal air is seen. Multiple tiny air foci are seen in the subcutaneous plane overlying the left lower quadrant. The appendix is not visualized. The aorta is normal in caliber. The urinary bladder is minimally filled. Pelvic viscera are grossly unremarkable. No aggressive appearing osseous lesions are identified. Small fat containing umbilical hernia, defect measures 8x7mm. IMPRESSION: 1. Diffuse colonic diverticulosis. 2. Short segment asymmetric dilatation of descending and sigmoid colon junction in the left lower quadrant of abdomen, loaded with fecal matter ,significant pericolic fat stranding with mild wall thickening and extraluminal air. There are multiple air foci in the subcutaneous plane overlying the left lower quadrant which may suggest recent surgery. The free localized air adjoining bowel loop may represent a contained large bowel perforation, could be due to underlying diverticulitis. New finding. Clinical correlation is recommended. 3. Bulky medial limb of left adrenal gland. New finding 4. Left post nephrectomy status with Ill defined fluid in left renal fossa. 5. Stable small fat containing umbilical hernia. 6. Stable Right paranephric fat stranding. 7. Interval development of bilateral mild pleural effusion. Electronically signed by Davide Stratton 08-09-2024 07:04 AM ECG Additional Comments: ECG reviewed NSR at 90 bpm; QTc 445 Code Status & VTE Plan Code Status Full code VTE Prophylaxis Plan VTE Prophylaxis will be ordered: Yes Supervising Physician Co-Signing Physician Notes Torres is a 68-year-old male with a past medical history of hypothyroidism and renal cell carcinoma s/p hand-assisted laparoscopic nephrectomy 07/30/2024 due to left kidney mass who was discharged 08/03/2024 and who returns to the ER 08/09/2024 with 1 week of bloody diarrhea. On ER evaluation CT shows short segment asymmetric dilation of the descending/sigmoid colon junction of the left lower quadrant to loaded with fecal matter and significant fat stranding with extraluminal air and multiple air foci in the subcutaneous plane overlying left lower quadrant suggesting recent surgery. Free localized area joining bowel loop may represent contained large bowel perforation. Stable right perinephric fat stranding noted. No abdominal pain. Hematochezia x1 day, hematuria x1 day. Case was reviewed by urology and general surgery. Recommended for medical admission. Contained distal descending/sigmoid colon perforation In the setting of recent nephrectomy 07/30/2024 With hematochezia x24 hours, hematuria while in the ER Leukocytosis 16 General Surgery consulted. If requiring intervention will need temporary colostomy. Recommended for conservative management with bowel rest, IV fluids, antibiotics and repeat CT at time of admission Urology consulted to follow for due to recent nephrectomy and recurrent hematuria Patient reports a throat swelling/bleeding allergy to penicillins. Received cefoxitin in the ER. Given continued bowel perforation leukocytosis will expand enteric coverage. Due to reported penicillin allergy but tolerance of cephalosporins will continue on ceftriaxone/Flagyl for now Strict n.p.o. H&H every 8 hours Normotensive, no tachycardia on admitting assessment Blood consent on file Blood cultures were ordered however antibiotics given prior to these likely sterilized and subsequently discontinued No other chronic medications. No longer takes Synthroid,Hypothyroidism resolved and T4 has been normal without supplementation PG Care Time/CCT Total # of Minutes Spent Total Time Spent with Patient: Total time spent is greater than 50% in coordination of care (as documented) at patient's floor/unit and/or counseling patient: Coding [place] [address] INT INP/OBS CARE 3/75MIN Patient Type Established Medical Decision Making High Complexity Diagnoses Large bowel perforation K63.1 Acute blood loss anemia D62 Bloody diarrhea R19.7 Painless hematuria R31.9
[2024-08-09] MEDS: SODIUM CHLORIDE 0.9% 1,000 ML IV SCH (10:40)
[2024-08-09] MEDS ORDERED: SODIUM CHLORIDE 0.9% 100 ML IV PRN (10:43)
--- NOTE | 2024-08-09 12:48 | Urology Consultation ---
Date of Consultation August 09, 2024 Assessment & Plan (1) Abnormal CT of the abdomen: (2) Bloody diarrhea: (3) Single functional kidney: (4) Clear cell carcinoma of left kidney: 68-year-old male who is 10 days status post hand-assisted left radical nephrectomy on 07/30/[address] Kc for left renal mass, pathology consistent with clear-cell carcinoma of left kidney. Postoperative course complicated with post op ileus, fever and leukocytosis. He presented to ED today for evaluation of bloody diarrhea. CT abdomen and pelvis without contrast concerning for contained perforation of the distal descending/sigmoid colon. Patient currently afebrile, hemodynamically stable Labs reviewedcreatinine 1.62, WBC 16.51, hemoglobin 9.7 Patient subjectively feeling well Examined patient in ED with [facility] to general surgery for management of bowel perforation No acute intervention at this time He is voiding spontaneously, UA not suggestive of infection, surgical incisions appropriate will follow History of Present Illness Reason for Consultation: Suspected post-op perforation + hematuria Attending Physician: Carlos Ramirez MD History of Present Illness This is a 68-year-old male with past medical history including history of diverticulitis, partial colectomy, gross hematuria and left renal mass status post hand-assisted left radical nephrectomy with Dr. Kc on 07/30/2024. Postoperative course included postop ileus, fever and leukocytosis, but eventually was discharged on 08/03/2024. He presented to the emergency department today for evaluation of bloody diarrhea starting yesterday. On arrival to ED, he was afebrile and hemodynamically stable. Lab work showed WBC 16.51, hemoglobin 9.7, creatinine 1.62. Urinalysis showed 1+ protein, otherwise unremarkable. Workup included CT abdomen pelvis which showed concern for a contained large bowel perforation. Urology and general surgery are consulted for further evaluation. Patient seen and examined in the emergency department this morning with general [facility]. present. Patient reports he was doing well after hospital discharge until 2 days ago when he developed fever of 101 with sweats. He noted bloody diarrhea yesterday evening, bright red blood upon wiping. He denies persistent fevers. No abdominal pain, nausea or vomiting. He is voiding without difficulty. Denies hematuria. History of diverticulitis and partial colectomy in 1998. Allergies Allergy/AdvReac Type Severity Reaction Status Date / Time amoxicillin [From Augmentin] Allergy Mild Throat Verified 08/08/24 11:07 bleeding clavulanic acid Allergy Mild throat Verified 08/08/24 11:07 [From Augmentin] bleeding Home Medications Medication Instructions Recorded Confirmed Type cholecalciferol (vitamin D3) 25 25 mcg PO DAILY 07/24/24 08/09/24 History mcg (1,000 unit) tablet (Vitamin D3) folic acid 800 mcg tablet 0.8 mg PO DAILY 07/24/24 08/09/24 History magnesium 250 mg tablet 250 mg PO DAILY 07/24/24 08/09/24 History multivitamin 1 tab PO DAILY 07/24/24 08/09/24 History potassium 99 mg tablet 99 mg PO DAILY 07/24/24 08/09/24 History tamsulosin 0.4 mg capsule 0.4 mg PO DAILY #30 caps 07/28/24 08/09/24 Rx acetaminophen 500 mg tablet 1,000 mg PO Q6H PRN Pain 08/08/24 08/09/24 History (Tylenol Extra Strength) Patient History Medical History Diverticulitis Lumbar herniated disc History of hypothyroidism per chart, pt. states [facility] [place] [facility]" Hypertension History of diverticulitis Left kidney mass no biopsy Surgical History H/O left nephrectomy 07/30/2024 History of open reduction and internal fixation (ORIF) procedure (1974) left arm History of partial colectomy (1998) 6 inches removed due to diverticulitis History of appendectomy Hx of cholecystectomy (~1998) Family History Denies family history of Ovarian cancer Prostate cancer Myocardial infarction Breast cancer Colorectal cancer Social History Smoking Status: Never smoker Second Hand Exposure: No; Do You Dip or Chew Tobacco: No; Hx Alcohol Use: No Hx Substance Use: No Preferred Language: Mauritanian Communication Ability: Effective Visual Impairment: No Limitations Hearing Ability: Normal 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 Beliefs That Will Affect Care: None marital status: Current Living Situation: Spouse Current Living Situation Comment: 2 story house with current occupational status: employed How many Children do You have: 6 Feels Safe at Home: Yes Safety Concerns: Feels Safe At This Time Childhood Exposure to Second-Hand Smoke: No Diet: regular caffeine: Yes during the past year weight has: remained stable Dental Care, Regularly: No Physical Activity Frequency: Daily Seatbelt Use: always Sunscreen Use: Yes Assistive Devices: Denture - Upper and Glasses Review of Systems Review of Systems: All systems reviewed & are unremarkable except as noted in HPI & below Physical Exam Constitutional: well developed and well nourished; no acute distress Respiratory: normal respiratory effort; no respiratory distress and no labored breathing Gastrointestinal (Abdomen): Inspection/Auscultation: abdomen normal to inspection; abdomen not distended Percussion/Palpation: abdomen soft; no guarding and abdomen not firm Musculoskeletal: Head/Neck/Chest: normocephalic Skin: Surgical incisions C/D/I with dermabond Neurologic: moves all extremities and awake Psychiatric: Orientation: alert and oriented x 3 Results & Data Vital Signs (Past 12 Hours) Vital Signs Temp Pulse Pulse Pulse Resp BP BP 08/09/24 12:37 08/09/24 12:37 36.6 C 81 163/74 H 08/09/24 12:00 65 23 165/88 H 08/09/24 08:00 76 33 H 08/09/24 07:36 73 23 08/09/24 07:24 74 20 08/09/24 06:30 81 18 164/86 H 08/09/24 05:18 85 20 166/89 H 08/09/24 05:14 83 18 08/09/24 04:56 87 08/09/24 04:32 36.6 C 92 H 18 142/72 H Pulse Ox Pulse Ox O2 Del Method O2 Del Method 08/09/24 12:37 95 Room Air 08/09/24 12:37 95 Room Air 08/09/24 12:00 94 08/09/24 08:00 98 Room Air 08/09/24 07:36 96 08/09/24 07:24 94 08/09/24 06:30 95 Room Air 08/09/24 05:18 93 Room Air 08/09/24 05:14 93 Room Air 08/09/24 04:56 08/09/24 04:32 95 Room Air PG Care Time/CCT Total # of Minutes Spent Total Time Spent with Patient: Total time spent is greater than 50% in coordination of care (as documented) at patient's floor/unit and/or counseling patient: Coding Level of Care Code 45316 INT INP/OBS CARE 3/75MIN Diagnoses Abnormal CT of the abdomen R93.5 Bloody diarrhea R19.7 Single functional kidney Z90.5 Clear cell carcinoma of left kidney C64.2
[2024-08-09] MEDS: metroNIDAZOLE 500 MG/100 ML BAG IV ONE (13:09)
[2024-08-09] MEDS: cefTRIAXone SODIUM 2,000 MG/50 ML BAG IV SCH (14:14)
--- NOTE | 2024-08-09 14:17 | Electrocardiogram Report ---
Test Reason : Blood Pressure : */* mmHG Vent. Rate : 90 BPM Atrial Rate : 90 BPM P-R Int : 132 ms QRS Dur : 86 ms QT Int : 364 ms P-R-T Axes : 11 -36 32 degrees QTcB Int : 445 ms Normal sinus rhythm Left axis deviation Low voltage QRS Poor R wave progression, consider anterior NM vs. lead placement vs. LVH Abnormal ECG When compared with ECG of 23-Jul-2024 10:54, No significant change was found Confirmed by Shane Garduno ([id number]) on 08/09/2024 2:17:03 PM Referred By: REFERRED SELF Confirmed By: Shane Garduno
[2024-08-09 14:47] LABS: Hematocrit (blood only) 26.2 % (42.0-52.0); Hemoglobin 8.3 g/dl (14.0-18.0)
[2024-08-09] MEDS: metroNIDAZOLE 500 MG/100 ML BAG IV SCH (19:54)
[2024-08-09 20:23] LABS: Hematocrit (blood only) 25.6 % (42.0-52.0); Hemoglobin 8.2 g/dl (14.0-18.0)
[2024-08-09] MEDS: ONDANSETRON INJ 2 MG/ML 2 ML VIAL IV PRN (21:54)
[2024-08-09] MEDS: ACETAMINOPHEN 1,000 MG/100 ML VIAL IV PRN (22:46)
[2024-08-10 07:05] LABS: Basophils # (auto) 0.03 K/uL (0.00-0.20); Basophils % (auto) 0.2 %; Eosinophils # (auto) 0.27 K/uL (0.00-0.50); Eosinophils % (auto) 2.2 %; Hematocrit (blood only) 26.2 % (42.0-52.0); Hemoglobin 8.2 g/dl (14.0-18.0); Immature Granulocytes # (auto) 0.31 K/uL (0.01-0.20); Immature Granulocytes % (auto) 2.5 %; Lymphocytes % (auto) 10.7 %; Mean Corpuscular Hemoglobin 29.2 pg (25.0-34.0); Mean Corpuscular Hgb Conc 31.3 g/dL (32.0-36.0); Mean Corpuscular Volume 93.2 fL (80.0-100.0); Mean Platelet Volume 9.1 fL (9.4-12.4); Monocytes # (auto) 1.36 K/uL (0.11-0.59); Monocytes % (auto) 11.2 %; Neutrophils # (auto) 8.91 K/uL (1.40-6.50); Neutrophils % (auto) 73.2 %; Platelet Count 387 K/uL (130-400); RDW Coefficient of Variation 13.6 % (11.5-14.5); RDW Standard Deviation 47.6 fL (36.4-46.3); Red Blood Count 2.81 M/uL (4.70-6.10); White Blood Count 12.18 K/ul (4.8-10.8)
[2024-08-10 07:25] LABS: BUN Creatinine Ratio 12.2 (10-20); Calcium 7.5 mg/dl (8.6-10.3); Creatinine Clr Calc Pharmacy 52.9 ml/min; Magnesium 2.4 mg/dl (1.7-2.4); Potassium 3.9 mmol/L (3.5-5.1)
[2024-08-10] MEDS: PLASMA-LYTE A 1,000 ML IV SCH (08:02)
--- NOTE | 2024-08-10 08:28 | Urology Progress Note ---
Date of Service August 10, 2024 Assessment & Plan (1) Bloody diarrhea: (2) Clear cell carcinoma of left kidney: Plan 68-year-old male who is 10 days status post hand-assisted left radical nephrectomy on 07/30/[address] Kc for left renal mass, pathology consistent with clear-cell carcinoma of left kidney. Postoperative course complicated with post op ileus, fever and leukocytosis. He presented to ED today for evaluation of bloody diarrhea. CT abdomen and pelvis without contrast concerning for contained perforation of the distal descending/sigmoid colon. Defer to general surgery for diet advancement and management of potential bowel injury No intervention from a urologic perspective necessary Urology to follow Admission and Anticipated Discharge Date Admission Date: August 09, 2024 Subjective Afebrile with stable vitals this morning. Labs show white blood cell count of 12.1, down from 16.5. Hemoglobin stable at 8.2. Creatinine 1.47, down from 1.62. Reports feeling better today. Reports hematochezia has stopped. Having mild left sided abdominal pain. Physical Exam Physical Exam: General: Alert and oriented, no acute distress HEENT: Normocephalic, mucous membranes moist Pulmonary: Nonlabored respirations Abdomen: Incisions clean dry and intact. Mildly distended, mildly tender over left side, nonperitonitic Extremities: Moves all 4 spontaneously Neuro: No gross deficits Skin: Warm, dry, no rashes noted Results & Data Vital Signs (Past 12 Hours) Vital Signs Temp Pulse Pulse Pulse Resp BP Pulse Ox 08/10/24 07:38 36.4 C L 72 18 138/70 97 08/10/24 01:27 36.9 C 82 16 125/75 94 08/09/24 22:37 37.6 C H 85 18 134/69 93 08/09/24 21:51 100 H 08/09/24 21:09 O2 Del Method 08/10/24 07:38 Room Air 08/10/24 01:27 Room Air 08/09/24 22:37 Room Air 08/09/24 21:51 08/09/24 21:09 Room Air PG Care Time/CCT Total # of Minutes Spent Total Time Spent with Patient: Total time spent is greater than 50% in coordination of care (as documented) at patient's floor/unit and/or counseling patient: Coding Level of Care Code 98832 SUB INP/OBS CARE 2/35MIN Diagnoses Bloody diarrhea R19.7 Clear cell carcinoma of left kidney C64.2
--- NOTE | 2024-08-10 11:06 | Surgery Progress Note ---
Date of Service August 10, 2024 Assessment & Plan (1) Bloody diarrhea: (2) Clear cell carcinoma of left kidney: (3) Abnormal CT of the abdomen: Plan 68 yo male who is 10 days s/p hand assisted left radical nephrectomy for left renal carcinoma presented to ED with bloody diarrhea. CT scan of abdomen and pelvis wo contrast showing contained perforation of the distal descending/sigmoid colon with associated pericolonic stranding. leukocytosis of 16k, afebrile, bloody diarrhea started last evening. History of diverticulitis with sigmoid colon resection in 1998. Abdominal examination with mild tenderness in LLQ but no peritonitis or rigidity, hemodynamically stable. Pos toperative course from nephrectomy complicated with elevated wbc and ileus. Plan: Continue conservative management with npo for bowel rest, iv fluids iv antibiotics and possibly repeating ct scan with oral or rectal contrast in next few days. may advance to clear liquid diet Continuing to monitor Admission and Anticipated Discharge Date Admission Date: August 09, 2024 Subjective Doing well this morning. Denies any significant pain except at the incisions. Denies nausea or vomiting. He has been up and moving around. He states that the bloody bowel movements have stopped. He still has loose stools but there is no blood. Physical Exam Gastrointestinal (Abdomen): Inspection/Auscultation: + abdominal surgical scar (left paramedian scar, laparoscopic scars) and + abdominal surgical incision (laparoscopic left lower quadrant transverse scar) Percussion/Palpation: + abdomen tender (mild in the LLQ on deep palpation) and abdomen soft; no guarding, abdomen not rigid and abdomen not firm Results & Data Vital Signs (Past 12 Hours) Vital Signs Temp Pulse Pulse Resp BP Pulse Ox O2 Del Method 08/10/24 07:38 36.4 C L 72 18 138/70 97 Room Air 08/10/24 01:27 36.9 C 82 16 125/75 94 Room Air
--- NOTE | 2024-08-10 11:40 | Hospitalist Progress Note ---
Date of Service August 10, 2024 Assessment & Plan (1) Large bowel perforation: (2) Acute blood loss anemia: (3) Bloody diarrhea: (4) Painless hematuria: Plan Torres is a pleasant 68-year-old male who recently underwent a left radical nephrectomy on 07/30. He presented on 08/09 for BRB in his stool overnight. A/P CT revealed a large contained bowel perforation. Coming in for monitoring/conservative measures. #Large bowel perforation CTA/P with contained large bowel perforation in the setting of recent nephrectomy Leukocytosis at 16.51 with a neutrophil predominance Antibiotic expanded to Rocephin/Flagyl which are continued Progressing well, no pain 08/10 Advance to clears Surgery following Continue IV FM until patient has steady p.o. intake No indication for surgical intervention at time of reassessment # Hematochezia/acute blood loss anemia Hgb 9.7 on arrival But red blood per rectum prior to arrival Bowel movements have firmed up, no longer bloody/melanic Hemoglobin stable on multiple measurements Follow clinically #Hematuria Hand-assisted laparoscopic left radical nephrectomy on 07/30 No acute indication for intervention Follow clinically Disposition: Admit to [facility] telemetry Full code Advance to clears, home meds resumed VTE PPx: SCDs. Pharmacal prophylaxis initially held due to hematochezia and hematuria which is improving. If no further bleeding over next 12-24 hours, start Lovenox versus heparin subcu Admission and Anticipated Discharge Date Admission Date: August 09, 2024 Subjective Seen at the bedside this morning. Sit up in the chair. Denies pain other than at his surgical incision site but otherwise feels "great, if I won million bucks you guys should get some because I feel like it ". He is eager to use a shower no lightheadedness or dizziness and has been ambulating independently. Stools are firmer and brown without ongoing bleeding/melena. Physical Exam Physical Exam: General: A&Ox3. NAD. Cooperative. HEENT: Atraumatic, normocephalic. Vision and hearing grossly intact Pulm: CTAB A&P. -wheezes, -rales, -rhonchi. Symmetrical chest rise. No increase in work of breathing. No respiratory distress. Cardiac: RRR, -mrg. Radial pulses intact and symmetrical. Abdominal: Appropriately tender at abdominal incisions otherwise softly distended, nontender, no rebound/guarding Results & Data Results & Data Vital Signs (Past 12 Hours) Vital Signs Temp Pulse Pulse Resp BP Pulse Ox O2 Del Method 08/10/24 07:38 36.4 C L 72 18 138/70 97 Room Air 08/10/24 01:27 36.9 C 82 16 125/75 94 Room Air PG Care Time/CCT Total # of Minutes Spent Total Time Spent with Patient: Total time spent is greater than 50% in coordination of care (as documented) at patient's floor/unit and/or counseling patient: Coding Level of Care Code 31599 SUB INP/OBS CARE 3/50MIN Diagnoses Large bowel perforation K63.1 Acute blood loss anemia D62 Bloody diarrhea R19.7 Painless hematuria R31.9
[2024-08-11 07:08] LABS: Basophils # (auto) 0.03 K/uL (0.00-0.20); Basophils % (auto) 0.2 %; Eosinophils # (auto) 0.33 K/uL (0.00-0.50); Eosinophils % (auto) 2.6 %; Hematocrit (blood only) 25.2 % (42.0-52.0); Hemoglobin 7.9 g/dl (14.0-18.0); Immature Granulocytes % (auto) 1.6 %; Lymphocytes # (auto) 1.35 K/uL (1.20-3.40); Lymphocytes % (auto) 10.6 %; Mean Corpuscular Hemoglobin 29.2 pg (25.0-34.0); Mean Corpuscular Hgb Conc 31.3 g/dL (32.0-36.0); Mean Platelet Volume 9.1 fL (9.4-12.4); Monocytes # (auto) 1.71 K/uL (0.11-0.59); Monocytes % (auto) 13.5 %; Neutrophils # (auto) 9.08 K/uL (1.40-6.50); Neutrophils % (auto) 71.5 %; Platelet Count 377 K/uL (130-400); RDW Coefficient of Variation 13.7 % (11.5-14.5); RDW Standard Deviation 47.4 fL (36.4-46.3); Red Blood Count 2.71 M/uL (4.70-6.10)
[2024-08-11 07:29] LABS: BUN Creatinine Ratio 9.5 (10-20); Calcium 7.3 mg/dl (8.6-10.3); Creatinine Clr Calc Pharmacy 57.9 ml/min; Potassium 3.9 mmol/L (3.5-5.1)
[2024-08-11 07:43] LABS: Polychromasia 1+
[2024-08-11] MEDS: FOLIC ACID 400 MCG TAB PO SCH (08:04)
[2024-08-11] MEDS: MULTIVITAMIN TAB PO SCH (08:04)
[2024-08-11] MEDS: CHOLECALCIFEROL 25 MCG (1000 UNITS) TAB PO SCH (08:04)
[2024-08-11] MEDS: TAMSULOSIN HCL 0.4 MG CAP PO SCH (08:05)
[2024-08-11] MEDS: MAGNESIUM OXIDE 400 MG TAB PO SCH (08:05)
--- NOTE | 2024-08-11 08:56 | Urology Progress Note ---
Date of Service August 11, 2024 Assessment & Plan (1) Bloody diarrhea: (2) Clear cell carcinoma of left kidney: Plan 68-year-old male who is 10 days status post hand-assisted left radical nephrectomy on 07/30/[address] Kc for left renal mass, pathology consistent with clear-cell carcinoma of left kidney. Postoperative course complicated with post op ileus, fever and leukocytosis. He presented to ED today for evaluation of bloody diarrhea. CT abdomen and pelvis without contrast concerning for contained perforation of the distal descending/sigmoid colon. Defer to general surgery for diet advancement and management of potential bowel injury No intervention from a urologic perspective necessary Urology to follow Admission and Anticipated Discharge Date Admission Date: August 09, 2024 Subjective Afebrile with stable vitals. Labs shows a stable white count of 12.7, stable hemoglobin of 7.9, downtrending creatinine of 1.37. Patient was given a clear liquid diet by general surgery yesterday. Physical Exam Physical Exam: General: Alert and oriented, no acute distress HEENT: Normocephalic, mucous membranes moist Pulmonary: Nonlabored respirations Abdomen: Mildly distended, nontender, nonperitonitic Extremities: Moves all 4 spontaneously Neuro: No gross deficits Skin: Warm, dry, no rashes noted Results & Data Vital Signs (Past 12 Hours) Vital Signs Temp Pulse Pulse Resp BP Pulse Ox O2 Del Method 08/11/24 07:22 64 08/11/24 06:44 36.7 C 70 18 142/80 H 94 Room Air 08/11/24 01:39 37.5 C 77 18 145/81 H 96 Room Air 08/10/24 22:06 37.2 C 74 16 157/80 H 94 Room Air 08/10/24 21:48 102 H PG Care Time/CCT Total # of Minutes Spent Total Time Spent with Patient: Total time spent is greater than 50% in coordination of care (as documented) at patient's floor/unit and/or counseling patient: Coding Level of Care Code 25661 SUB INP/OBS CARE 2/35MIN Diagnoses Bloody diarrhea R19.7 Clear cell carcinoma of left kidney C64.2
[2024-08-11] MEDS ORDERED: NON-FORMULARY MEDICATION (Potassium 99 mg Tablet) PO SCH (09:00)
[2024-08-11 09:37] LABS: Ferritin 643.6 ng/ml (8-388)
[2024-08-11 10:01] LABS: Folate (Folic Acid),Ser orPlas > 22.30 ng/ml (>5.38)
[2024-08-11 10:02] LABS: Vitamin B12 698 pg/ml (180-914)
--- NOTE | 2024-08-11 10:54 | Surgery Progress Note ---
Date of Service August 11, 2024 Assessment & Plan (1) Bloody diarrhea: (2) Clear cell carcinoma of left kidney: (3) Abnormal CT of the abdomen: Plan 68 yo male who is 10 days s/p hand assisted left radical nephrectomy for left renal carcinoma presented to ED with bloody diarrhea. CT scan of abdomen and pelvis wo contrast showing contained perforation of the distal descending/sigmoid colon with associated pericolonic stranding. leukocytosis of 16k, afebrile, bloody diarrhea started last evening. History of diverticulitis with sigmoid colon resection in 1998. Abdominal examination with mild tenderness in LLQ but no peritonitis or rigidity, hemodynamically stable. Pos toperative course from nephrectomy complicated with elevated wbc and ileus. Plan: Continue conservative management with iv antibiotics may advance to Full liquid diet we will plan for CT scan with oral and possible IV contrast tomorrow Admission and Anticipated Discharge Date Admission Date: August 09, 2024 Subjective Continues to feel well. Denies any pain or tenderness. Is having normal bowel movements without blood. No nausea or vomiting. Physical Exam Gastrointestinal (Abdomen): Inspection/Auscultation: + abdominal surgical scar (left paramedian scar, laparoscopic scars) and + abdominal surgical incision (laparoscopic left lower quadrant transverse scar) Percussion/Palpation: + abdomen tender (mild in the LLQ on deep palpation) and abdomen soft; no guarding, abdomen not rigid and abdomen not firm Results & Data Vital Signs (Past 12 Hours) Vital Signs Temp Pulse Pulse Resp BP Pulse Ox O2 Del Method 08/11/24 07:22 64 08/11/24 06:44 36.7 C 70 18 142/80 H 94 Room Air 08/11/24 01:39 37.5 C 77 18 145/81 H 96 Room Air
--- NOTE | 2024-08-11 11:34 | Hospitalist Progress Note ---
Date of Service August 11, 2024 Assessment & Plan (1) Large bowel perforation: (2) Acute blood loss anemia: (3) Bloody diarrhea: (4) Painless hematuria: Plan Torres is a pleasant 68-year-old male who recently underwent a left radical nephrectomy on 07/30. He presented on 08/09 for BRB in his stool overnight. A/P CT revealed a large contained bowel perforation. Coming in for monitoring/conservative measures. #Large bowel perforation CTA/P with contained large bowel perforation in the setting of recent nephrectomy Leukocytosis at 16.51 with a neutrophil predominance, stable on 08/11. No fever/chills/sweats Rocephin/Flagyl continued on Progressing well, diet advanced to full liquids 08/[address] with IV and oral contrast 08/11 # Hematochezia/acute blood loss anemia Hgb 9.7 on arrival Some bright red blood per rectum initially, this has resolved Hemoglobin 7.9, slight downtrend although overall stable within 0.5 g/dL. Iron studies show elevated ferritin likely as an acute phase reactant in the setting of inflammation, transferrin saturation is low at 12%. Recommend following repeat ferritin as outpatient and would benefit from IV iron therapy however will defer this with acute leukocytosis with large bowel perforation. If hemoglobin less than 7, symptomatic anemia, or evidence of impaired perfusion then transfuse 1 unit. #Hematuria Hand-assisted laparoscopic left radical nephrectomy on 07/30 No acute indication for intervention Urology following, anticipate outpatient follow-up at this time [facility]: [facility] Full code Full liquids VTE PPx: SCDs. Once hemoglobin uptrending start heparin/Lovenox Admission and Anticipated Discharge Date Admission Date: August 09, 2024 Temo Macdonald is seen at the bedside. He reports he feels "great "and is in good spirits. He reports he has no pain at all is eager to have his diet advanced and overall feels good. He talked to urology this morning who feel he is doing well and had no ongoing concerns. Primary concern is his contained perforation with ongoing monitoring and recommendations from surgical team. He has not had any fevers chills or sweats overnight. He is passing gas. Small bowel movement which she describes as dense but not hard and not liquid/loose. No blood. Hopeful to advance to full liquids today Physical Exam Physical Exam: General: A&Ox3. NAD. Cooperative. HEENT: Atraumatic, normocephalic. Vision and hearing grossly intact Pulm: CTAB A&P. -wheezes, -rales, -rhonchi. Symmetrical chest rise. No increase in work of breathing. No respiratory distress. Cardiac: RRR, -mrg. Radial pulses intact and symmetrical. Abdominal: Appropriately tender at abdominal incisions otherwise softly distended, nontender, no rebound/guarding Results & Data Results & Data Vital Signs (Past 12 Hours) Vital Signs Temp Pulse Pulse Resp BP Pulse Ox O2 Del Method 08/11/24 07:22 64 08/11/24 06:44 36.7 C 70 18 142/80 H 94 Room Air 08/11/24 01:39 37.5 C 77 18 145/81 H 96 Room Air PG Care Time/CCT Total # of Minutes Spent Total Time Spent with Patient: Total time spent is greater than 50% in coordination of care (as documented) at patient's floor/unit and/or counseling patient: Coding Level of Care Code 96580 SUB INP/OBS CARE 3/50MIN Diagnoses Large bowel perforation K63.1 Acute blood loss anemia D62 Bloody diarrhea R19.7 Painless hematuria R31.9
[2024-08-11] MEDS: MELATONIN 3 MG TAB PO PRN (21:04)
[2024-08-12 06:57] LABS: Basophils # (auto) 0.04 K/uL (0.00-0.20); Basophils % (auto) 0.3 %; Eosinophils # (auto) 0.35 K/uL (0.00-0.50); Eosinophils % (auto) 2.4 %; Hemoglobin 8.7 g/dl (14.0-18.0); Immature Granulocytes # (auto) 0.18 K/uL (0.01-0.20); Immature Granulocytes % (auto) 1.2 %; Lymphocytes % (auto) 9.6 %; Mean Corpuscular Hemoglobin 28.7 pg (25.0-34.0); Mean Corpuscular Hgb Conc 31.1 g/dL (32.0-36.0); Mean Corpuscular Volume 92.4 fL (80.0-100.0); Mean Platelet Volume 9.1 fL (9.4-12.4); Monocytes # (auto) 1.81 K/uL (0.11-0.59); Monocytes % (auto) 12.4 %; Neutrophils # (auto) 10.81 K/uL (1.40-6.50); Neutrophils % (auto) 74.1 %; Platelet Count 430 K/uL (130-400); RDW Coefficient of Variation 13.6 % (11.5-14.5); RDW Standard Deviation 46.1 fL (36.4-46.3); Red Blood Count 3.03 M/uL (4.70-6.10); White Blood Count 14.59 K/ul (4.8-10.8)
[2024-08-12 07:27] LABS: BUN Creatinine Ratio 8.1 (10-20); Calcium 7.8 mg/dl (8.6-10.3)
--- NOTE | 2024-08-12 10:07 | Urology Progress Note ---
Date of Service August 12, 2024 Assessment & Plan (1) Abnormal CT of the abdomen: (2) Clear cell carcinoma of left kidney: (3) Bloody diarrhea: Plan 68-year-old male who is status post hand-assisted left radical nephrectomy on 07/30/[address] Kc for left renal mass, pathology consistent with clear-cell carcinoma of left kidney. Postoperative course complicated with post op ileus, fever and leukocytosis. He presented to ED on 08/09 for evaluation of bloody diarrhea. CT abdomen and pelvis without contrast concerning for contained perforation of the distal descending/sigmoid colon. Afebrile, hemodynamically stable Labs reviewedcreatinine 1.36, WBC slightly increased from prior (14.59), hemoglobin 8.7 Patient subjectively doing well, tolerating full liquid diet Defer to general surgery for diet advancement and management of bowel perforation No intervention from perspective Urology to follow Admission and Anticipated Discharge Date Admission Date: August 09, 2024 Subjective Patient seen and examined at bedside this morning. He is awake and ambulating. Tolerating full liquid diet. No nausea or vomiting. Denies abdominal pain. Reports he is having regular bowel movements, denies visible blood in stool. Voiding without difficulty. No fever or chills. Review of Systems Constitutional: as per Subjective / HPI Genitourinary: + as per Subjective / HPI Physical Exam Physical Exam: General: Alert and oriented, no acute distress HEENT: Normocephalic, mucous membranes moist Pulmonary: Nonlabored respirations Abdomen: Mildly distended, nontender, nonperitonitic Extremities: Moves all 4 spontaneously Neuro: No gross deficits Skin: Warm, dry, no rashes noted; surgical incisions appropriate Results & Data Vital Signs (Past 12 Hours) Vital Signs Temp Pulse Pulse Pulse Resp BP Pulse Ox 08/12/24 09:43 149/76 H 08/12/24 07:12 37 C 71 20 154/78 H 94 08/12/24 07:03 70 08/12/24 02:40 37.1 C 74 18 178/90 H 94 08/11/24 22:34 37.2 C 73 18 163/78 H 94 O2 Del Method 08/12/24 09:43 08/12/24 07:12 Room Air 08/12/24 07:03 08/12/24 02:40 Room Air 08/11/24 22:34 Room Air PG Care Time/CCT Total # of Minutes Spent Total Time Spent with Patient: Total time spent is greater than 50% in coordination of care (as documented) at patient's floor/unit and/or counseling patient: Coding Level of Care Code 19865 SUB INP/OBS CARE 1/25MIN Diagnoses Abnormal CT of the abdomen R93.5 Clear cell carcinoma of left kidney C64.2 Bloody diarrhea R19.7
--- NOTE | 2024-08-12 10:55 | Surgery Progress Note ---
<Statement entered by Nilesh Rojas, DO - 08/12/24 10:56> I have seen and examined this patient with the surgical PA. I agree with this plan Date of Service August 12, 2024 Assessment & Plan (1) Large bowel perforation: Plan: Patient s/p L nephrectomy on 07/30 now admitted since 08/09 with concern for contained descending/sigmoid perforation on CT scan related to diverticulitis vs surgery Pt has done well throughout the wknd with conservative management. Vitals stable, no fevers or tachycardia, stable BPs Today's WBC up a little from yesterday 14 (12), Hbg 8.2 The patient continues to feel well. No pain, nausea/vomiting. He is passing gas and BMs without blood. He is tolerating a full liquid diet Given WBC uptrended today, would continue on fulls and continue IV abx Plan to repeat CT scan tomorrow if WBC bumps again. If downtrends hopefully we can start low fiber and plan on dispo in near future Pt seen/examined with dr. rojas Admission and Anticipated Discharge Date Admission Date: August 09, 2024 Subjective Patient reports feeling well. No abdominal pain, nausea/vomiting. He is tolerating full liquids. He is passing gas and BM's, denies any blood in BMs. Physical Exam Physical Exam: awake/alert, no distress Respiratory: normal respiratory effort Gastrointestinal (Abdomen): Percussion/Palpation: abdomen soft; abdomen nontender Results & Data Vital Signs (Past 12 Hours) Vital Signs Temp Pulse Pulse Pulse Resp BP Pulse Ox 08/12/24 09:43 149/76 H 08/12/24 07:12 98.6 F 71 20 154/78 H 94 08/12/24 07:03 70 08/12/24 02:40 98.8 F 74 18 178/90 H 94 O2 Del Method 08/12/24 09:43 08/12/24 07:12 Room Air 08/12/24 07:03 08/12/24 02:40 Room Air PG Care Time/CCT Total # of Minutes Spent Total Time Spent with Patient: Total time spent is greater than 50% in coordination of care (as documented) at patient's floor/unit and/or counseling patient: Coding Level of Care Code 32169 SUB INP/OBS CARE 06/08MIN Diagnoses Large bowel perforation K63.1
--- NOTE | 2024-08-12 10:57 | Hospitalist Progress Note ---
Date of Service August 12, 2024 Assessment & Plan (1) Large bowel perforation: (2) Acute blood loss anemia: (3) Bloody diarrhea: (4) Painless hematuria: Plan Torres is a pleasant 68-year-old male who recently underwent a left radical nephrectomy on 07/30. He presented on 08/09 for BRB in his stool overnight. A/P- CT revealed a large contained bowel perforation. Did not require surgical intervention, is admitted for monitoring. #Large bowel perforation CTA/P with contained large bowel perforation in the setting of recent nephrectomy Leukocytosis at 16.51 with a neutrophil predominance, stable on 08/11, slight uptrend at 3 08/12 but remains clinically well with no pain and no fever/chills/sweats. Tolerating a full liquid diet well Rocephin/Flagyl continued Surgery following. Will reevaluate white count in the morning possible CTA/P with oral contrast tomorrow versus outpatient. # Hematochezia/acute blood loss anemia Hgb 9.7 on arrival Some bright red blood per rectum initially, this has resolved Hemoglobin 7.9, slight downtrend although overall stable within 0.5 g/dL. Iron studies show elevated ferritin likely as an acute phase reactant in the setting of inflammation, transferrin saturation is low at 12%. Recommend following repeat ferritin as outpatient and would benefit from IV iron therapy however will defer this with acute leukocytosis with large bowel perforation. Hemoglobin uptrending 08/12, no acute indication for transfusion. No bleeding last 24 hours #Hematuria Hand-assisted laparoscopic left radical nephrectomy on 07/30 No acute indication for intervention Urology following, anticipate outpatient follow-up at this time Disposition: Admit to [facility] telemetry Full code Full liquids VTE PPx: SCDs. Hemoglobin uptrending. Patient is stable. No bleeding last >24 hours. He has ongoing hospitalization, stasis and is with acute inflammatory state with increased risk for DVT will start DVT prophylaxis with heparin subcu, and if remains stable transition to Lovenox tomorrow Admission and Anticipated Discharge Date Admission Date: August 09, 2024 Subjective Seen at the bedside. Patient is pleasant, reports he feels well, and joking with his family at the bedside. No fevers chills or sweats. Continues to have wet bowel movements but which are not loose/liquid and denies constipation. No blood/melena. His abdominal incisions continue to feel well and he has no abdominal pain. He is tolerating full liquid diet without any discomfort. He had a slight uptrend of his white count this morning, remains afebrile and clinically well Physical Exam Physical Exam: General: A&Ox3. NAD. Cooperative. HEENT: Atraumatic, normocephalic. Vision and hearing grossly intact Pulm: CTAB A&P. -wheezes, -rales, -rhonchi. Symmetrical chest rise. No increase in work of breathing. No respiratory distress. Cardiac: RRR, -mrg. Radial pulses intact and symmetrical. Abdominal: No tenderness at lap incisions/surgical incision sites. Sites are well-approximated and healing without dehiscence, erythema, or warmth. remaining abdomen nontender and without rebound/guarding. Slightly softly distended Results & Data Results & Data Vital Signs (Past 12 Hours) Vital Signs Temp Pulse Pulse Pulse Resp BP Pulse Ox 08/12/24 09:43 149/76 H 08/12/24 07:12 37 C 71 20 154/78 H 94 08/12/24 07:03 70 08/12/24 02:40 37.1 C 74 18 178/90 H 94 O2 Del Method 08/12/24 09:43 08/12/24 07:12 Room Air 08/12/24 07:03 08/12/24 02:40 Room Air PG Care Time/CCT Total # of Minutes Spent Total Time Spent with Patient: Total time spent is greater than 50% in coordination of care (as documented) at patient's floor/unit and/or counseling patient: Coding Level of Care Code 93197 SUB INP/OBS CARE 3/50MIN Diagnoses Large bowel perforation K63.1 Acute blood loss anemia D62 Bloody diarrhea R19.7 Painless hematuria R31.9
[2024-08-12 11:15] VITALS: RESP 18
[2024-08-12] MEDS: HEPARIN SOD 5,000 UNIT/0.5 ML VIAL SQ SCH (13:49)
[2024-08-13 06:15] LABS: Basophils # (auto) 0.04 K/uL (0.00-0.20); Basophils % (auto) 0.4 %; Eosinophils # (auto) 0.26 K/uL (0.00-0.50); Eosinophils % (auto) 2.4 %; Hemoglobin 8.5 g/dl (14.0-18.0); Immature Granulocytes # (auto) 0.12 K/uL (0.01-0.20); Immature Granulocytes % (auto) 1.1 %; Lymphocytes # (auto) 1.68 K/uL (1.20-3.40); Lymphocytes % (auto) 15.5 %; Mean Corpuscular Hemoglobin 28.7 pg (25.0-34.0); Mean Corpuscular Hgb Conc 31.5 g/dL (32.0-36.0); Mean Corpuscular Volume 91.2 fL (80.0-100.0); Monocytes # (auto) 1.71 K/uL (0.11-0.59); Monocytes % (auto) 15.8 %; Neutrophils # (auto) 7.03 K/uL (1.40-6.50); Neutrophils % (auto) 64.8 %; Platelet Count 437 K/uL (130-400); RDW Coefficient of Variation 13.5 % (11.5-14.5); RDW Standard Deviation 45.4 fL (36.4-46.3); Red Blood Count 2.96 M/uL (4.70-6.10); White Blood Count 10.84 K/ul (4.8-10.8)
[2024-08-13 06:29] LABS: BUN Creatinine Ratio 7.5 (10-20); Calcium 7.8 mg/dl (8.6-10.3); Creatinine Clr Calc Pharmacy 58.9 ml/min
[2024-08-13 07:18] VITALS: BP 167/75; TEMP 98.6; O2SAT 95
--- NOTE | 2024-08-13 07:29 | Surgery Progress Note ---
<Statement entered by Nilesh Rojas, - 08/13/24 11:18> Recommend follow up CT to be sure this is completely resolved. Proposed to do one today but the patient would like to be discharged today to do this as an outpatient. He will be discharged on oral abx for this. Abx should be extended if the outpatient CT does not show resolution. He will perform this follow up with Dr. Segura as I will be out of the office next week. This has been communicated with Dr. Segura's team. Date of Service August 13, 2024 Assessment & Plan (1) Large bowel perforation: Plan: Patient s/p L nephrectomy on 07/30 now admitted since 08/09 with concern for contained descending/sigmoid perforation on CT scan related to diverticulitis vs surgery WBC 10 (14), Hbg 8.5. Vitals are stable Pt is denying any abdominal complaints. he is tolerating fulls and having + bowel function Will advance to low fiber diet this AM and see how he fairs Possibility he can be d/c'd today from our standpoint, will need to complete a course of oral abx at home Will f/u on if pt will benefit from a CT as an outpt for follow up....he may also f/u with us in the office in 1-2 weeks Admission and Anticipated Discharge Date Admission Date: August 09, 2024 Subjective patient is feeling well this AM. he denies any pain, nausea/vomiting. he is tolerating fulls without issues. he is passing gas and having BMs without any blood. Results & Data Vital Signs (Past 12 Hours) Vital Signs Temp Pulse Pulse Resp BP Pulse Ox O2 Del Method 08/13/24 07:18 98.6 F 66 18 167/75 H 95 Room Air 08/13/24 02:28 99.3 F 75 18 175/78 H 93 Room Air 08/12/24 23:29 67 08/12/24 22:30 99.0 F 74 18 172/87 H 95 Room Air PG Care Time/CCT Total # of Minutes Spent Total Time Spent with Patient: Total time spent is greater than 50% in coordination of care (as documented) at patient's floor/unit and/or counseling patient: Coding Level of Care Code 91707 SUB INP/OBS CARE 06/08MIN Diagnoses Large bowel perforation K63.1
[2024-08-13 07:57] VITALS: PULSE 72
--- NOTE | 2024-08-13 11:42 | Discharge Summary ---
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 He presented on 08/09 for diarrhea and bright red blood in his stool. Recent [facility] admission from 07/28 08/03 for hematuria, urinary obstruction, and left renal mass. He underwent a radical left nephrectomy with Dr. Kc on 07/30. Patient reports he is okay since leaving the hospital, but has had loose stool ever since leaving the hospital. Last night, he went to bed around 8:30 PM, but around 11 PM, he had to use the restroom. He got up 3 times overnight and had diarrhea each time; noticed bright red blood in the stool that was progressively worsening. Diarrhea was liquidy in consistency. No prior history of C. difficile, per patient. Patient did not take any medicine prior to coming into the hospital. He reports that he only takes vitamins in the morning. No recent change in medications since leaving the hospital. Patient does have a history of abdominal surgeries; he had 6 inches taken from his colon due to diverticulitis. He reports he also has had his gallbladder and appendix removed. He does not use a CPAP at night or supplemental oxygen at baseline. No recent falls or injuries to the abdomen or pelvis. He does not ambulate with a walker or cane at baseline. No blood in his urine since his nephrectomy. Patient reports he does have an allergy to penicillins, whenever he takes it his throat becomes raw with bleeding. Patient denies smoking, tobacco use, recent alcohol use. Patient is hypertensive at 164/86 and tachypneic at 33rpm at time of admission. ED course: Zofran 4 mg IV NSS 500 mL IV x 2 Magnesium sulfate 1 g IV Cefoxitin 2000 mg IV ROS: Patient endorses intermittent low-grade fever last night (100 F), night-sweats (Monday night 08/07), and diarrhea with BRB in stool. Patient denies chills, dizziness, chest pain, chest palpitations, pleuritic CP, SOB, cough, abdominal pain, N/V, hematuria, burning with urination, pain with defecation, dysuria, saddle anesthesia, or lower back pain. Admission Exam Per Admitting Provider General: no acute distress; non-toxic appearing; well-nourished; cooperative; SpO2 98% on RA HEENT: normocephalic, atraumatic; no scleral icterus; PERRLA; vision and hearing intact Neck: supple; no lymphadenopathy; trachea midline Skin: warm, dry without signs of tenting; no cyanosis; no rashes, bruising, lesions, or erythema noted CV: chest wall NTP; RRR; S1/S2 normal; no murmurs/rubs/gallops; pulses intact and symmetric at radial, DP, and PT Lungs: no acute respiratory distress; symmetrical chest wall expansion; clear breath sounds across all lung ruiz w/o adventitious sounds; no wheezing ABD: Soft, NTP in all 4 quadrants; laparoscopic surgical scars are healing without signs of infection; BS present; no rebound/guarding; distention secondary to body habitus MSK: no tics or fasciculations; +2 pitting edema in the left lower extremity extending up to the knee; +1 pitting edema in the lower right lower extremity; neither extremity is erythematous Neuro: A&Ox3; normal mood and affect; fluent speech; no focal deficits; sensation intact and symmetric in the lower EXTR bilaterally Principal Diagnosis BRBPR due to bowel perforation Discharge Exam General: patient resting comfortably, NAD, non-toxic in appearance, answers questions appropriately. Skin: warm, dry, intact HEENT: NC/AT, anicteric sclera, conjunctiva without injection, moist mucus membranes. Heart: +S1/S2, regular, no m/r/g Lungs: equal air entry bilaterally, no rales/rhonchi/wheezes Abd: +BS, soft, NT/ND Ext: warm, no clubbing/cyanosis or edema Neuro: nonfocal, speech intact, no facial droop, moving all extremities. Discharge Data Allergies Allergy/AdvReac Type Severity Reaction Status Date / Time amoxicillin [From Augmentin] Allergy Mild Throat Verified 08/08/24 11:07 bleeding clavulanic acid Allergy Mild throat Verified 08/08/24 11:07 [From Augmentin] bleeding Consultations 08/09/24 09:33 ED Decision to Admit Stat 08/09/24 09:34 Consult General Surgery Stat 08/09/24 10:15 Consult Urology Routine Ordered Studies 08/09/24 04:55 CT abd pelvis wo con Stat Total Time Total Time Spent Total Time Spent (In Minutes): See attending attestation Discharge Plan Discharge Items Patient Disposition: Home - Self-Care Reason For Visit: CONTAINED LARGE BOWEL PERFORATION Discharge Diagnosis: Large bowel perforation Condition on Discharge: Fair Activity: Per Instructions section Non-emergency contact: Primary Care Provider, Surgeon and Urologist Call non-emergency contact if: your symptoms worsen, you have a fever and your temperature is above 101.5 Follow-up/Referrals: Donavan Segura MD [Physician] - (please call to schedule follow up in the office within 1 week to discuss the results of your CT scan) Marito Zaman DO [Primary Care Provider] - 08/20/24 11:00 am Diet: Regular Ambulatory Orders: CT abd pelvis wo con (Routine) Timeframe: 1 Week Location: Determined by Patient Ordered By: Awais Killian Attending Provider Instructions: You will be ordered a CT scan to evaluate the status of your colon perforation which you should undergo early next week. Then call and schedule an appointment with Dr. Segura's office ([facility]) to discuss the results (appt should be obtained for sometime next week after your CT scan). After the CT scan they will see if your antibiotics need to be prolonged or if things are improved and you can complete the current course as is. Continue on a low fiber diet over the next 4-6 weeks Complete the full course of antibiotics prescribed to you Please take Cefdinir 300mg twice daily for the next 7 days approximately 12 hours apart Please take Metronidazole 500mg three times daily for the next 7 days approximat dontrell 8 hours apart Pending Studies at Discharge: Yes Studies:: CT AP to be completed Monday or Saturday 08/19 or 08/20 of next week Stand-Alone Forms: My [facility], Smoking Cessation Medications and DC Order Prescriptions: New metronidazole 500 mg tablet 500 mg PO Q8H 7 Days Qty: 21 0RF cefdinir 300 mg capsule 300 mg PO Q12H Qty: 14 0RF Rx Instructions: Please take this medication twice daily approximately 12 hours apart for the next 7 days. Continued tamsulosin 0.4 mg capsule 0.4 mg PO DAILY Qty: 30 0RF acetaminophen [Tylenol Extra Strength] 500 mg tablet 1,000 mg PO Q6H PRN (Reason: Pain) multivitamin Tablet 1 tab PO DAILY potassium 99 mg Tablet 99 mg PO DAILY magnesium 250 mg Tablet 250 mg PO DAILY folic acid 800 mcg Tablet 0.8 mg PO DAILY cholecalciferol (vitamin D3) [Vitamin D3] 25 mcg (1,000 unit) Tablet 25 mcg PO DAILY Discharge Orders: Discharge Order (Routine); Ordered 08/13/24 Ordered By: Awais Bueno/Other Patient Handouts: Anemia, Low-Fiber Diet, Anatomy of the Digestive System Admission Data Admit Date/Time: 08/09/24 10:13 Attending Provider: Ashley Zaman Admit Provider: Carlos Ramirez Primary Care Provider: Marito Zaman Other Providers: Mio Kim; [facility]; Donavan Segura; Carlos Ramirez Other Interventions: Discharge Summary Assessment (RN) Last Done: 08/13/24 11:51 Supervising Physician Co-Signing Physician Notes I personally examined the patient and verified pa points of history and exam, discussed case, and agree with decision making and plan documented by Dr. Whitney. Patient on admission was POD 10 s/p left radical nephrectomy for renal cell carcinoma with presentation of bloody diarrhea. CT imaging was performed of abdomen and pelvis that showed perforation of distal descending and sigmoid colon with pericolonic stranding. Patient evaluated by surgery. Patient was initiated on conservative management with bowel rest, IV fluids, and IV antibiotics. Patient showed improvement, hemoglobin remained stable, he was able to advance diet, was having regular nonbloody bowel movements and no abdominal pain on discharge. Patient appears comfortable, lungs clear b/l to auscultation, regular rate and rhythm, no abdominal tenderness or guarding, no acute distress. Patient discussed approach to eating with nutrition. He is recommended to follow-up CT in 1 week after discharge. Patient will continue cefdinir and metronidazole for the next 7 days to complete course, he was advised to take all medications as prescribed. Patient advised to follow-up with his PCP within 3 to 5 days of discharge and will follow-up with surgery and urology. Total attending time 36 minutes.
== END 2024-08-13 12:16 | disposition home or self-care (01) | DRG 920 ==
LOC: ED 04:27 → SUATTDRO 10:13 → 2N 10:13

== ENCOUNTER 2024-09-10 15:53 | Inpatient (IN) ==
[2024-09-10 16:23] LABS: Basophils # (auto) 0.04 K/uL (0.00-0.20); Basophils % (auto) 0.4 %; Eosinophils # (auto) 0.15 K/uL (0.00-0.50); Eosinophils % (auto) 1.3 %; Hematocrit (blood only) 30.4 % (42.0-52.0); Hemoglobin 9.6 g/dl (14.0-18.0); Immature Granulocytes # (auto) 0.06 K/uL (0.01-0.20); Immature Granulocytes % (auto) 0.5 %; Lymphocytes # (auto) 2.26 K/uL (1.20-3.40); Lymphocytes % (auto) 20.3 %; Mean Corpuscular Hemoglobin 27.8 pg (25.0-34.0); Mean Corpuscular Hgb Conc 31.6 g/dL (32.0-36.0); Mean Corpuscular Volume 88.1 fL (80.0-100.0); Mean Platelet Volume 9.4 fL (9.4-12.4); Monocytes # (auto) 1.78 K/uL (0.11-0.59); Neutrophils # (auto) 6.85 K/uL (1.40-6.50); Neutrophils % (auto) 61.5 %; Platelet Count 405 K/uL (130-400); RDW Coefficient of Variation 14.1 % (11.5-14.5); Red Blood Count 3.45 M/uL (4.70-6.10); White Blood Count 11.14 K/ul (4.8-10.8)
[2024-09-10 16:43] LABS: Albumin Globulin Ratio 0.8 (0.9-2); Albumin Level 3.3 gm/dl (3.4-5.0); Bilirubin,Total 0.3 mg/dl (0.2-1.0); Calcium 8.8 mg/dl (8.6-10.3); Creatinine Clr Calc Pharmacy 43.8 ml/min; Globulin 4.4 gm/dl (2.5-4.0); Potassium 4.1 mmol/L (3.5-5.1); Total Protein 7.7 gm/dl (6.0-8.3)
--- NOTE | 2024-09-10 17:56 | Emergency Department Note ---
Impression & Plan Large bowel perforation, Diverticulitis, Status post nephrectomy ED Provider Note NAME: VINCENZO ROSEN AGE: 68 SEX: M : 1955 ARRIVES VIA: Walk-In INFORMANT: Patient ED PROVIDER(S): Davon Ruiz MD CHIEF COMPLAINT: Abnormal CT, referred. 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 Patient denies having any new or worsening pain and denies fevers or systemic symptoms otherwise. He reports the imaging was obtained as well as planned for surveillance until resolution. Patient reports there was concern for abscess at his incision site which was exhibiting wound drainage and so incision and drainage was performed with subsequent expression of additional purulent fluid and wound was packed. The patient's outpatient CT describes. "1. Acute sigmoid diverticulitis redemonstrated. 2. Evidence of perforation again noted with fluid and extraluminal air adjacent to the descending sigmoid junction. Compared to the 08/21/2024 study there is progressive inflammation which extends into the adjacent abdominal wall musculature and subcutaneous tissues with 12 cm sinus tract. Surgical consultation is advised." WBC 11.1 4K with neutrophilia but no left shift. H/H similar to prior. Platelets 405K, nonspecific and proximate to prior. Chemistry without metabolic acidosis. Creatinine 1.67, similar to prior values in the setting of CKD. LFTs unremarkable. Lipase is normal. Procalcitonin is not elevated. Empiric antibiotic treatment initiated with IV cefepime and Flagyl given history of allergy to Augmentin. Case was discussed with general surgery on-call, Dr. Segura. Appreciate consultation recommendations. Agrees with plan for admission for continued IV antibiotics. Case was discussed with Dr. Villa, [facility] [place] [facility] hospitalist; [facility] hospitalist service will evaluate the patient for admission. Further management per admitting team. Triage Nursing notes reviewed and agree them. Prior/external medical records reviewed Vital Signs: reviewed Differential diagnosis: Urinary tract infection, abscess, sepsis, bacteremia, as well as other pathologies. ER treatment provided: See below. Diagnostics interpreted by me: Cardiac Monitoring: An order for continuous cardiac monitoring was placed and demonstrated normal sinus rhythm, 93 bpm, no ectopy. Laboratory studies: See below Imaging studies: See below Consultation(s): Dr. Segura, general surgery on-call Dr. Villa, [facility] [place] hospitalist. HPI: Per MDM. ROS: See above HPI for pertinent positives & negatives. A total of 10 systems reviewed and were otherwise negative. VITALS:See Below PHYSICAL EXAMINATION: GENERAL: Awake, alert, well-appearing, in no distress, BMI 39.0. HENT: Normocephalic, atraumatic. Oropharynx with dry mucous membranes and otherwise unremarkable. EYES: Normal conjunctiva. Sclera non-icteric. NECK: Supple. No nuchal rigidity. FROM. No JVD. RESPIRATORY: Clear to auscultation. CARDIAC: Regular rate, normal rhythm. Extremities warm and well perfused. Pulses equal. ABDOMEN: Soft, non-distended. No tenderness to palpation. No rebound or guarding. 1.5cm wound packing s/p I&D located in the middle third of the patient's prior surgical incision site. MUSCULOSKELETAL: Chest examination reveals no tenderness. The back is symmetrical on inspection without obvious abnormality. There is no CVA tenderness to palpation. No joint edema. LOWER EXTREMITIES: Calves are equal size bilaterally and non-tender. No edema. No discoloration. NEURO: Normal sensorium. No sensory or motor deficits noted. SKIN: No rash or jaundice noted. Davon Ruiz MD Past Med/Surg History Problem List (Updated 09/12/24 @ 21:05 by Davon Ruiz MD) Status post nephrectomy (Acute) Diverticulitis (Acute) Abscess GERD (gastroesophageal reflux disease) Thrombosed external hemorrhoids Acute blood loss anemia Large bowel perforation (Acute) Abnormal CT of the abdomen Bloody diarrhea (Acute) Lower extremity edema Single functional kidney Elevated fasting blood sugar Morbid obesity Clear cell carcinoma of left kidney Hypothyroidism (acquired) (~1998) Elevated blood pressure reading in office without diagnosis of hypertension Medical History Clear cell renal cell carcinoma Postoperative fever Gross hematuria Obstructed Breen catheter Diverticulitis Lumbar herniated disc History of hypothyroidism per chart, pt. states [facility] [place] [facility] "[facility]'s [facility]" Hypertension History of diverticulitis Left kidney mass no biopsy Surgical History H/O left nephrectomy 07/30/2024 History of open reduction and internal fixation (ORIF) procedure (1974) left arm History of partial colectomy (1998) 6 inches removed due to diverticulitis History of appendectomy Hx of cholecystectomy (~1998) Family History Denies family history of Ovarian cancer Prostate cancer Myocardial infarction Breast cancer Colorectal cancer Social History Smoking Status: Never smoker Second Hand Exposure: No; Do You Dip or Chew Tobacco: No; Hx Alcohol Use: No Hx Substance Use: No Preferred Language: Tongan Communication Ability: Effective Visual Impairment: No Limitations Hearing Ability: Normal Conveyancer Required: No Beliefs That Will Affect Care: None marital status: Current Living Situation: Spouse Current Living Situation Comment: 2 story house with current occupational status: employed How many Children do You have: 6 Feels Safe at Home: Yes Safety Concerns: Feels Safe At This Time Childhood Exposure to Second-Hand Smoke: No Diet: regular caffeine: Yes during the past year weight has: remained stable Dental Care, Regularly: No Physical Activity Frequency: Daily Seatbelt Use: always Sunscreen Use: Yes Assistive Devices: None Allergies Allergies Allergy/AdvReac Type Severity Reaction Status Date / Time amoxicillin [From Augmentin] Allergy Mild Throat Verified 09/10/24 17:38 bleeding clavulanic acid Allergy Mild throat Verified 09/10/24 17:38 [From Augmentin] bleeding Home Meds Home Medications Medication Instructions Recorded Confirmed cholecalciferol (vitamin D3) 25 25 mcg PO DAILY 07/24/24 09/10/24 mcg (1,000 unit) tablet (Vitamin D3) folic acid 800 mcg tablet 0.8 mg PO DAILY 07/24/24 09/10/24 magnesium 250 mg tablet 250 mg PO DAILY 07/24/24 09/10/24 multivitamin 1 tab PO DAILY 07/24/24 09/10/24 acetaminophen 500 mg tablet 1,000 mg PO Q6H PRN Pain 08/08/24 09/10/24 (Tylenol Extra Strength) potassium gluconate 595 mg (99 mg) 595 mg PO DAILY 09/10/24 09/10/24 tablet Previous Rx's Medication Instructions Recorded omeprazole 40 mg capsule,delayed 40 mg PO DAILY #30 caps 09/03/24 release tamsulosin 0.4 mg capsule 0.4 mg PO DAILY #90 caps 09/03/24 cefdinir 300 mg capsule 300 mg PO Q12H #20 caps 09/10/24 metronidazole 500 mg tablet 500 mg PO Q8H 10 days #30 tabs 09/10/24 Results & Data (ED) Vital Signs Vital Signs - 24 hr 09/10/24 15:55 09/10/24 16:28 09/10/24 16:28 Temperature 36.3 C L Temperature Source Temporal Artery Scan Pulse Rate 93 H 82 Pulse Rate [Apical] 80 Pulse Rhythm [Apical] Regular Pulse Strength [Apical] Normal Respiratory Rate 18 19 Respiratory Effort / Characteristics Non-Labored Spontaneous Non-Labored Spontaneous Respiratory Depth Normal Normal Respiratory Pattern Regular Regular Blood Pressure 130/73 Blood Pressure [Left Arm] 129/96 Blood Pressure Mean 92 Blood Pressure Mean [Left Arm] 107 Blood Pressure Position [Left Arm] Sitting Pulse Oximetry 97 97 Oxygen Delivery Method Room Air Room Air Sepsis Recent Fever Within 48 Hours No Sepsis New/Unexplained Change in Mental Status No Sepsis Action Taken by Nursing No Action Required 09/10/24 17:00 09/10/24 19:00 Temperature Temperature Source Pulse Rate Pulse Rate [Apical] 81 78 Pulse Rhythm [Apical] Regular Pulse Strength [Apical] Normal Respiratory Rate 18 16 Respiratory Effort / Characteristics Non-Labored Spontaneous Non-Labored Spontaneous Respiratory Depth Normal Normal Respiratory Pattern Regular Regular Blood Pressure Blood Pressure [Left Arm] 129/96 165/89 H Blood Pressure Mean Blood Pressure Mean [Left Arm] 107 114 Blood Pressure Position [Left Arm] Sitting Lying Pulse Oximetry 99 99 Oxygen Delivery Method Room Air Room Air Sepsis Recent Fever Within 48 Hours Sepsis New/Unexplained Change in Mental Status Sepsis Action Taken by Nursing Laboratory Data Attestation: I reviewed the patient's lab results. 09/12/24 07:40 09/12/24 07:40 Lab Results 09/10/24 09/10/24 Range/Units 16:03 16:04 WBC 11.14 H (4.8-10.8) K/ul RBC 3.45 L (4.70-6.10) M/uL Hgb 9.6 L (14.0-18.0) g/dl Hct 30.4 L (42.0-52.0) % MCV 88.1 (80.0-100.0) fL MCH 27.8 (25.0-34.0) pg MCHC 31.6 L (32.0-36.0) g/dL RDW Std Deviation 45.0 (36.4-46.3) fL RDW Coeff of Jil 14.1 (11.5-14.5) % Plt Count 405 H (130-400) K/uL MPV 9.4 (9.4-12.4) fL Immature Gran % (Auto) 0.5 % Neut % (Auto) 61.5 % Lymph % (Auto) 20.3 % [place] % (Auto) 16.0 % Eos % (Auto) 1.3 % Baso % (Auto) 0.4 % Neut # (Auto) 6.85 H (1.40-6.50) K/uL Lymph # (Auto) 2.26 (1.20-3.40) K/uL [place] # (Auto) 1.78 H (0.11-0.59) K/uL Eos # (Auto) 0.15 (0.00-0.50) K/uL Baso # (Auto) 0.04 (0.00-0.20) K/uL Immature Gran # (Auto) 0.06 (0.01-0.20) K/uL Sodium 135 L (136-145) mmol/L Potassium 4.1 (3.5-5.1) mmol/L Chloride 101 (98-107) mmol/L Carbon Dioxide 25 (21-32) mmol/L Anion Gap 9 (3-11) BUN 15 (6-23) mg/dl Creatinine 1.67 H (0.6-1.4) mg/dl Est Cr Clr Drug Dosing 43.8 ml/min eGFR 44.03 BUN/Creatinine Ratio 9.0 L (10-20) Glucose 115 H (70-99(Fasting)) mg/dl Calcium 8.8 (8.6-10.3) mg/dl Total Bilirubin 0.3 (0.2-1.0) mg/dl AST 11 L (13-39) U/L ALT 5 L (7-52) U/L Alkaline Phosphatase 52 (34-104) U/L Total Protein 7.7 (6.0-8.3) gm/dl Albumin 3.3 L (3.4-5.0) gm/dl Globulin 4.4 H (2.5-4.0) gm/dl Albumin/Globulin Ratio 0.8 L (0.9-2) Lipase 60 (11-82) U/L Procalcitonin 0.15 (0-0.5) ng/ml Blood Type O Positive Antibody Screen NEGATIVE Administered Medications Folic Acid (Folic Acid 400 Mcg Tab) 800 mcg PO DAILY [facility] Stop: 10/11/24 08:59 Last Admin: 09/12/24 09:49 Dose: 800 mcg Documented By: Admin: 09/11/24 08:12 Dose: Not Given Documented By: SILVIA Piperacillin Sod/Tazobactam Sod (Zosyn) 4.5 gm in 100 mls @ 25 mls/hr IV Q8H [facility]; Protocol Stop: 09/21/24 16:59 Last Admin: 09/12/24 16:49 Dose: 25 mls/hr Documented By: Infusion: 09/12/24 14:10 Dose: Infused Documented By: Admin: 09/12/24 09:53 Dose: 25 mls/hr Documented By: Infusion: 09/12/24 05:43 Dose: Infused Documented By: Admin: 09/12/24 01:34 Dose: 25 mls/hr Documented By: Infusion: 09/11/24 20:40 Dose: Infused Documented By: Admin: 09/11/24 16:23 Dose: 25 mls/hr Documented By: SILVIA Lactated Ringer's (Lr) 1,000 mls @ 80 mls/hr IV .[id number] [facility] Stop: 09/12/24 21:14 Last Admin: 09/12/24 10:02 Dose: 80 mls/hr Documented By: KLEBER Pantoprazole Sodium (Pantoprazole 40 Mg Tab) 40 mg PO DAILY [facility] Stop: 10/11/24 08:59 Last Admin: 09/12/24 09:49 Dose: 40 mg Documented By: Admin: 09/11/24 08:12 Dose: Not Given Documented By: SILVIA Tamsulosin HCl (Tamsulosin Hcl 0.4 Mg Cap) 0.4 mg PO DAILY [facility] Stop: 10/11/24 08:59 Last Admin: 09/12/24 09:49 Dose: 0.4 mg Documented By: Admin: 09/11/24 08:12 Dose: Not Given Documented By: SILVIA Zolpidem Tartrate (Zolpidem Tartrate 5 Mg Tab) 5 mg PO HS PRN PRN Reason: Sleep Stop: 10/11/24 15:36 Last Admin: 09/11/24 21:19 Dose: 5 mg Documented By: TANISHA Discontinued Medications Cefepime HCl (Maxipime 2000mg) 2,000 mg in 20 mls @ 5 mls/min IV NOW STA; Protocol Stop: 09/10/24 17:57 Last Admin: 09/10/24 18:04 Dose: 5 mls/min Documented By: CHELE Metronidazole (Flagyl) 500 mg in 100 mls @ 100 mls/hr IV NOW STA; Protocol Stop: 09/10/24 18:53 Last Infusion: 09/10/24 19:50 Dose: Infused Documented By: Admin: 09/10/24 18:06 Dose: 100 mls/hr Documented By: CHELE Sodium Chloride (Nss) 500 mls @ 999 mls/hr IV .Q31M ONE Stop: 09/10/24 18:24 Last Infusion: 09/10/24 19:50 Dose: Infused Documented By: Admin: 09/10/24 18:04 Dose: 999 mls/hr Documented By: CHELE Lactated Ringer's (Lr) 1,000 mls @ 125 mls/hr IV .Q8H [facility] Stop: 09/11/24 20:41 Last Infusion: 09/11/24 22:48 Dose: Infused Documented By: Admin: 09/11/24 14:28 Dose: 125 mls/hr Documented By: Infusion: 09/11/24 14:28 Dose: Infused Documented By: Admin: 09/11/24 05:25 Dose: 125 mls/hr Documented By: Infusion: 09/11/24 05:14 Dose: Infused Documented By: Admin: 09/10/24 21:14 Dose: 125 mls/hr Documented By: TANISHA Cefepime HCl (Maxipime 2000mg) 2,000 mg in 20 mls @ 5 mls/min IV Q12H [facility]; Protocol Stop: 09/21/24 05:59 Last Admin: 09/11/24 05:25 Dose: 5 mls/min Documented By: TANISHA Metronidazole (Flagyl) 500 mg in 100 mls @ 100 mls/hr IV Q12H [facility]; Protocol Stop: 09/21/24 01:59 Last Infusion: 09/11/24 02:30 Dose: Infused Documented By: Admin: 09/11/24 01:20 Dose: 100 mls/hr Documented By: TANISHA Piperacillin Sod/Tazobactam Sod (Zosyn) 4.5 gm in 100 mls @ 200 mls/hr IV NOW STA; Protocol Stop: 09/11/24 11:49 Last Infusion: 09/11/24 12:45 Dose: Infused Documented By: Admin: 09/11/24 12:15 Dose: 200 mls/hr Documented By: SILVIA Imaging Data Radiologist's Impression: Outpatient CT 09/10/24: ABDOMEN AND PELVIS CT WITHOUT CONTRAST CT DOSE: 1392.63 mGy.cm HISTORY: Follow-up study in a patient with acute diverticulitis. re-eval, area now draining TECHNIQUE: Multiaxial CT images of the abdomen and pelvis were performed without contrast. A dose lowering technique was utilized adhering to the principles of ALARA. COMPARISON STUDY: 08/21/2024 FINDINGS: Mild coronary artery calcifications. Decreased attenuation of the cardiac blood pool suggestive of anemia. Clear lung bases. Limited evaluation of the solid abdominal organs without IV contrast. The spleen measures up to 12 cm in length. Mildly atrophic pancreas. Unchanged appearance of the adrenal glands. Cholecystectomy. Hepatic steatosis with mild hepatomegaly. Probable complex cyst of the superior pole right kidney measures 10 mm. No right-sided hydronephrosis. Absent left kidney. Decompressed urinary bladder with wall thickening. There is mild prostatomegaly. Atherosclerosis of the aorta without aneurysm. Small likely reactive retroperitoneal lymph nodes. No bowel obstruction. Colonic diverticulosis with acute diverticulitis again noted within the distal descending colon and rectosigmoid junction. Extraluminal air adjacent to the area of inflammation is again seen along with adjacent stranding and free fluid with ill-defined margins. The largest pocket of fluid measures approximately 2.5 x 1.1 cm on image 22. No definite drainable component.Sinus tract measures up to approximately 12 cm on image 233 series 3. Interval development of inflammatory stranding with air and debris also noted involving the adjacent abdominal wall and subcutaneous tissues with moderate synovitis. This follows what may be a chronic postoperative tract. Small fat filled umbilical hernia. No acute fracture. IMPRESSION: 1. Acute sigmoid diverticulitis redemonstrated. 2. Evidence of perforation again noted with fluid and extraluminal air adjacent to the descending sigmoid junction. Compared to the 08/21/2024 study there is progressive inflammation which extends into the adjacent abdominal wall musculature and subcutaneous tissues with 12 cm sinus tract. Surgical consultation is advised. 3. No bowel obstruction. 4. Additional findings as above. ACT 112: Negative or not required by law. The above report was generated using voice recognition software. It may contain grammatical, syntax or spelling errors. Electronically signed by: Rasta Mujica M.D. 09/10/2024 1:04 PM Discharge Plan Visit Data Chief Complaint: Referred by Doctor Stated Complaint: REF BY ED Provider: Davon Ruiz Discharge Problem: Large bowel perforation, Diverticulitis, Status post nephrectomy Patient Disposition: Admitted As Inpatient Condition: Fair Discharge Instructions Interventions: ED Discharge Assessment Last Done: 09/10/24 20:14
[2024-09-10] MEDS: CEFEPIME 2000MG 2,000 MG/20 ML SYR IV STA (18:04)
[2024-09-10] MEDS: SODIUM CHLORIDE 0.9% 500 ML IV ONE (18:04)
[2024-09-10] MEDS: metroNIDAZOLE 500 MG/100 ML BAG IV STA (18:06)
--- NOTE | 2024-09-10 19:12 | History & Physical Report ---
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 ED evaluation reveals leukocytosis 11.14, H&H 9.6/30.4, platelets 405; sodium 135, creatinine 1.67, ratio 9, glucose 115, AST 11, ALT 5, beaming 3.3, globulin 4.4; lipase 60; procalcitonin 0.15; CTAP acute sigmoid diverticulitis redemonstrated, evidence of perforation noted again with fluid extraluminal air adjacent to descending sigmoid colon with progressive inflammation from 08/21/2024 imaging extending into the adjacent abdominal wall musculature and subcu tissues with 12 cm sinus tract, no bowel obstruction identified.; Provided with 500 mL NSS, metronidazole 500 mg IV, cefepime 2 g IV in ED. #Diverticulitis Complicated by contained perforation. Patient had recently presented to [facility] 08/[address] showed large bowel contained perforation, but he was discharged on 08/22 with metronidazole and cefdinir. Follow-up with PCP for 09/03/2024 with persistent LLQ pain as well as low-grade fevers in which she was started on Flagyl for 7 days. Reevaluated by PCP on day of arrival for abscess which was drained and packed (dressing to be removed , 09/12/2024). PCP suspected seroma. - CBC w/ leukocytosis 11.14, H/H 9.6/30.4; CMP BUN 15- CBC, BMP am - CTAP (outpatient) reveals acute sigmoid diverticulitis redemonstrated, evidence of perforation noted again with fluid extraluminal air adjacent to descending sigmoid colon with progressive inflammation from 08/21/2024 imaging extending into the adjacent abdominal wall musculature and subcu tissues with 12 cm sinus tract, no bowel obstruction identified - NPO - IVF LR @ 100 mL/hr - Acetaminophen fever/pain prn, Morphine severe pain prn - Zofran prn N/V - Cefepime + Metronidazole IV - Gen sx consulted - appreciate input + recs #Clear-cell carcinoma/nephrectomy- L radical nephrectomy 07/30/2024 #GERD- Omeprazole #Hypothyroidism- No medications for such Dispo: Admit, med/sx VTE Prophylaxis: SCDs This document was dictated utilizing [employer]. Please excuse any grammatical errors that may be secondary to use of this software. 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 States that the am of arrival, he awoke at 0100 and noticed an ulcer type growth on his LLQ at the skin surface. It was then 0130 when he got up to go to the bathroom and noticed that there was discharge coming from the area. States that the discharge is mixed with clear/bloody/pus type material and it just oozes out rather than squirting out. States that at no point did he have pain nor has he had fevers. Reports that he has been having normal bowel movements (more liquid than normal 2/2 being on antibiotics), and no N/V. Otherwise denying chest pain, SOB, palpitations, LUTS, weakness, syncope, URI symptoms, or sick contacts. No bleeding per rectum, no hematuria. . Has never had this happen before. ED evaluation reveals leukocytosis 11.14, H&H 9.6/30.4, platelets 405; sodium 135, creatinine 1.67, ratio 9, glucose 115, AST 11, ALT 5, beaming 3.3, globulin 4.4; lipase 60; procalcitonin 0.15; CTAP acute sigmoid diverticulitis redemonstrated, evidence of perforation noted again with fluid extraluminal air adjacent to descending sigmoid colon with progressive inflammation from 08/21/2024 imaging extending into the adjacent abdominal wall musculature and subcu tissues with 12 cm sinus tract, no bowel obstruction identified.; Provided with 500 mL NSS, metronidazole 500 mg IV, cefepime 2 g IV in ED. Please see Dr. Lombardo's attestation for adjustments/additions to treatment plan. Allergies Allergy/AdvReac Type Severity Reaction Status Date / Time amoxicillin [From Augmentin] Allergy Mild Throat Verified 09/10/24 17:38 bleeding clavulanic acid Allergy Mild throat Verified 09/10/24 17:38 [From Augmentin] bleeding Home Medications Medication Instructions Recorded Confirmed Type cholecalciferol (vitamin D3) 25 25 mcg PO DAILY 07/24/24 09/10/24 History mcg (1,000 unit) tablet (Vitamin D3) folic acid 800 mcg tablet 0.8 mg PO DAILY 07/24/24 09/10/24 History magnesium 250 mg tablet 250 mg PO DAILY 07/24/24 09/10/24 History multivitamin 1 tab PO DAILY 07/24/24 09/10/24 History acetaminophen 500 mg tablet 1,000 mg PO Q6H PRN Pain 08/08/24 09/10/24 History (Tylenol Extra Strength) omeprazole 40 mg capsule,delayed 40 mg PO DAILY #30 caps 09/03/24 09/10/24 Rx release tamsulosin 0.4 mg capsule 0.4 mg PO DAILY #90 caps 09/03/24 09/10/24 Rx cefdinir 300 mg capsule 300 mg PO Q12H #20 caps 09/10/24 09/10/24 Rx metronidazole 500 mg tablet 500 mg PO Q8H 10 days #30 tabs 09/10/24 09/10/24 Rx potassium gluconate 595 mg (99 mg) 595 mg PO DAILY 09/10/24 09/10/24 History tablet Past Med/Surg History Problem List (Updated 09/10/24 @ 21:26 by Davon Ruiz MD) Abscess GERD (gastroesophageal reflux disease) Thrombosed external hemorrhoids Acute blood loss anemia Large bowel perforation (Acute) Abnormal CT of the abdomen Bloody diarrhea (Acute) Lower extremity edema Single functional kidney Elevated fasting blood sugar Morbid obesity Clear cell carcinoma of left kidney Hypothyroidism (acquired) (~1998) Elevated blood pressure reading in office without diagnosis of hypertension Medical History Clear cell renal cell carcinoma Postoperative fever Gross hematuria Obstructed Breen catheter Diverticulitis Lumbar herniated disc History of hypothyroidism per chart, pt. states [facility] [place] and "[facility]'s ok" Hypertension History of diverticulitis Left kidney mass no biopsy Surgical History H/O left nephrectomy 07/30/2024 History of open reduction and internal fixation (ORIF) procedure (1974) left arm History of partial colectomy (1998) 6 inches removed due to diverticulitis History of appendectomy Hx of cholecystectomy (~1998) Family History Denies family history of Ovarian cancer Prostate cancer Myocardial infarction Breast cancer Colorectal cancer Social History Smoking Status: Never smoker Second Hand Exposure: No; Do You Dip or Chew Tobacco: No; Hx Alcohol Use: No Hx Substance Use: No Preferred Language: Vietnamese Communication Ability: Effective Visual Impairment: No Limitations Hearing Ability: Normal Chief Technology Officer Required: No Beliefs That Will Affect Care: None marital status: Current Living Situation: Spouse Current Living Situation Comment: 2 story house with current occupational status: employed How many Children do You have: 6 Feels Safe at Home: Yes Safety Concerns: Feels Safe At This Time Childhood Exposure to Second-Hand Smoke: No Diet: regular caffeine: Yes during the past year weight has: remained stable Dental Care, Regularly: No Physical Activity Frequency: Daily Seatbelt Use: always Sunscreen Use: Yes Assistive Devices: Denture - Upper and Glasses Review of Systems 2 Review of Systems: All systems reviewed & are unremarkable except as noted in Subjective Physical Exam 2 Physical Exam: General: No acute distress Skin: Warm and dry Head: Normocephalic, atraumatic Eyes: PERRL, conjunctivae clear, sclera non-icteric; wearing glasses ENT: External ear and ear canal without swelling; nose atraumatic; good dentition, tongue normal appearance, pharynx normal Neck: Supple, no LAD Cardio: RRR, no M/G/R, S1 and S2 normal Resp: No respiratory distress, Lungs CTA in all lobes bilaterally, no wheezes, rales, or rhonchi Abdomen: Soft, symmetric, nontender; No hepatosplenomegaly; Bowel sounds normoactive; LLQ with dressing overlaying, appears to have packing coming out of opening (see image). MSK: No deformities; pulses palpable and equal; no edema. Neuro: Awake, alert; Sensation intact bilaterally; CN grossly intact Psych: Appropriate mood and affect; good judgement and insight. present in room at time of visit. Results & Data Results & Data Vital Signs (Past 12 Hours) Vital Signs Temp Pulse Pulse Resp BP BP Pulse Ox 09/10/24 17:00 81 18 129/96 99 09/10/24 16:28 80 19 129/96 97 09/10/24 16:28 82 09/10/24 15:55 36.3 C L 93 H 18 130/73 97 O2 Del Method 09/10/24 17:00 Room Air 09/10/24 16:28 Room Air 09/10/24 16:28 09/10/24 15:55 Room Air Laboratory Results 09/10/24 09/10/24 16:04 16:03 WBC 11.14 H RBC 3.45 L Hgb 9.6 L Hct 30.4 L MCV 88.1 MCH 27.8 MCHC 31.6 L RDW Std Deviation 45.0 RDW Coeff of Jil 14.1 Plt Count 405 H MPV 9.4 Immature Gran % (Auto) 0.5 Neut % (Auto) 61.5 Lymph % (Auto) 20.3 [place] % (Auto) 16.0 Eos % (Auto) 1.3 Baso % (Auto) 0.4 Neut # (Auto) 6.85 H Lymph # (Auto) 2.26 [place] # (Auto) 1.78 H Eos # (Auto) 0.15 Baso # (Auto) 0.04 Immature Gran # (Auto) 0.06 Sodium 135 L Potassium 4.1 Chloride 101 Carbon Dioxide 25 Anion Gap 9 BUN 15 Creatinine 1.67 H Est Cr Clr Drug Dosing 43.8 eGFR 44.03 BUN/Creatinine Ratio 9.0 L Glucose 115 H Calcium 8.8 Total Bilirubin 0.3 AST 11 L ALT 5 L Alkaline Phosphatase 52 Total Protein 7.7 Albumin 3.3 L Globulin 4.4 H Albumin/Globulin Ratio 0.8 L Lipase 60 Procalcitonin 0.15 Blood Type O Positive Antibody Screen NEGATIVE Diagnostic Findings Patient: VINCENZO ROSEN Admit Date: 09/10/24 MR#: [id number] Address[address]: [address] [facility] Acct ID:[id number] Address2: Date: 1955 [facility] Zip: [place] [address] Age: 68 Location: OR Sex: M Room/Bed: Att Phy: Janessa Quinonez PA-C Diagnosis: re-eval, area now draining Kamala Phy: Marito Zaman DO Service Date: 09/10/24 [facility] Phy: Interpreting Phy: Rasta MujicaAdmit Phy: Ordering Phy: Janessa Quinonez PA-C cc: ~ ABDOMEN AND PELVIS CT WITHOUT CONTRAST CT DOSE: 1392.63 mGy.cm HISTORY: Follow-up study in a patient with acute diverticulitis. re-eval, area now draining TECHNIQUE: Multiaxial CT images of the abdomen and pelvis were performed without contrast. A dose lowering technique was utilized adhering to the principles of ALARA. COMPARISON STUDY: 08/21/2024 FINDINGS: Mild coronary artery calcifications. Decreased attenuation of the cardiac blood pool suggestive of anemia. Clear lung bases. Limited evaluation of the solid abdominal organs without IV contrast. The spleen measures up to 12 cm in length. Mildly atrophic pancreas. Unchanged appearance of the adrenal glands. Cholecystectomy. Hepatic steatosis with mild hepatomegaly. Probable complex cyst of the superior pole right kidney measures 10 mm. No right-sided hydronephrosis. Absent left kidney. Decompressed urinary bladder with wall thickening. There is mild prostatomegaly. Atherosclerosis of the aorta without aneurysm. Small likely reactive retroperitoneal lymph nodes. No bowel obstruction. Colonic diverticulosis with acute diverticulitis again noted within the distal descending colon and rectosigmoid junction. Extraluminal air adjacent to the area of inflammation is again seen along with adjacent stranding and free fluid with ill-defined margins. The largest pocket of fluid measures approximately 2.5 x 1.1 cm on image 22. No definite drainable component.Sinus tract measures up to approximately 12 cm on image 233 series 3. Interval development of inflammatory stranding with air and debris also noted involving the adjacent abdominal wall and subcutaneous tissues with moderate synovitis. This follows what may be a chronic postoperative tract. Small fat filled umbilical hernia. No acute fracture. IMPRESSION: 1. Acute sigmoid diverticulitis redemonstrated. 2. Evidence of perforation again noted with fluid and extraluminal air adjacent to the descending sigmoid junction. Compared to the 08/21/2024 study there is progressive inflammation which extends into the adjacent abdominal wall musculature and subcutaneous tissues with 12 cm sinus tract. Surgical consultation is advised. 3. No bowel obstruction. 4. Additional findings as above. ACT 112: Negative or not required by law. The above report was generated using voice recognition software. It may contain grammatical, syntax or spelling errors. Electronically signed by: Rasta Mujica M.D. 09/10/2024 1:04 PM Dictated: 09/10/24 1254 Transcribed: 09/10/24 1254 Medications Administered 500 mL NSS Metronidazole 500 mg IV Cefepime 2 g IV Code Status & VTE Plan Code Status Full Supervising Physician Co-Signing Physician Notes Patient seen and examined, chart reviewed, case discussed with MATTY Mackenzie and I agree with the assessment and plan as above. In brief, patient is a 68yo male with history of clear cell carcinoma of the left kidney s/p radical nephrectomy performed by Dr. Kc on 07/31/23. Patient returned to the [facility] on 08/[address] of the abdomen with findings concerning for contained perforation of the distal descending/sigmoid colon. He was admitted and managed conservatively with IV antibiotics. He was ultimately discharged on Metronidazole and Cefdinir. He had a CT of the abdomen which showed an imporving phlegmon 4cm in diameter at site of previous perforation. Patient was seen by his PCP on 09/03 with complaint of ongoing LLQ discomfort and fevers/night sweats. He was given another course of metronidazole. Today prior to arrival he developed a fluid collection at LLQ - did open pontaneously at home with drainage of copious amounts of serosanguinous and purulent liquid. did show pictures of this. He was seen by his PCP and I&D performed and area was packed with gauze. Imaging today reveals a 12cm sinus tract communicating with the abdominal wall. On exam he is afebrile, HD stable, non-toxic in appearance Skin - no rash HEENT - MMM, neck supple Heart - +S1/S2, regular Lungs - CTA, no rales/rhonchi/wheezes Abd - open area in LLQ with packing in place, no surrounding cellulitis, no ascites Labs and images reviewed. Significant for wBC=11.14, Ygr=[id number] CT of the abdomen as above Assessment/Plan -Continue IV antibiotics - Cefepime and Flagyl for now -General surgery consult appreciated -Pain control, anti-emetics as needed -Continue IVF overnight -Keep NPO for possible procedure in AM -Remainder as above PG Care Time/CCT Total # of Minutes Spent Total Time Spent with Patient: Total time spent is greater than 50% in coordination of care (as documented) at patient's floor/unit and/or counseling patient: Coding Level of Care Code 15777 INT INP/OBS CARE MIN Diagnoses Diverticulitis K57.92
[2024-09-10] MEDS ORDERED: ACETAMINOPHEN 500 MG TAB PO PRN (20:42)
[2024-09-10] MEDS ORDERED: ONDANSETRON INJ 2 MG/ML 2 ML VIAL IV PRN (20:42)
[2024-09-10] MEDS ORDERED: MoRPHine SULFATE 2 MG/ML CARP IV PRN ×2 (20:42)
[2024-09-10] MEDS ORDERED: POLYETHYLENE (MIRALAX) 17 GM PACK PO PRN (20:42)
[2024-09-10] MEDS ORDERED: MELATONIN 3 MG TAB PO PRN (20:42)
[2024-09-10] MEDS: LACTATED RINGER'S 1,000 ML IV SCH (21:14)
[2024-09-11] MEDS: metroNIDAZOLE 500 MG/100 ML BAG IV SCH (01:20)
[2024-09-11] MEDS: CEFEPIME 2000MG 2,000 MG/20 ML SYR IV SCH (05:25)
[2024-09-11] MEDS: PANTOprazole 40 MG TAB PO SCH (08:12)
[2024-09-11] MEDS: FOLIC ACID 400 MCG TAB PO SCH (08:12)
[2024-09-11] MEDS: TAMSULOSIN HCL 0.4 MG CAP PO SCH (08:12)
[2024-09-11 09:51] LABS: Hematocrit (blood only) 31.7 % (42.0-52.0); Hemoglobin 9.7 g/dl (14.0-18.0); Mean Corpuscular Hemoglobin 27.3 pg (25.0-34.0); Mean Corpuscular Hgb Conc 30.6 g/dL (32.0-36.0); Mean Corpuscular Volume 89.3 fL (80.0-100.0); Mean Platelet Volume 10.1 fL (9.4-12.4); Platelet Count 339 K/uL (130-400); RDW Coefficient of Variation 13.9 % (11.5-14.5); RDW Standard Deviation 45.4 fL (36.4-46.3); Red Blood Count 3.55 M/uL (4.70-6.10); White Blood Count 10.52 K/ul (4.8-10.8)
[2024-09-11 10:14] LABS: BUN Creatinine Ratio 9.6 (10-20); Calcium 8.8 mg/dl (8.6-10.3); Creatinine Clr Calc Pharmacy 53.7 ml/min; Potassium 4.5 mmol/L (3.5-5.1)
--- NOTE | 2024-09-11 11:45 | Surgery Consultation ---
Date of Consultation September 11, 2024 Assessment & Plan (1) Abscess: (2) Large bowel perforation: (3) Abnormal CT of the abdomen: Plan 68 yo male with history of left radical nephrectomy in july for clear cell carcinoma of left kidney, prior sigmoid colon resection for perforated div erticulitis years ago and recent admission at end of last month with perforated sigmoid diverticulitis with abscess who has been on oral antibiotics since discharge presented to ED with LLQ pain and repeat CT scan on 09/10/24 without contrast showing acute diverticulitis of sigmoid colon with extraluminal air and fluid consistent with microperforation however there is now gas and sinus tract extending to the left lower abdominal musculature. Liquid brownish drainage from abdominal incision on examination. Possible EC fistula vs drainage of prior perforated colon/abscess now drainage from open wound. Would recommend IV Zosyn, close monitoring of wound drainage and conservative management. Patient aware of possible etiologies and if EC fistula would require extensive surgery given his surgical history and recent surgical intervention. Continue medical management. Okay for diet. Wound care nurse consulted. Will follow along. Dr. Segura has seen and examined patient, discussed above with patient and . History of Present Illness Reason for Consultation: Diverticulitis with microperforation and sinus tract Requesting Physician: Osmany Mackenzie PA-C Attending Physician: Joaquin Lund MD History of Present Illness Mr. Maurice is a 68 yo male with history of clear cell carcinoma of left kidney s/p left radical robotic nephrectomy by Dr. Kc in July and then perforated diverticulitis 10 days postop at end of July presented back to emergency department last evening due to repeat CT scan showing contained perforated diverticulitis with sinus tract and drainage from left nephrectomy incision. Mr. Maurice says that he has been feeling well, no abdominal pain, no nausea or vomiting, tolerating diet, appetite normal, having soft/liquid bowel movements without blood. States he had swelling at incision site and PCP opened it and drained it and packed it on Monday. The drainage is now more brown liquid today which was more yellow/purulent and pink at home. Normal bowel movement last night and this am without blood. No current abdominal pain. Soreness at incision site. Allergies Allergy/AdvReac Type Severity Reaction Status Date / Time amoxicillin [From Augmentin] Allergy Mild Throat Verified 09/10/24 17:38 bleeding clavulanic acid Allergy Mild throat Verified 09/10/24 17:38 [From Augmentin] bleeding Home Medications Medication Instructions Recorded Confirmed Type cholecalciferol (vitamin D3) 25 25 mcg PO DAILY 07/24/24 09/10/24 History mcg (1,000 unit) tablet (Vitamin D3) folic acid 800 mcg tablet 0.8 mg PO DAILY 07/24/24 09/10/24 History magnesium 250 mg tablet 250 mg PO DAILY 07/24/24 09/10/24 History multivitamin 1 tab PO DAILY 07/24/24 09/10/24 History acetaminophen 500 mg tablet 1,000 mg PO Q6H PRN Pain 08/08/24 09/10/24 History (Tylenol Extra Strength) omeprazole 40 mg capsule,delayed 40 mg PO DAILY #30 caps 09/03/24 09/10/24 Rx release tamsulosin 0.4 mg capsule 0.4 mg PO DAILY #90 caps 09/03/24 09/10/24 Rx cefdinir 300 mg capsule 300 mg PO Q12H #20 caps 09/10/24 09/10/24 Rx metronidazole 500 mg tablet 500 mg PO Q8H 10 days #30 tabs 09/10/24 09/10/24 Rx potassium gluconate 595 mg (99 mg) 595 mg PO DAILY 09/10/24 09/10/24 History tablet Patient History Medical History Clear cell renal cell carcinoma Postoperative fever Gross hematuria Obstructed Breen catheter Diverticulitis Lumbar herniated disc History of hypothyroidism per chart, pt. states [facility] [place] and "[facility]'s ok" Hypertension History of diverticulitis Left kidney mass no biopsy Surgical History H/O left nephrectomy 07/30/2024 History of open reduction and internal fixation (ORIF) procedure (1974) left arm History of partial colectomy (1998) 6 inches removed due to diverticulitis History of appendectomy Hx of cholecystectomy (~1998) Family History Denies family history of Ovarian cancer Prostate cancer Myocardial infarction Breast cancer Colorectal cancer Social History Smoking Status: Never smoker Second Hand Exposure: No; Do You Dip or Chew Tobacco: No; Hx Alcohol Use: No Hx Substance Use: No Preferred Language: Nepalese Communication Ability: Effective Visual Impairment: No Limitations Hearing Ability: Normal Digital Media Intern Required: No Beliefs That Will Affect Care: None marital status: Current Living Situation: Spouse Current Living Situation Comment: 2 story house with current occupational status: employed How many Children do You have: 6 Feels Safe at Home: Yes Safety Concerns: Feels Safe At This Time Childhood Exposure to Second-Hand Smoke: No Diet: regular caffeine: Yes during the past year weight has: remained stable Dental Care, Regularly: No Physical Activity Frequency: Daily Seatbelt Use: always Sunscreen Use: Yes Assistive Devices: None Review of Systems Review of Systems: All systems reviewed & are unremarkable except as noted in HPI & below Physical Exam Constitutional: WD/WN, vitals as above + obese, cooperative and comfortable; no acute distress and not ill appearing Respiratory: normal respiratory effort, lungs clear to auscultation Cardiovascular: RRR, no murmur, no edema Gastrointestinal (Abdomen): Inspection/Auscultation: abdomen normal to inspection; abdomen not distended Percussion/Palpation: + abdomen tender (at medial aspect of prior nephrectomy incision in LLQ) and abdomen soft; no guarding, abdomen not rigid and abdomen not firm small opening in the LLQ nephrectomy incision with brownish, serosanguineous drainage on palpation, no jung odor. Skin: no rashes, warm and dry Psychiatric: A+Ox3, euthymic affect Results & Data Vital Signs (Past 12 Hours) Vital Signs Temp Pulse Resp BP Pulse Ox O2 Del Method 09/11/24 07:18 36.4 C L 78 18 126/78 97 Room Air Laboratory Results 09/11/24 09/10/24 09/10/24 Range/Units 09:12 16:04 16:03 WBC 10.52 11.14 H (4.8-10.8) K/ul RBC 3.55 L 3.45 L (4.70-6.10) M/uL Hgb 9.7 L 9.6 L (14.0-18.0) g/dl Hct 31.7 L 30.4 L (42.0-52.0) % MCV 89.3 88.1 (80.0-100.0) fL MCH 27.3 27.8 (25.0-34.0) pg MCHC 30.6 L 31.6 L (32.0-36.0) g/dL RDW Std Deviation 45.4 45.0 (36.4-46.3) fL RDW Coeff of Jil 13.9 14.1 (11.5-14.5) % Plt Count 339 405 H (130-400) K/uL MPV 10.1 9.4 (9.4-12.4) fL Immature Gran % (Auto) 0.5 % Neut % (Auto) 61.5 % Lymph % (Auto) 20.3 % Bartholomew % (Auto) 16.0 % Eos % (Auto) 1.3 % Baso % (Auto) 0.4 % Neut # (Auto) 6.85 H (1.40-6.50) K/uL Lymph # (Auto) 2.26 (1.20-3.40) K/uL Bartholomew # (Auto) 1.78 H (0.11-0.59) K/uL Eos # (Auto) 0.15 (0.00-0.50) K/uL Baso # (Auto) 0.04 (0.00-0.20) K/uL Immature Gran # (Auto) 0.06 (0.01-0.20) K/uL Sodium 136 135 L (136-145) mmol/L Potassium 4.5 4.1 (3.5-5.1) mmol/L Chloride 103 101 (98-107) mmol/L Carbon Dioxide 24 25 (21-32) mmol/L Anion Gap 9 9 (3-11) BUN 13 15 (6-23) mg/dl Creatinine 1.36 D 1.67 H (0.6-1.4) mg/dl Est Cr Clr Drug Dosing 53.7 43.8 ml/min eGFR 56.33 44.03 BUN/Creatinine Ratio 9.6 L 9.0 L (10-20) Glucose 105 H 115 H (70-99(Fasting)) mg/dl Calcium 8.8 8.8 (8.6-10.3) mg/dl Total Bilirubin 0.3 (0.2-1.0) mg/dl AST 11 L (13-39) U/L ALT 5 L (7-52) U/L Alkaline Phosphatase 52 (34-104) U/L Total Protein 7.7 (6.0-8.3) gm/dl Albumin 3.3 L (3.4-5.0) gm/dl Globulin 4.4 H (2.5-4.0) gm/dl Albumin/Globulin Ratio 0.8 L (0.9-2) Lipase 60 (11-82) U/L Procalcitonin 0.15 (0-0.5) ng/ml Blood Type O Positive Antibody Screen NEGATIVE Diagnostic Findings ABDOMEN AND PELVIS CT WITHOUT CONTRAST CT DOSE: 1392.63 mGy.cm HISTORY: Follow-up study in a patient with acute diverticulitis. re-eval, area now draining TECHNIQUE: Multiaxial CT images of the abdomen and pelvis were performed without contrast. A dose lowering technique was utilized adhering to the principles of ALARA. COMPARISON STUDY: 08/21/2024 FINDINGS: Mild coronary artery calcifications. Decreased attenuation of the cardiac blood pool suggestive of anemia. Clear lung bases. Limited evaluation of the solid abdominal organs without IV contrast. The spleen measures up to 12 cm in length. Mildly atrophic pancreas. Unchanged appearance of the adrenal glands. Cholecystectomy. Hepatic steatosis with mild hepatomegaly. Probable complex cyst of the superior pole right kidney measures 10 mm. No right-sided hydronephrosis. Absent left kidney. Decompressed urinary bladder with wall thickening. There is mild prostatomegaly. Atherosclerosis of the aorta without aneurysm. Small likely reactive retroperitoneal lymph nodes. No bowel obstruction. Colonic diverticulosis with acute diverticulitis again noted within the distal descending colon and rectosigmoid junction. Extraluminal air adjacent to the area of inflammation is again seen along with adjacent stranding and free fluid with ill-defined margins. The largest pocket of fluid measures approximately 2.5 x 1.1 cm on image 22. No definite drainable component.Sinus tract measures up to approximately 12 cm on image 233 series 3. Interval development of inflammatory stranding with air and debris also noted involving the adjacent abdominal wall and subcutaneous tissues with moderate synovitis. This follows what may be a chronic postoperative tract. Small fat filled umbilical hernia. No acute fracture. IMPRESSION: 1. Acute sigmoid diverticulitis redemonstrated. 2. Evidence of perforation again noted with fluid and extraluminal air adjacent to the descending sigmoid junction. Compared to the 08/21/2024 study there is progressive inflammation which extends into the adjacent abdominal wall musculature and subcutaneous tissues with 12 cm sinus tract. Surgical consultation is advised. 3. No bowel obstruction. 4. Additional findings as above. I PERSONALLY REVIEWED CT SCAN IMAGING AND CONCUR WITH ABOVE FINDINGS
[2024-09-11] MEDS: PIPERACILLIN/TAZOBACTAM 4.5 GM/100 ML BAG IV STA (12:15)
[2024-09-11] MEDS: PIPERACILLIN/TAZOBACTAM 4.5 GM/100 ML BAG IV SCH (16:23)
--- NOTE | 2024-09-11 16:29 | Hospitalist Progress Note ---
Date of Service September 11, 2024 Assessment & Plan (1) Diverticulitis: Plan 68-year-old male PMHx clear-cell carcinoma of L kidney s/p radical nephrectomy, colectomy secondary to diverticulitis, hypothyroidism, and GERD presenting after being referred by outpatient doctor for abnormal CT findings. #Diverticulitis Complicated by contained perforation. Patient had recently presented to [facility] 08/[address] showed large bowel contained perforation, but he was discharged on 08/22 with metronidazole and cefdinir. Follow-up with PCP for 09/03/2024 with persistent LLQ pain as well as low-grade fevers in which she was started on Flagyl for 7 days. Reevaluated by PCP on day of arrival for abscess which was drained and packed (dressing to be removed , 09/12/2024). PCP suspected seroma. CBC w/ resolution of leukocytosis at 10.52, hgb 9.7; BMP w/ stable creatinine of 1.36. CTAP (outpatient) reveals acute sigmoid diverticulitis re-demonstrated, evidence of perforation noted again with fluid extraluminal air adjacent to descending sigmoid colon with progressive inflammation from 08/21/2024 imaging extending into the adjacent abdominal wall musculature and subcu tissues with 12 cm sinus tract, no bowel obstruction identified IVF LR @ 100 mL/hr Acetaminophen fever/pain prn, Morphine severe pain prn Zofran prn N/V Discussed w/ pt his PCN allergy today --> not true allergy, more consistent with side effects. Patient felt comfortable switching abx. Given no response to multiple courses of flagyl/cephalosporin switch to IV Zosyn Gen sx consulted - supportive care. close monitoring of wound drainage & conservative management. (Discussed via [employer]) Wound care nurse consulted, appreciate recommendations. Advance diet. Chronic conditions: Clear cell carcinoma/nephrectomy: L radical nephrectomy 07/30/24 GERD: PPI Hypothyroidism: not on meds. #Clear-cell carcinoma/nephrectomy- L radical nephrectomy 07/30/2024 #GERD- Omeprazole #Hypothyroidism- No medications for such TSH : 6.681 --> recheck outpatient in 4-6 weeks. Dispo: Admit, med/sx VTE Prophylaxis: SCDs Discussed w/ General surgery 09/11. Admission and Anticipated Discharge Date Admission Date: September 10, 2024 Subjective Patient seen and examined this morning. Patient's family at bedside. Patient reports drainage from the wound site in his LLQ. He denies any abdominal pain. He had a BM prior to my arrival that was normal brown in color. Denies nausea or vomiting. Physical Exam Physical Exam: General: no acute distress; non-toxic appearing; well-nourished; cooperative HEENT: normocephalic, atraumatic; no scleral icterus; PERRLA w/ EOMs intact; vision and hearing grossly intact Neck: supple; no lymphadenopathy; trachea midline Skin: warm, dry without signs of tenting; no cyanosis; no rashes, bruising, lesions, or erythema noted CV: RRR Lungs: no acute respiratory distress; symmetrical chest wall expansion; clear breath sounds across all lung ruiz w/o adventitious sounds; no wheezing ABD: Soft, NTP; BS present; no distention; mild tenderness to LLQ MSK: no tics or fasciculations; no edema noted in the LEs b/l, nonerythematous Neuro: A&Ox3; normal mood and affect; fluent speech; no focal deficits; sensation grossly intact in the LEs b/l Results & Data Results & Data Vital Signs (Past 12 Hours) Vital Signs Temp Pulse Resp BP Pulse Ox O2 Del Method 09/11/24 15:46 36.6 C 82 20 136/84 98 Room Air 09/11/24 11:46 36.9 C 80 18 130/86 99 Room Air 09/11/24 07:18 36.4 C L 78 18 126/78 97 Room Air PG Care Time/CCT Total # of Minutes Spent Total Time Spent with Patient: Total time spent is greater than 50% in coordination of care (as documented) at patient's floor/unit and/or counseling patient: Coding Level of Care Code 19577 SUB INP/OBS CARE 3/50MIN Diagnoses Diverticulitis K57.92
[2024-09-11] MEDS: ZOLPIDEM TARTRATE 5 MG TAB PO PRN (21:19)
[2024-09-12 08:07] LABS: Hematocrit (blood only) 32.2 % (42.0-52.0); Hemoglobin 9.9 g/dl (14.0-18.0); Mean Corpuscular Hemoglobin 27.2 pg (25.0-34.0); Mean Corpuscular Hgb Conc 30.7 g/dL (32.0-36.0); Mean Corpuscular Volume 88.5 fL (80.0-100.0); Mean Platelet Volume 9.1 fL (9.4-12.4); Platelet Count 446 K/uL (130-400); RDW Coefficient of Variation 13.9 % (11.5-14.5); RDW Standard Deviation 45.1 fL (36.4-46.3); Red Blood Count 3.64 M/uL (4.70-6.10); White Blood Count 11.51 K/ul (4.8-10.8)
[2024-09-12 08:28] LABS: BUN Creatinine Ratio 6.5 (10-20); Calcium 8.9 mg/dl (8.6-10.3); Creatinine Clr Calc Pharmacy 47.8 ml/min; Potassium 4.2 mmol/L (3.5-5.1)
[2024-09-12] MEDS: LACTATED RINGER'S 1,000 ML IV SCH (10:02)
--- NOTE | 2024-09-12 13:27 | Surgery Progress Note ---
Date of Service September 12, 2024 Assessment & Plan (1) Abscess: (2) Large bowel perforation: (3) Abnormal CT of the abdomen: Plan 68 yo male with history of left radical nephrectomy in july for clear cell carcinoma of left kidney, prior sigmoid colon resection for perforated diver ticulitis years ago and recent admission at end of last month with perforated sigmoid diverticulitis with abscess who has been on oral antibiotics since discharge presented to ED with LLQ pain and repeat CT scan on 09/10/24 without contrast showing acute diverticulitis of sigmoid colon with extraluminal air and fluid consistent with microperforation however there is now gas and sinus tract extending to the left lower abdominal musculature. Liquid brownish drainage from abdominal incision on examination. Possible EC fistula vs drainage of prior perforated colon/abscess now draining from open wound. Would recommend IV Zosyn, close monitoring of wound drainage and conservative management. Patient aware of possible etiologies and if EC fistula would require extensive surgery given his surgical history and recent surgical intervention. Continue medical management. Okay for diet. Will follow along. Will likely require another 1-2 days of IV antibiotics. Dr. Segura has seen and examined patient, discussed above with patient and . Admission and Anticipated Discharge Date Admission Date: September 10, 2024 Subjective feeling great, no n,v no abdominal pain no fevers or chills tolerating diet 3 bowel movements today without blood Physical Exam Constitutional: WD/WN, vitals as above + obese, cooperative and comfortable; no acute distress and not ill appearing Gastrointestinal (Abdomen): Inspection/Auscultation: abdomen normal to inspection; abdomen not distended Percussion/Palpation: + abdomen tender (at LLQ nephrectomy incision site and open wound) and abdomen soft; no guarding, abdomen not rigid and abdomen not firm Brown liquid serosanguineous drainage from open wound in nephrectomy incision site Skin: no rashes, warm and dry Psychiatric: Orientation: alert and oriented x 3 Results & Data Vital Signs (Past 12 Hours) Vital Signs Temp Pulse Resp BP Pulse Ox O2 Del Method 09/12/24 06:56 36.8 C 76 16 147/81 H 96 Room Air Laboratory Results 09/12/24 Range/Units 07:40 WBC 11.51 H (4.8-10.8) K/ul RBC 3.64 L (4.70-6.10) M/uL Hgb 9.9 L (14.0-18.0) g/dl Hct 32.2 L (42.0-52.0) % MCV 88.5 (80.0-100.0) fL MCH 27.2 (25.0-34.0) pg MCHC 30.7 L (32.0-36.0) g/dL RDW Std Deviation 45.1 (36.4-46.3) fL RDW Coeff of Jil 13.9 (11.5-14.5) % Plt Count 446 H (130-400) K/uL MPV 9.1 L (9.4-12.4) fL Sodium 136 (136-145) mmol/L Potassium 4.2 (3.5-5.1) mmol/L Chloride 103 (98-107) mmol/L Carbon Dioxide 24 (21-32) mmol/L Anion Gap 9 (3-11) BUN 10 (6-23) mg/dl Creatinine 1.53 H (0.6-1.4) mg/dl Est Cr Clr Drug Dosing 47.8 ml/min eGFR 48.91 BUN/Creatinine Ratio 6.5 L (10-20) Glucose 115 H (70-99(Fasting)) mg/dl Calcium 8.9 (8.6-10.3) mg/dl
--- NOTE | 2024-09-12 16:26 | Hospitalist Progress Note ---
Date of Service September 12, 2024 Assessment & Plan (1) Diverticulitis: Plan 68-year-old male PMHx clear-cell carcinoma of L kidney s/p radical nephrectomy, colectomy secondary to diverticulitis, hypothyroidism, and GERD presenting after being referred by outpatient doctor for abnormal CT findings. #Diverticulitis Complicated by contained perforation. Patient had recently presented to [facility] 08/[address] showed large bowel contained perforation, but he was discharged on 08/22 with metronidazole and cefdinir. Follow-up with PCP for 09/03/2024 with persistent LLQ pain as well as low-grade fevers in which she was started on Flagyl for 7 days. Reevaluated by PCP on day of arrival for abscess which was drained and packed (dressing to be removed , 09/12/2024). PCP suspected seroma. CBC w/ mild increase in WBC to 11.5, creatinine pumped to 1.4. CTAP (outpatient) reveals acute sigmoid diverticulitis re-demonstrated, evidence of perforation noted again with fluid extraluminal air adjacent to descending sigmoid colon with progressive inflammation from 08/21/2024 imaging extending into the adjacent abdominal wall musculature and subcu tissues with 12 cm sinus tract, no bowel obstruction identified Additional IVF ordered 09/12. Acetaminophen fever/pain prn, Morphine severe pain prn Zofran prn N/V Discussed w/ pt his PCN allergy --> not true allergy, more consistent with side effects. Patient felt comfortable switching abx. Given no response to multiple courses of Flagyl/cephalosporin switch to IV Zosyn Gen sx consulted - supportive care. close monitoring of wound drainage & conservative management. Anticipate 1-2 more days of IV abx (Discussed via [employer]) Chronic conditions: Clear cell carcinoma/nephrectomy: L radical nephrectomy 07/30/24 GERD: PPI Hypothyroidism: not on meds. #Clear-cell carcinoma/nephrectomy- L radical nephrectomy 07/30/2024 #GERD- Omeprazole #Hypothyroidism- No medications for such TSH : 6.681 --> recheck outpatient in 4-6 weeks. Dispo: Admit, med/sx VTE Prophylaxis: SCDs Discussed w/ General surgery 09/12 Updated at bedside 09/12. Admission and Anticipated Discharge Date Admission Date: September 10, 2024 Subjective Patient seen and examined this morning. He feels that since switching his antibiotic to Zosyn, he feels his drainage from his abdominal wound has started to decrease. He denies any fevers, chills, abdominal pain. He states he is moving his bowels well. Physical Exam Physical Exam: General: no acute distress; non-toxic appearing; well-nourished; cooperative HEENT: normocephalic, atraumatic; no scleral icterus; PERRLA w/ EOMs intact; vision and hearing grossly intact Skin: warm, dry without signs of tenting; no cyanosis; no rashes, bruising, lesions, or erythema noted Lungs: no acute respiratory distress; symmetrical chest wall expansion ABD: Soft, NTP; BS present; no rebound/guarding; no distention Neuro: A&Ox3; normal mood and affect; fluent speech; no focal deficits Results & Data Results & Data Vital Signs (Past 12 Hours) Vital Signs Temp Pulse Resp BP Pulse Ox O2 Del Method 09/12/24 15:08 36.6 C 80 16 137/75 97 Room Air 09/12/24 06:56 36.8 C 76 16 147/81 H 96 Room Air PG Care Time/CCT Total # of Minutes Spent Total Time Spent with Patient: Total time spent is greater than 50% in coordination of care (as documented) at patient's floor/unit and/or counseling patient: Coding Level of Care Code 21094 SUB INP/OBS CARE 3/50MIN Diagnoses Diverticulitis K57.92
[2024-09-13 07:39] LABS: Hematocrit (blood only) 28.8 % (42.0-52.0); Hemoglobin 8.9 g/dl (14.0-18.0); Mean Corpuscular Hemoglobin 27.9 pg (25.0-34.0); Mean Corpuscular Hgb Conc 30.9 g/dL (32.0-36.0); Mean Corpuscular Volume 90.3 fL (80.0-100.0); Mean Platelet Volume 9.3 fL (9.4-12.4); Platelet Count 388 K/uL (130-400); RDW Coefficient of Variation 14.2 % (11.5-14.5); RDW Standard Deviation 46.2 fL (36.4-46.3); Red Blood Count 3.19 M/uL (4.70-6.10); White Blood Count 8.18 K/ul (4.8-10.8)
[2024-09-13 08:15] LABS: BUN Creatinine Ratio 5.8 (10-20); Calcium 8.6 mg/dl (8.6-10.3); Creatinine Clr Calc Pharmacy 47.4 ml/min; Potassium 4.3 mmol/L (3.5-5.1)
--- NOTE | 2024-09-13 10:10 | Surgery Progress Note ---
Date of Service September 13, 2024 Assessment & Plan (1) Colocutaneous fistula: Plan: Patient with hx of : Left laparoscopic hand assist Nephrectomy 07/30/24 Admitted 08/09 with concern for contained descending/sigmoid perforation on CT scan 09/10/24 Saw PCP had in office Incision and drainage LLQ post operative incisional area was then sent for an op CT scan and advised to come to ER Concern for colocutaneous fistula LLQ Dressing removed, small incision over post operative nephrectomy scar draining stool Wound care consult placed for ostomy bag Patient denies abd pain, n/v tolerating full liquids, reports having BM WBC wnl 8 (11) Discussed with patient surgical intervention would require an extensive surgery, Pt and desire to continue with conservative treatment measures Will discuss with Dr Mancera and further recommendation will be forthcoming. Admission and Anticipated Discharge Date Admission Date: September 10, 2024 Supervising Physician Co-Signing Physician Notes Patient seen examined, labs reviewed, agree with above. Recent history of left nephrectomy, followed by diverticulitis versus colon injury, admitted with colocutaneous fistula. It is draining well and an ostomy has been placed over it. He feels much better. No fevers, tolerating full liquids. On exam he is afebrile with stable vitals, incisions healing well, left sided port site with colostomy bag recently placed, no drainage as of our exam. Abdomen nontender. Continue to treat with antibiotics to decrease inflammation, continue medical management for colocutaneous fistula. If surgical intervention is warranted, will likely need evaluation at a tertiary center. Low fiber diet as tolerated. Subjective pt denies fever/chills, sob, cp, abdominal pain, n/v +bms Review of Systems Constitutional: no fever and no chills Respiratory: no dyspnea Cardiovascular: no chest pain Gastrointestinal: no abdominal pain, no nausea and no vomiting Integumentary: + wounds Physical Exam Constitutional: cooperative and comfortable; no acute distress Respiratory: normal respiratory effort and able to speak in complete sentences; no respiratory distress Cardiovascular: Rate/Rhythm: regular rate Gastrointestinal (Abdomen): Inspection/Auscultation: + abdominal surgical scar and + abdominal surgical incision Percussion/Palpation: abdomen soft; abdomen nontender Results & Data Vital Signs (Past 12 Hours) Vital Signs Temp Pulse BP Pulse Ox O2 Del Method 09/13/24 07:17 98.1 F 73 159/89 H 97 Room Air Results CBC w Diff Results: RBC 3.19 M/uL (4.70-6.10) L 09/13/24 WBC 8.18 K/ul (4.8-10.8) 09/13/24 Hgb 8.9 g/dl (14.0-18.0) L 09/13/24 Hct 28.8 % (42.0-52.0) L 09/13/24 MCV 90.3 fL (80.0-100.0) 09/13/24 MCH 27.9 pg (25.0-34.0) 09/13/24 MCHC 30.9 g/dL (32.0-36.0) L 09/13/24 RDW Standard Deviation 46.2 fL (36.4-46.3) 09/13/24 RDW Coefficient of Variation 14.2 % (11.5-14.5) 09/13/24 Plt Count 388 K/uL (130-400) 09/13/24 MPV 9.3 fL (9.4-12.4) L 09/13/24 Nucleated Red Blood Cells % (auto) 0.1 % 08/08 Nucleated RBC Absolute Count (auto) 0.02 K/uL (0.00-0.12) 0 08/08/24 Neutrophils (%) (Auto) 61.5 % 09/10/24 Lymphocytes (%) (Auto) 20.3 % 09/10/24 Monocytes # (Auto) 1.78 K/uL (0.11-0.59) H 09/10/24 Eosinophils # (Auto) 0.15 K/uL (0.00-0.50) 09/10/24 Immature Granulocyte % (Auto) 0.5 % 09/10/24 Neutrophils # (Auto) 6.85 K/uL (1.40-6.50) H 09/10/24 Lymphocytes # (Auto) 2.26 K/uL (1.20-3.40) 09/10/24 Monocytes # (Auto) 1.78 K/uL (0.11-0.59) H 09/10/24 Eosinophils # (Auto) 0.15 K/uL (0.00-0.50) 09/10/24 Basophils # (Auto) 0.04 K/uL (0.00-0.20) 09/10/24 Immature Granulocyte # (Auto) 0.06 K/uL (0.01-0.20) 5 Polychromasia 1+ 08/11/24 PG Care Time/CCT Total # of Minutes Spent Total Time Spent with Patient: Total time spent is greater than 50% in coordination of care (as documented) at patient's floor/unit and/or counseling patient: Coding Level of Care Code 64423 SUB INP/OBS CARE 06/08MIN Diagnoses Colocutaneous fistula K63.2
[2024-09-13 14:17] VITALS: RESP 16
--- NOTE | 2024-09-13 16:04 | Hospitalist Progress Note ---
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 #Diverticulitis Complicated by contained perforation. Patient had recently presented to [facility] 08/[address] showed large bowel contained perforation, but he was discharged on 08/22 with metronidazole and cefdinir. Follow-up with PCP for 09/03/2024 with persistent LLQ pain as well as low-grade fevers in which she was started on Flagyl for 7 days. Reevaluated by PCP on day of arrival for abscess which was drained and packed (dressing to be removed , 09/12/2024). PCP suspected seroma. CBC w/ resolution of leukocytosis , creatinine 1.54 (given recent nephrectomy this is likely patient's new baseline creatinine) CTAP (outpatient) reveals acute sigmoid diverticulitis re-demonstrated, evidence of perforation noted again with fluid extraluminal air adjacent to descending sigmoid colon with progressive inflammation from 08/21/2024 imaging extending into the adjacent abdominal wall musculature and subcu tissues with 12 cm sinus tract, no bowel obstruction identified Acetaminophen fever/pain prn, Morphine severe pain prn Zofran prn N/V Discussed w/ pt his PCN allergy --> not true allergy, more consistent with side effects Given no response to multiple courses of Flagyl/cephalosporin switch to IV Zosyn, he is tolerating well -> continue Gen sx consulted - supportive care. close monitoring of wound drainage & conservative management. Wound nurse consulted - ostomy applicator applied to aide w/ drainage. Patient will need home health set up prior to dc to help with supplies Chronic conditions: Clear cell carcinoma/nephrectomy: L radical nephrectomy 07/30/24 GERD: PPI Hypothyroidism: not on meds. #Clear-cell carcinoma/nephrectomy- L radical nephrectomy 07/30/2024 #GERD- Omeprazole #Hypothyroidism- No medications for such TSH : 6.681 --> recheck outpatient in 4-6 weeks. Dispo: Admit, med/sx VTE Prophylaxis: SCDs, encourage ambulation Updated at bedside 09/13 Discussed w/ CM & wound nurse 09/13. Admission and Anticipated Discharge Date Admission Date: September 10, 2024 Subjective Patient seen and examined this morning. He reports to be feeling well and denies any complaints. Physical Exam Physical Exam: General: no acute distress; non-toxic appearing; well-nourished; cooperative HEENT: normocephalic, atraumatic; no scleral icterus; PERRLA w/ EOMs intact; vision and hearing grossly intact Skin: warm, dry without signs of tenting; no cyanosis; no rashes, bruising, lesions, or erythema noted Lungs: no acute respiratory distress; symmetrical chest wall expansion MSK: no tics or fasciculations; no edema noted in the LEs b/l, nonerythematous Neuro: A&Ox3; normal mood and affect; fluent speech; no focal deficits Results & Data Results & Data Vital Signs (Past 12 Hours) Vital Signs Temp Pulse Pulse Resp BP Pulse Ox O2 Del Method 09/13/24 14:16 36.3 C L 89 16 125/78 98 Room Air 09/13/24 11:27 36.6 C 92 H 99/64 L 96 Room Air 09/13/24 07:17 36.7 C 73 159/89 H 97 Room Air PG Care Time/CCT Total # of Minutes Spent Total Time Spent with Patient: Total time spent is greater than 50% in coordination of care (as documented) at patient's floor/unit and/or counseling patient: Coding Level of Care Code 34811 SUB INP/OBS CARE 3/50MIN Diagnoses Diverticulitis K57.92
--- NOTE | 2024-09-14 06:35 | Surgery Progress Note ---
Date of Service September 14, 2024 Assessment & Plan (1) Colocutaneous fistula: Plan: Patient is s/p Left laparoscopic hand assist Nephrectomy 07/30/24 and he was admitted 08/09 with concern for contained descending/sigmoid perforation on CT scan 09/10/24. The patient did see his PCP had an office Incision and Drainage of the LLQ post operative incisional area was then sent for an op CT scan and advised to come to ER due to concern for colocutaneous fistula LLQ -Incision with ostomy bag in place overtop. Small amount of stool output appreciated this morning -Patient otherwise states he is feeling well. Denies abdominal pain, N/V, fevers or chills -Patient may have low fiber diet -VSS, afebrile, AM labs pending. -Continue antibiotics -Patient still continues to wish to treat conservatively at this time Admission and Anticipated Discharge Date Admission Date: September 10, 2024 Supervising Physician Co-Signing Physician Notes pnt S&E, labs reviewed. h/o colon perforation, now w/ colocutaneous fistula. tolerating diet, fistula output decreasing. +bm. labs okay. d/c to home, continue oral abx for several weeks. f/u w/ urologist. f/u with colorectal surgery as outpatient. Subjective Patient states he is feeling well this morning Denies abdominal pain, N/V/. Ostomy bag over was placed over incision site. This morning small amount of stool output appreciated in bag VSS and afebrile overnight. AM labs pending Physical Exam Constitutional: WD/WN, vitals as above Respiratory: normal respiratory effort, lungs clear to auscultation Cardiovascular: Rate/Rhythm: regular rate Gastrointestinal (Abdomen): Abdomen soft, nondistended, nontender to palpation Left sided port site with colostomy bag with small amount of stool appreciated in bag. Skin: no rashes, warm and dry Results & Data Vital Signs (Past 12 Hours) Vital Signs Temp Pulse Resp BP Pulse Ox O2 Del Method 09/13/24 22:55 36.7 C 87 16 123/79 97 Room Air 09/13/24 22:24 Room Air PG Care Time/CCT Total # of Minutes Spent Total Time Spent with Patient: Total time spent is greater than 50% in coordination of care (as documented) at patient's floor/unit and/or counseling patient: Coding [place] [address] SUB INP/OBS CARE 06/08MIN Patient Type Established Medical Decision Making Straight Forward Diagnoses Colocutaneous fistula K63.2
[2024-09-14 07:09] VITALS: BP 131/84; PULSE 79; TEMP 98.2; O2SAT 98
--- NOTE | 2024-09-14 08:30 | Discharge Summary ---
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 #Diverticulitis Complicated by contained perforation. Patient had recently presented to [facility] 08/[address] showed large bowel contained perforation, but he was discharged on 08/22 with metronidazole and cefdinir. Follow-up with PCP for 09/03/2024 with persistent LLQ pain as well as low-grade fevers in which she was started on Flagyl for 7 days. Reevaluated by PCP on day of arrival for abscess which was drained and packed CBC w/ resolution of leukocytosis , creatinine 1.54 (given recent nephrectomy this is likely patient's new baseline creatinine) CTAP (outpatient) reveals acute sigmoid diverticulitis re-demonstrated, evidence of perforation noted again with fluid extraluminal air adjacent to descending sigmoid colon with progressive inflammation from 08/21/2024 imaging extending into the adjacent abdominal wall musculature and subcu tissues with 12 cm sinus tract, no bowel obstruction identified Acetaminophen fever/pain prn Discussed w/ pt his PCN allergy --> not true allergy, more consistent with side effects Given no response to multiple courses of Flagyl/cephalosporin switched to IV Zosyn while inpatient. Discussed w/ Dr. Mancera 09/14 - recommend discharge on PO antibiotics x 1 month & to follow up w/ colorectal surgery. (nurse navigator notified) Sent home on Augmentin BID x 30 days. Probiotic sent in as well. Wound nurse consulted --> ostomy applicator applied to aide w/ drainage. CM to set up for supplies. Chronic conditions: Clear cell carcinoma/nephrectomy: L radical nephrectomy 07/30/24 GERD: PPI Hypothyroidism: not on meds Updated at bedside 09/14. Discussed w/ CM & Dr. Mancera 09/14. 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 States that the am of arrival, he awoke at 0100 and noticed an ulcer type growth on his LLQ at the skin surface. It was then 0130 when he got up to go to the bathroom and noticed that there was discharge coming from the area. States that the discharge is mixed with clear/bloody/pus type material and it just oozes out rather than squirting out. States that at no point did he have pain nor has he had fevers. Reports that he has been having normal bowel movements (more liquid than normal 2/2 being on antibiotics), and no N/V. Otherwise denying chest pain, SOB, palpitations, LUTS, weakness, syncope, URI symptoms, or sick contacts. No bleeding per rectum, no hematuria. . Has never had this happen before. ED evaluation reveals leukocytosis 11.14, H&H 9.6/30.4, platelets 405; sodium 135, creatinine 1.67, ratio 9, glucose 115, AST 11, ALT 5, beaming 3.3, globulin 4.4; lipase 60; procalcitonin 0.15; CTAP acute sigmoid diverticulitis redemonstrated, evidence of perforation noted again with fluid extraluminal air adjacent to descending sigmoid colon with progressive inflammation from 08/21/2024 imaging extending into the adjacent abdominal wall musculature and subcu tissues with 12 cm sinus tract, no bowel obstruction identified.; Provided with 500 mL NSS, metronidazole 500 mg IV, cefepime 2 g IV in ED. Please see Dr. Lombardo's attestation for adjustments/additions to treatment plan. Discharge Exam Constitutional WD/WN, vitals as above Eyes PERRL, conjunctivae normal, anicteric sclerae ENMT external ear and nose normal, oropharynx normal Respiratory breathing unlabored Cardiovascular well perfused Skin no rashes, warm and dry Psychiatric A+Ox3, euthymic affect Discharge Plan Discharge Items Patient Disposition: Home - Home Health Services Reason For Visit: DIVERTICULITIS, PERFORATION, ABSCESS SKIN Discharge Diagnosis: Diverticulitis, perforation Condition on Discharge: Fair Activity: Resume your previous activity Non-emergency contact: Primary Care Provider and Surgeon Call non-emergency contact if: you have any medication questions, your symptoms worsen and you have a fever Follow-up/Referrals: Marito Zaman, [Primary Care Provider] - Diet: Low Fiber Addtl Attending Provider Instructions: Mr. Maurice, You were recently hospitalized due to abnormal CT findings. You were found to have a fistula formation at the site of your perforated bowel. You were treated with IV antibiotics. Please see recommendations below regarding your discharge. Please take Augmentin twice daily for the next 30 days, this was recommended by our surgery team. Please take a probiotic daily. Please take Augmentin with food to avoid GI upset. Please follow up with general surgery and a colorectal surgeon on discharge. Our nurse navigator will work to set this up. Please try to follow a low fiber diet. The remainder of your medications may be resumed. If you develop any fevers, abdominal pain, chest pain, shortness of breath please report back to the ER for further care. Best of [place] & Have fun in [place]! Mary Martell PA-C Pending Studies at Discharge: No Stand-Alone Forms: My [facility] [place], Smoking Cessation Medications and DC Order Prescriptions: New amoxicillin-pot clavulanate 875-125 mg tablet 1 tab PO BID 30 Days Qty: 59 0RF Probiotic 15 billion cell capsule, sprinkle 1 cap PO DAILY Qty: 30 0RF Rx Instructions: do not crush/chew/cut; swallow whole OR may open and sprinkle in cold drink/food Continued acetaminophen [Tylenol Extra Strength] 500 mg tablet 1,000 mg PO Q6H PRN (Reason: Pain) omeprazole 40 mg capsule,delayed release(DR/EC) 40 mg PO DAILY Qty: 30 2RF tamsulosin 0.4 mg capsule 0.4 mg PO DAILY Qty: 90 1RF multivitamin Tablet 1 tab PO DAILY magnesium 250 mg Tablet 250 mg PO DAILY folic acid 800 mcg Tablet 0.8 mg PO DAILY cholecalciferol (vitamin D3) [Vitamin D3] 25 mcg (1,000 unit) Tablet 25 mcg PO DAILY potassium gluconate 595 mg (99 mg) Tablet 595 mg PO DAILY Discontinued cefdinir 300 mg capsule 300 mg PO Q12H Qty: 20 0RF Rx Instructions: PER PT "DID NOT START YET, PICKED UP FROM PHARMACY" ORDERED 09/10/24. Please take this medication twice daily approximately 12 hours apart for the next 10 days metronidazole 500 mg tablet 500 mg PO Q8H 10 Days Qty: 30 0RF Rx Instructions: STARTED 09/10/24 FOR 10 DAYS. Discharge Orders: Discharge Order (Routine); Ordered 09/14/24 Ordered By: Mary Martell Admission Data Admit Date/Time: 09/10/24 19:34 Attending Provider: Jon Bruno Admit Provider: Deedee Lombardo Primary Care Provider: Marito Zaman Other Providers: Yang Villa; Donavan Segura; [facility]; [facility],[place], Located Within [facility] Stay Data Consultations 09/10/24 18:37 ED Decision to Admit Stat 09/10/24 20:42 Consult General Surgery Routine Pending Results Patient Have Any Pending Studies at Discharge: No Discharge Instructions Given to Patient (Per Discharging Provider) Mr. Maurice, You were recently hospitalized due to abnormal CT findings. You were found to have a fistula formation at the site of your perforated bowel. You were treated with IV antibiotics. Please see recommendations below regarding your discharge. Please take Augmentin twice daily for the next 30 days, this was recommended by our surgery team. Please take a probiotic daily. Please take Augmentin with food to avoid GI upset. Please follow up with general surgery and a colorectal surgeon on discharge. Our nurse navigator will work to set this up. Please try to follow a low fiber diet. The remainder of your medications may be resumed. If you develop any fevers, abdominal pain, chest pain, shortness of breath please report back to the ER for further care. [facility] [place] & Have fun in [place]! Mary Martell PA-C Total Time Total Time Spent Total Time Spent (In Minutes): 45 Total Time Includes: Examination of the Patient, Discharge Planning, Medication Reconciliation and Communication With Other Providers Coding Level of Care Code 51482 INP/OBS DISCH >30 MIN Diagnoses Diverticulitis K57.92
== END 2024-09-14 13:52 | disposition home health service (06) | DRG 392 ==
LOC: ED 15:53 → SUATTDRO 19:34 → 3N 19:34